=== PATIENT | female | born 1970 | race African-American/Black ===

== ENCOUNTER 2019-07-17 11:00 | Inpatient (IN) | payer BC ==
[2019-07-22 16:00] VITALS: BMI 26.1
[2019-07-23] MEDS ORDERED: LIDOCAINE 1%-EPI 1:100,000 30 ML MDV IJ ONE (07:21)
[2019-07-23] MEDS ORDERED: GENTAMICIN SO4 80 MG/2 ML VIAL ONE (07:21)
[2019-07-23] MEDS ORDERED: VANCOMYCIN 1,000 MG VIAL (RESTRICTED TO ID ONLY) ONE ×2 (07:21→08:36)
[2019-07-23] MEDS ORDERED: THROMBIN (BOVINE) 5,000 UNIT VIAL TP ONE ×2 (07:24→09:32)
[2019-07-23] MEDS ORDERED: MIDAZOLAM HCL 2 MG/2 ML SINGLE DOSE VIAL ONE ×2 (07:26→08:20)
[2019-07-23] MEDS ORDERED: ROCURONIUM BROMIDE 50 MG/5 ML SYRINGE ONE ×2 (07:26→09:07)
[2019-07-23] MEDS ORDERED: SUCCINYLCHOLINE CHLORIDE 200 MG/10 ML SYRINGE ONE (07:26)
[2019-07-23] MEDS ORDERED: PROPOFOL 20 ML ONE (07:26)
[2019-07-23] MEDS ORDERED: fentaNYL CITRATE 250 MCG/5 ML VIAL ONE (07:26)
[2019-07-23] MEDS ORDERED: LIDOCAINE HCL/PF 2% SDV 5ML VIAL ONE (07:28)
[2019-07-23] MEDS ORDERED: ALBUTEROL SO4 8 GM HFA INHALER IH ONE (07:37)
[2019-07-23] MEDS ORDERED: DEXMEDETOMIDINE HCL 200 MCG/2 ML IVPB ONE (07:38)
[2019-07-23] MEDS ORDERED: BUPIVACAINE HCL/PF 0.5% (5 MG/ML) 30 ML VIAL IJ ONE ×3 (07:38→10:35)
--- NOTE | 2019-07-23 08:02 | HP ---
History & Physical Update - History History: No Change - Physical Physical: No Change - Assessment Assessment: No Change - Plan Plan: No Change
[2019-07-23] MEDS ORDERED: MORPHINE 5 MG/10 ML AMP - FOR COMPOUNDING USE ONLY ONE (08:09)
[2019-07-23] MEDS ORDERED: BUPIVACAINE LIPOSOME/PF (EXPAREL) 266 MG/20 ML VIAL ONE (08:13)
[2019-07-23] MEDS ORDERED: VANCOMYCIN 1,000 MG VIAL (RESTRICTED TO ID ONLY) IVPB ONE ×2 (08:30→09:29)
[2019-07-23] MEDS ORDERED: ceFAZolin SODIUM 1 GM VIAL ONE ×2 (08:36→21:28)
[2019-07-23] MEDS ORDERED: ceFAZolin SODIUM 1 GM VIAL IVPB ONE (08:40)
[2019-07-23] MEDS ORDERED: BACITRACIN 50,000 UNITS VIAL NR ONE (09:21)
[2019-07-23] MEDS ORDERED: GENTAMICIN 80MG PREMIX BAG IVPB ONE (09:26)
[2019-07-23] MEDS ORDERED: GELATIN, ABSORBABLE 12-7MM EACH SPONGE TP ONE (09:31)
[2019-07-23] MEDS ORDERED: BUPIVACAINE LIPOSOME/PF (EXPAREL) 266 MG/20 ML VIAL IJ ONE ×2 (10:35)
[2019-07-23] MEDS ORDERED: NEOSTIGMINE METHYLSULFATE 0.5 MG/1 ML - 10 ML MDV ONE (10:47)
[2019-07-23] MEDS ORDERED: GLYCOPYRROLATE 0.2 MG/1 ML VIAL ONE ×2 (10:52→10:54)
--- NOTE | 2019-07-23 11:38 | OP ---
Operative Note - Note: Operative Date: 07/23/19 Pre-Operative Diagnosis: lumbar stenosis, instability and lumbar radiculopathy Operation: revision of lumbar fusion L3-S1 with decompression, replacment of hardware Surgeon: Tin Schmitz Irrigation Pump Installer: Xochitl Licona (Present for 90minutes of case) Anesthesiologist/CLIENT SUPPORT ADMINISTRATOR: Santhosh Daugherty Anesthesia: General Estimated Blood Loss (mls): 30 Drains, Volume Out (mls): 400 (franks) Fluid Volume Replaced (mls): 1,600 Operative Report Dictated: Yes
[2019-07-23] MEDS ORDERED: KETOROLAC TROMETHAMINE 30 MG/1 ML VIAL ONE (11:40)
[2019-07-23] MEDS ORDERED: ACETAMINOPHEN INJECTION 100 ML IVPB ONE (11:40)
[2019-07-23] MEDS ORDERED: ONDANSETRON 4 MG/2 ML VIAL ONE (11:41)
[2019-07-23] MEDS ORDERED: diphenhydrAMINE HCL 25 MG CAPSULE (FP) PO PRN (11:43)
[2019-07-23] MEDS: ONDANSETRON 4 MG/2 ML VIAL IVPUSH PRN ×2 (11:43→20:45)
[2019-07-23] MEDS: KETOROLAC TROMETHAMINE 30 MG/1 ML VIAL IVPUSH ONE (11:45)
[2019-07-23] MEDS ORDERED: HEPARIN NA (PORCINE) 5,000 UNITS/ML 1ML VIAL SQ SCH (11:45)
[2019-07-23] MEDS ORDERED: morphine SULFATE/PF 0.5 MG/ML (2cc Syringe - QUVA) IT ONE (11:46)
[2019-07-23] MEDS ORDERED: ONDANSETRON 4 MG/2 ML VIAL IVPUSH PRN (11:46)
[2019-07-23] MEDS ORDERED: oxyCODONE HCL 5 MG TABLET PO PRN (11:46)
[2019-07-23] MEDS ORDERED: NALOXONE HCL 0.4 MG/ML VIAL IVPUSH PRN (11:46)
[2019-07-23] MEDS ORDERED: ACETAMINOPHEN 325 MG TABLET (FP) PO SCH (12:00)
[2019-07-23] MEDS: ACETAMINOPHEN 1000 MG/100 ML VIAL (NON FORMULARY) IVPB SCH ×2 (12:01→18:32)
[2019-07-23] MEDS: LACTATED RINGERS SOLUTION 1,000 ML/1,000 ML INFUS.BAG IV SCH (12:45)
--- NOTE | 2019-07-23 13:47 | HP ---
CHIEF COMPLAINT:L3-S1 lamintetomy PCP: HISTORY OF PRESENT ILLNESS: Patient is a 49 y/o female with a history of asthma, GERD, fibroids s/p hysterectomy, and low back pain who presents s/p lumbar surgery. Patient has been having back pain since 2008. She did not have any trauma or events at that time that caused the back pain. She had her first surgery in 2098. She tolerated her pain for a long time until she needed surgery for the second and third time in 2019. After her third surgery she was left unable to walk because she wasnt able to walke or have sensation in her left leg. To get around she had to use a walker. She currently denies any complaints. Denies nausea, vomiting, headache, shortness of breath, or chest pain. ER course was notable for: (1) (2) (3) Recent Travel: PAST MEDICAL HISTORY: asthma, GERD, fibroids s/p hysterectomy, and low back pain PAST SURGICAL HISTORY:3x back surgery, hysterectomy Social History: Smoking: never Alcohol: socially Drugs: medical marijuana Allergies latex Allergy (Verified 07/23/19 07:05) "rash from tape" No Known Drug Allergies Allergy (Verified 07/23/19 07:05) HOME MEDICATIONS: Home Medications Medication Instructions Recorded Baclofen 5 mg PO BID 07/22/19 Dexlansoprazole [Dexilant] 60 mg PO DAILY 07/22/19 HYDROmorphone [Dilaudid -] 2 mg PO Q4H PRN 07/22/19 Medical Marijuana Oil PO PRN PRN 07/22/19 Oxycodone HCl/Acetaminophen 1 tab PO BID PRN 07/22/19 [Percocet 5-325 mg Tablet] Salmeterol/Fluticasone [Advair 1 inh PO BID 07/22/19 100Mcg/50Mcg -] REVIEW OF SYSTEMS CONSTITUTIONAL: Absent: fever, chills, diaphoresis, generalized weakness, malaise, loss of appetite, weight change HEENT: Absent: rhinorrhea, nasal congestion, throat pain, throat swelling, difficulty swallowing, mouth swelling, ear pain, eye pain, visual changes CARDIOVASCULAR: Absent: chest pain, syncope, palpitations, irregular heart rate, lightheadedness , peripheral edema RESPIRATORY: Absent: cough, shortness of breath, dyspnea with exertion, orthopnea, wheezing, stridor, hemoptysis GASTROINTESTINAL: Absent: abdominal pain, abdominal distension, nausea, vomiting, diarrhea, constipation, melena, hematochezia GENITOURINARY: Absent: dysuria, frequency, urgency, hesitancy, hematuria, flank pain, genital pain MUSCULOSKELETAL: Absent: myalgia, arthralgia, joint swelling, back pain, neck pain SKIN: Absent: rash, itching, pallor HEMATOLOGIC/IMMUNOLOGIC: Absent: easy bleeding, easy bruising, lymphadenopathy, frequent infections ENDOCRINE: Absent: unexplained weight gain, unexplained weight loss, heat intolerance, cold intolerance NEUROLOGIC: Absent: headache, focal weakness or paresthesias, dizziness, unsteady gait, seizure, mental status changes, bladder or bowel incontinence PSYCHIATRIC: Absent: anxiety, depression, suicidal or homicidal ideation, hallucinations. PHYSICAL EXAMINATION Vital Signs - 24 hr 07/23/19 07/23/19 07/23/19 06:53 06:59 07:00 Temperature 98.2 F 98.2 F Pulse Rate 84 84 Respiratory 20 20 Rate Blood Pressure 109/67 109/67 O2 Sat by Pulse 99 Oximetry (%) 07/23/19 11:22 Temperature 97.6 F Pulse Rate 98 H Respiratory 14 Rate Blood Pressure 122/85 O2 Sat by Pulse 100 Oximetry (%) GENERAL: Awake, alert, and fully oriented, in no acute distress. HEAD: Normal with no signs of trauma. EYES: Pupils equal, round and reactive to light, extraocular movements intact, EARS, NOSE, THROAT: . Moist mucous membranes. LUNGS: Breath sounds equal, clear to auscultation bilaterally. No wheezes, and no crackles. No accessory muscle use. HEART: Regular rate and rhythm, normal S1 and S2 without murmur, rub or gallop. ABDOMEN: Soft, nontender, not distended, normoactive bowel sounds, MUSCULOSKELETAL: dressing over back with drain in place LOWER EXTREMITIES: 2+ pulses, warm,sensation intact, lesser on left lower extremity then right, able to wiggle toes. SKIN: Warm, dry, normal turgor, no rashes or lesions noted, normal capillary refill. Laboratory Results - last 24 hr 07/23/19 07/23/19 06:28 08:53 Blood Type O POSITIVE O POSITIVE Antibody Screen Negative ASSESSMENT/PLAN: Patient is a 49 y/o female with a history of asthma, GERD, fibroids s/p hysterectomy, and low back pain who presents s/p lumbar surgery. #S/P L3-L5 laminectomy, hardware removal and replacement - Surgery with Dr. Schmitz - pain management as per anesthesia - patient on a lot of narcotics as an outpatinet - remove franks tomorrow - continue Lyrica 300 TID - f/u with PT tomorrow , patient to do PT with or without brace - patient to have a brace - drain in place with minimal drainage #Asthma - continue Advair as needed - albuteol as needed #GERD - protonix 40 daily #DVT ppx - heaprin TID FEN - NPO over night Dispo: monitor on 4w, f/u with Dr. Schmitz Visit type - Emergency Visit Emergency Visit: Yes ED Registration Date: 07/23/19 Care time: The patient presented to the Emergency Department on the above date and was hospitalized for further evaluation of their emergent condition. - New Patient This patient is new to me today: Yes Date on this admission: 07/24/19 - Critical Care Critical Care patient: No ATTENDING PHYSICIAN STATEMENT I saw and evaluated the patient. I reviewed the resident's note and discussed the case with the resident. I agree with the resident's findings and plan as documented. SUBJECTIVE: OBJECTIVE: ASSESSMENT AND PLAN:
[2019-07-23] MEDS ORDERED: ALBUTEROL SO4 0.083% IH SOL 2.5 MG/3 ML VIAL.NEB. NEB PRN (14:17)
[2019-07-23] MEDS: DOCUSATE SODIUM 100 MG CAPSULE (FP) PO SCH ×2 (15:08→21:50)
[2019-07-23] MEDS: oxyCODONE HCL 5 MG TABLET PO PRN (15:20)
--- NOTE | 2019-07-23 16:13 | PN ---
Teaching Attending Note Name of Resident: Marlin Baez ATTENDING PHYSICIAN STATEMENT I saw and evaluated the patient. I reviewed the resident's note and discussed the case with the resident. I agree with the resident's findings and plan as documented. SUBJECTIVE: CC: s/p lower back sx . HPI: 49 y/o lady with h/o asthma, GERD, fibroids s/p hysterectomy, and low back pain with previous lower back surgeries who presented for sx. patient had 3 surgeries to the lumbar area so far, with resultant LL ext weakness and numbness to a point she became walker dependent. she came fore revision of the fusion today. now she is awake, has minimal lower back pain, denies any numbness or tingling. has no CP or SOB. she received epidural injection in OR and franks was placed. OBJECTIVE: NAD,awake, alert, oriented x 3. MMM, no LAP in neck, NC on. no facial droop. CV: RRR, no MRG Lungs: CATB Ext : no edema or erythema on upper or lower ext Neuro: EOMI, round equal pupils, no facial droop, nl facial sensation , strength 5/5 in upper extremities proximally and distally. RLE: hip flexion 4/5 limited by pain, knee flexion 4/5 and knee extension 5/5. ankle dorsiflexion and plantar flexion 5/5 . LLE: hip flexion 2/5 limited by pain, knee flexion 4/5 and knee extension 4/5. ankle dorsiflexion and plantar flexion 5/5 . sensation to light touch nl. . ASSESSMENT AND PLAN: 49 y/o lady with h/o asthma, GERD, fibroids s/p hysterectomy, and low back pain with previous lower back surgeries who presented for sx. 1- h/o Spinal stenosis s/p revision of fusion L3-s1. - cont franks, will dc tomorrow - oxy ordered for pain. management per anesthesia for now. - PT in am - TLSO ordered but will not delay PT - monitor neuro exam. will evaluate deficits in am - will order labs tomorrow - tele monitoring for now 2- H/o Asthma, cont inhalers 3- DVT px: heparin dispo : HLOC
[2019-07-23] MEDS ORDERED: DEXTROSE 5%-WATER - 50 ML IVPB ONE (21:28)
[2019-07-23] MEDS: PREGABALIN 100 MG CAPSULE PO SCH (21:49)
[2019-07-23] MEDS: BACLOFEN 10 MG TABLET (FP) PO SCH (21:49)
[2019-07-23] MEDS: HEPARIN NA (PORCINE) 5,000 UNITS/ML 1ML VIAL SQ SCH (21:50)
[2019-07-23] MEDS: CEFAZOLIN 1 GM in DEXTROSE 5%-WATER - 50 ML IVPB SCH (21:50)
[2019-07-23] MEDS: FLUTICASONE/SALMETEROL 100 MCG/50 MCG DISKUS IH SCH (22:00)
[2019-07-24] MEDS: oxyCODONE HCL 5 MG TABLET PO PRN ×3 (00:04→19:54)
[2019-07-24] MEDS: ACETAMINOPHEN 1000 MG/100 ML VIAL (NON FORMULARY) IVPB SCH ×4 (00:18→17:30)
[2019-07-24] MEDS: CEFAZOLIN 1 GM in DEXTROSE 5%-WATER - 50 ML IVPB SCH ×3 (03:06→17:30)
[2019-07-24] MEDS ORDERED: ceFAZolin SODIUM 1 GM VIAL ONE ×3 (03:36→17:25)
[2019-07-24] MEDS ORDERED: DEXTROSE 5%-WATER - 50 ML IVPB ONE ×3 (03:36→17:25)
[2019-07-24] MEDS: HEPARIN NA (PORCINE) 5,000 UNITS/ML 1ML VIAL SQ SCH ×3 (05:13→22:31)
[2019-07-24] MEDS: DOCUSATE SODIUM 100 MG CAPSULE (FP) PO SCH ×3 (05:13→22:32)
[2019-07-24] MEDS: PREGABALIN 100 MG CAPSULE PO SCH ×3 (05:13→22:32)
[2019-07-24] MEDS: ONDANSETRON 4 MG/2 ML VIAL IVPUSH PRN (05:13)
[2019-07-24 08:08] LABS: HEMATOCRIT 28.7 % (32.4-45.2); HEMOGLOBIN 9.8 GM/dL (10.7-15.3); MCH 31.1 pg (25.7-33.7); MCHC 34.1 g/dl (32.0-36.0); MEAN CELL VOLUME 91.3 fl (80-96); MEAN PLT VOLUME 10.6 fl (7.5-11.1); PLATELET COUNT 247 K/MM3 (134-434); RBC 3.15 M/mm3 (3.60-5.2); RDW 14.9 % (11.6-15.6)
[2019-07-24 08:37] LABS: BLOOD UREA NITROGEN 5.9 mg/dL (7-18); CALCIUM 8.4 mg/dL (8.5-10.1); CREATININE 0.7 mg/dL (0.55-1.3); POTASSIUM 3.5 mmol/L (3.5-5.1)
--- NOTE | 2019-07-24 09:03 | PN ---
Progress Note (short form) - Note Progress Note: Surgery POD #1 revision of lumbar fusion L3-S1 with decompression and revision. Patient seen and examined at bedside with no complaints. She states that she still has a "heaviness" in her left leg which she had preoperatively. She has not been out of bed yet, but her franks was just removed and she has been tolerating her diet. Her pain is controlled and she denies any CP, SOB, N/V, fever or chills. Vital Signs Temp 98.3 F 07/24/19 02:00 Pulse 99 H 07/24/19 06:00 Resp 20 07/24/19 06:00 BP 109/58 L 07/24/19 06:00 Pulse Ox 100 07/23/19 21:00 Intake & Output 07/23/19 07/23/19 07/24/19 11:59 23:59 11:59 Intake Total 6189 071 8105 Output Total 620 435 40 Balance 1180 -35 1610 Intake: IV 1800 1250 LACTATED RINGERS SOLUTION 1250 1,000 ml In 1,000 ml @ 125 mls/hr IV ASDIR NEFTALY Rx#:[id number] IVPB 400 Oral 400 Output: Drainage 20 235 40 Right Lower Back 205 40 Urine 400 200 Estimated Blood Loss 200 Other: Voiding Method Indwelling Catheter Bowel Movement No CBC, BMP 07/24/19 07:13 07/24/19 07:13 PE: A&Ox3, NAD Unlabored resp on RA Lumbar spine: Incision c/d/i with surrounding tissue intact with no erythema, edema or evidence of collection or d/c. Drain removed with tip fully intact, ostomy clean and dry with no active d/c. B/L LE compartments soft, supple and non-tender with 5/5 dorsi/plantar flexion and +2 DP pulses Problem List - Problems (1) S/P lumbar fusion Assessment/Plan: POD #1 multilumbar decompression/fusion and revision. Patient doing well. -Regular diet -OOB with TLSO brace as tolerated -DVT prophylaxis -Encourage IS -D/c planning for home later today pending PT eval, TOV and pain control Evaluation and plan discussed with Dr Schmitz Code(s): Z98.1 - ARTHRODESIS STATUS
[2019-07-24] MEDS: FERROUS SO4 325 MG TABLET (FP) PO SCH (10:11)
[2019-07-24] MEDS: oxyCODONE HCL 10 MG SUSTAINED ACTING TABLET PO SCH ×2 (10:11→23:57)
[2019-07-24] MEDS: BACLOFEN 10 MG TABLET (FP) PO SCH ×2 (10:11→22:31)
[2019-07-24] MEDS: PANTOPRAZOLE 40 MG TABLET (FP) PO SCH (10:11)
[2019-07-24] MEDS: FOLIC ACID 1 MG TABLET (FP) PO SCH (10:12)
[2019-07-24] MEDS: FLUTICASONE/SALMETEROL 100 MCG/50 MCG DISKUS IH SCH ×2 (10:13→22:32)
--- NOTE | 2019-07-24 11:04 | PN ---
Progress Note (short form) - Note Progress Note: Anesthesia/pain Pt seen and examined S:Alert and awake residual pain O: Vital Signs Temperature 98.3 F 07/24/19 02:00 Pulse Rate 99 H 07/24/19 06:00 Respiratory Rate 20 07/24/19 06:00 Blood Pressure 109/58 L 07/24/19 06:00 O2 Sat by Pulse Oximetry (%) 100 07/23/19 21:00 CBC, BMP 07/24/19 07:13 07/24/19 07:13 A/P: Current Active Problems S/P lumbar fusion (Acute) s/p L3-S1 lumbar fusion doing well post op Encourage to take po pain meds as needed Continue Current care Dino Tanner M.D.
[2019-07-24] MEDS: LACTATED RINGERS SOLUTION 1,000 ML/1,000 ML INFUS.BAG IV SCH (11:45)
--- NOTE | 2019-07-24 16:25 | SURG ---
Surgery Jet Piercer Operator Note Jet Piercer Operator: Xochitl Licona PA-C Date of Service: 07/24/19 Diagnosis: L34 stenosis and facet arthropathy above L4-5 fusion with persisting compression Procedure: bilateral laminectomies of L34 bilateral laminectomies of L45 bilateral reoperative exposure L5S1 L34 transpedicular approach L45 transpedicular approach fluoroscopy microdissection exploration of spinal fusion interbody CAGE L34 interbody and posterior/lateral arthrodesis L34 posterior/lateral arthrodesis L45 posterior/lateral arthrodesis L5S1 L3-S1 posterior segmental instrumentation(technically challenging) local autograft L3 osteotomy L4 osteotomy L5 osteotomy S1 osteotomy removal posterior segmental instrumenation bilateral soft tissue advancement flaps(50cm) I was present for >50 % of the operation. In at 8: 35 until 9:20 and then again 10:11 to 11:19. For further detail, please refer to operative report. Visit type - Case Type Case Type: Scheduled - Emergency Emergency Visit: No - New patient This patient is new to me today: Yes Date on this admission: 07/24/19
--- NOTE | 2019-07-24 17:39 | PN ---
Physical Exam: SUBJECTIVE: Patient seen and examined OBJECTIVE: Vital Signs Period Temp Pulse Resp BP Sys/Mcnamara Pulse Ox Last 24 Hr 98.3 F-103.1 F 75-99 18-20 97-137/57-75 98-100 GENERAL: The patient is awake, alert, and fully oriented, in no acute distress. HEAD: Normal with no signs of trauma. EYES: PERRL, extraocular movements intact, sclera anicteric, conjunctiva clear. No ptosis. ENT: Ears normal, nares patent, oropharynx clear without exudates, moist mucous membranes. NECK: Trachea midline, full range of motion, supple. LUNGS: Breath sounds equal, clear to auscultation bilaterally, no wheezes, no crackles, no accessory muscle use. HEART: Regular rate and rhythm, S1, S2 without murmur, rub or gallop. ABDOMEN: Soft, nontender, nondistended, normoactive bowel sounds, no guarding, no rebound, no hepatosplenomegaly, no masses. EXTREMITIES: 2+ pulses, warm, well-perfused, no edema. NEUROLOGICAL: Cranial nerves II through XII grossly intact. Normal speech, gait not observed. PSYCH: Normal mood, normal affect. SKIN: Warm, dry, normal turgor, no rashes or lesions noted Laboratory Results - last 24 hr 07/24/19 07/24/19 07:13 07:13 WBC 8.0 RBC 3.15 L Hgb 9.8 L Hct 28.7 L MCV 91.3 MCH 31.1 MCHC 34.1 RDW 14.9 Plt Count 247 MPV 10.6 Sodium 139 Potassium 3.5 Chloride 105 Carbon Dioxide 28 Anion Gap 6 L BUN 5.9 L Creatinine 0.7 Est GFR (CKD-EPI)AfAm 117.09 Est GFR (CKD-EPI)NonAf 101.02 Random Glucose 100 Calcium 8.4 L Active Medications Generic Name Dose Route Start Last Admin Trade Name Freq PRN Reason Stop Dose Admin Acetaminophen 1,000 mg 07/23/19 12:00 07/24/19 17:30 Ofirmev Injection - IVPB 07/24/19 23:59 1,000 mg Q6H NEFTALY Administration Acetaminophen 650 mg 07/24/19 17:26 Tylenol - PO Q6H PRN FEVER Albuterol Sulfate 1 amp 07/23/19 14:17 Ventolin 0.083% Nebulizer Soln - NEB Q4H PRN SHORT OF BREATH/WHEEZING Baclofen 5 mg 07/23/19 22:00 07/24/19 10:11 Lioresal - PO 5 mg BID NEFTALY Administration Diphenhydramine HCl 25 mg 07/23/19 11:46 Benadryl Injection - IVPUSH ONCE PRN FOR ITCHING Diphenhydramine HCl 25 mg 07/23/19 11:43 Benadryl - PO Q6H PRN FOR ITCHING Docusate Sodium 100 mg 07/23/19 14:00 07/24/19 13:38 Colace - PO 100 mg TID NEFTALY Administration Ferrous Sulfate 325 mg 07/24/19 10:00 07/24/19 10:11 Feosol - PO 325 mg DAILY NEFTALY Administration Folic Acid 1 mg 07/24/19 10:00 07/24/19 10:12 Folic Acid - PO 1 mg DAILY NEFTALY Administration Heparin Sodium (Porcine) 5,000 unit 07/23/19 22:00 07/24/19 13:38 Heparin - SQ 5,000 unit Q8H NEFTALY Administration Lactated Ringer's 1,000 ml in 1,000 mls @ 125 mls/hr 07/23/19 11:45 07/24/19 11:45 Lactated Ringers Solution IV 125 mls/hr ASDIR NEFTALY Administration Cefazolin Sodium 1 gm/ 50 mls @ 100 mls/hr 07/23/19 21:30 07/24/19 17:30 Dextrose IVPB 100 mls/hr Q8H-IV NEFTALY Administration Naloxone HCl 0.4 mg 07/23/19 11:46 Narcan - IVPUSH ONCE PRN Sedation Ondansetron HCl 4 mg 07/23/19 11:46 Zofran Injection IVPUSH ONCE PRN NAUSEA Ondansetron HCl 4 mg 07/23/19 11:43 07/24/19 05:13 Zofran Injection IVPUSH 4 mg Q6H PRN Administration NAUSEA Oxycodone HCl 5 mg 07/23/19 11:46 Roxicodone - PO Q3H PRN Mild Pain 1-3 Oxycodone HCl 10 mg 07/23/19 11:46 07/24/19 05:13 Roxicodone - PO 10 mg Q3H PRN Administration Moderate Pain 4-6 Oxycodone HCl 10 mg 07/24/19 11:46 07/24/19 10:11 Oxycontin - PO 10 mg BID NEFTALY Administration Pantoprazole Sodium 40 mg 07/24/19 10:00 07/24/19 10:11 Protonix - PO 40 mg DAILY NEFTALY Administration Pregabalin 300 mg 07/23/19 22:00 07/24/19 12:21 Lyrica - PO 300 mg TID NEFTALY Administration Fluticasone/Salmeterol 1 puff 07/23/19 22:00 07/24/19 10:13 Advair 100mcg/50mcg - IH 1 puff BID NEFTALY Administration ASSESSMENT/PLAN: ATTENDING PHYSICIAN STATEMENT I saw and evaluated the patient. I reviewed the resident's note and discussed the case with the resident. I agree with the resident's findings and plan as documented. SUBJECTIVE: OBJECTIVE: ASSESSMENT AND PLAN:
--- NOTE | 2019-07-24 18:53 | PN ---
Teaching Attending Note Name of Resident: Ish Castillo ATTENDING PHYSICIAN STATEMENT I saw and evaluated the patient. I reviewed the resident's note and discussed the case with the resident. I agree with the resident's findings and plan as documented. SUBJECTIVE: pain in back. had fever this afternoon. OBJECTIVE: NAD,awake CV: RRR, no MRG Lungs: CATB Ext : no edema or erythema on upper or lower ext Neuro of Le: RLE: hip flexion 5/5 , knee flexion 5/5 and knee extension 5/5. ankle dorsiflexion and plantar flexion 5/5 . LLE: hip flexion 3/5 limited by pain, knee flexion 4/5 and knee extension 4/5. ankle dorsiflexion and plantar flexion 5/5 . sensation to light touch decreased on LLE . reflexes nee jerk 1+ on R and 0 on L ASSESSMENT AND PLAN: 49 y/o lady with h/o asthma, GERD, fibroids s/p hysterectomy, and low back pain with previous lower back surgeries who presented for sx. 1- h/o Spinal stenosis s/p revision of fusion L3-s1. - franks dc'd . patient did not void and was straight cathed twice - now has fever, will place a franks, get UA and if Positive U cx. send blood cx - pain management oxycontin and oxycodone 2- normocytic anemia: likely acute blood loss but suspect chronci anemia due to reproted blood loss of 30 cc only. need full w/u as out pt if it does not recover. and maybe heme eval 3- H/o Asthma, cont inhalers 4- DVT px: heparin Dispo : HLOC
[2019-07-24 19:57] LABS: PH,URINE 7.5 (5.0-8.0); URINE APPEARANCE CLEAR; URINE BILIRUBIN NEGATIVE (NEGATIVE); URINE COLOR YELLOW; URINE GLUCOSE (UA) NEGATIVE (NEGATIVE); URINE KETONE NEGATIVE (NEGATIVE); URINE LEUK ESTERASE NEGATIVE (NEGATIVE); URINE NITRITE NEGATIVE (NEGATIVE); URINE PROTEIN NEGATIVE (NEGATIVE); URINE UROBILINOGEN 0.2 mg/dL (0.2-1.0)
[2019-07-24] MEDS ORDERED: KETOROLAC TROMETHAMINE 30 MG/1 ML VIAL IM ONE (20:49)
[2019-07-25 00:48] LABS: BASO % 0.4 % (0-2.0); HEMOGLOBIN 10.3 GM/dL (10.7-15.3); LYMPH % 13.1 % (8-40); MCHC 32.2 g/dl (32.0-36.0); MEAN CELL VOLUME 93.2 fl (80-96); MEAN PLT VOLUME 11.4 fl (7.5-11.1); MONO % 9.3 % (3.8-10.2); NEUT % 77.2 % (42.8-82.8); PLATELET COUNT 245 K/MM3 (134-434); RBC 3.44 M/mm3 (3.60-5.2); RDW 15.2 % (11.6-15.6)
[2019-07-25 01:09] LABS: ALBUMIN 2.8 g/dl (3.4-5.0); BILIRUBIN,DIRECT 0.1 mg/dL (0.0-0.2); BILIRUBIN,TOTAL 0.2 mg/dL (0.2-1); BLOOD UREA NITROGEN 4.4 mg/dL (7-18); CALCIUM 8.2 mg/dL (8.5-10.1); CREATININE 0.9 mg/dL (0.55-1.3); POTASSIUM 3.4 mmol/L (3.5-5.1); TOT PROT 5.9 g/dl (6.4-8.2)
[2019-07-25] MEDS ORDERED: SODIUM PHOSPHATE/NA BIPHOS 133 ML ENEMA PR ONE (01:09)
[2019-07-25] MEDS ORDERED: VANCOMYCIN 1 GM in D5W (PRE-DOCKED) 1,000 MG/250 ML IVPB ONE (01:16)
[2019-07-25] MEDS ORDERED: LACTATED RINGERS SOLUTION 1,000 ML/1,000 ML INFUS.BAG IV SCH ×2 (01:30→10:28)
--- NOTE | 2019-07-25 01:44 | HOSP ---
Physical Examination Vital Signs: Vital Signs Temperature 98.7 F 07/25/19 00:00 Pulse Rate 124 H 07/25/19 00:00 Respiratory Rate 20 07/24/19 17:28 Blood Pressure 106/64 07/24/19 20:00 O2 Sat by Pulse Oximetry (%) 100 07/24/19 21:00 Labs: CBC, BMP 07/25/19 00:00 07/25/19 00:00 Hospitalist Encounter Assessment: 49yo woman s/p spinal stenosis s/p revision of fusion L3-s1 -07/23, POD #3, developed high fever of 103F this evening, tachycardic, +lactic acidosis of 3, new leukocytosis. I believe she is septic at this time, must evaluate for different sources of infection. CXR showed only some possible right lung base atelectasis, blood cultures sent, UA, urine culture sent. MADYSON to inspect surgical site, evaluate for proper wound healing dressing change. ID consult. For now will monitor VS, fever curve closely. Pt c/o lower abdominal pain, chemistry, hepatic panel , liver u/s ordered. Treat with broad spectrum abx at this time- vancomcyin/pip/tazo., IV fluids. Must trend lactate.
[2019-07-25] MEDS ORDERED: DEXTROSE 5%-WATER 100 ML IVPB ONE ×3 (02:09→17:03)
[2019-07-25] MEDS ORDERED: PIPERACILLIN/TAZOBACTAM 4.5 GM VIAL IVPB ONE ×3 (02:09→17:03)
[2019-07-25] MEDS: PIPERACILLIN/TAZOB 4.5 GM 4.5 GM in DEXTROSE 5%-WATER 100 ML IVPB SCH ×3 (02:25→17:23)
[2019-07-25] MEDS: oxyCODONE HCL 5 MG TABLET PO PRN ×2 (06:09→15:29)
[2019-07-25] MEDS: PREGABALIN 100 MG CAPSULE PO SCH ×3 (06:09→22:07)
[2019-07-25] MEDS: DOCUSATE SODIUM 100 MG CAPSULE (FP) PO SCH ×3 (06:10→22:07)
[2019-07-25] MEDS: HEPARIN NA (PORCINE) 5,000 UNITS/ML 1ML VIAL SQ SCH ×3 (06:10→22:15)
[2019-07-25] MEDS: ACETAMINOPHEN 325 MG TABLET (FP) PO PRN ×3 (06:10→22:07)
[2019-07-25 06:50] LABS: BASO % 0.2 % (0-2.0); EOS % 0.1 % (0-4.5); HEMATOCRIT 28.9 % (32.4-45.2); HEMOGLOBIN 9.8 GM/dL (10.7-15.3); LYMPH % 13.2 % (8-40); MCH 30.9 pg (25.7-33.7); MCHC 33.9 g/dl (32.0-36.0); MEAN CELL VOLUME 91.1 fl (80-96); MEAN PLT VOLUME 11.2 fl (7.5-11.1); MONO % 10.5 % (3.8-10.2); PLATELET COUNT 233 K/MM3 (134-434); RBC 3.17 M/mm3 (3.60-5.2); RDW 15.4 % (11.6-15.6); WHITE BLOOD COUNT 15.9 K/mm3 (4.0-10.0)
[2019-07-25 06:59] LABS: ALBUMIN 2.6 g/dl (3.4-5.0); ALK PHOS 78 U/L (45-117); ANION GAP 6 MMOL/L (8-16); BILIRUBIN,TOTAL 0.3 mg/dL (0.2-1); BLOOD UREA NITROGEN 5.2 mg/dL (7-18); CALCIUM 8.4 mg/dL (8.5-10.1); CHLORIDE 103 mmol/L (98-107); CO2 30 mmol/L (21-32); CREATININE 0.7 mg/dL (0.55-1.3); GLUCOSE,RANDOM 104 mg/dL (74-106); LDH 133 U/L (84-246); POTASSIUM 3.3 mmol/L (3.5-5.1); SGOT/AST 28 U/L (15-37); SGPT/ALT 25 U/L (13-61); SODIUM 139 mmol/L (136-145); TOT PROT 5.6 g/dl (6.4-8.2)
[2019-07-25] MEDS ORDERED: POTASSIUM CHLORIDE TABS 20 MEQ TABLET.ER (FP) PO ONE (07:29)
[2019-07-25] MEDS ORDERED: KCL 10 MEQ IVPB 10 MEQ/100 ML INFUS.BAG IVPB SCH (07:30)
[2019-07-25] MEDS: FERROUS SO4 325 MG TABLET (FP) PO SCH (09:10)
[2019-07-25] MEDS: oxyCODONE HCL 10 MG SUSTAINED ACTING TABLET PO SCH ×2 (09:10→22:15)
[2019-07-25] MEDS: BACLOFEN 10 MG TABLET (FP) PO SCH ×2 (09:10→22:09)
[2019-07-25] MEDS: PANTOPRAZOLE 40 MG TABLET (FP) PO SCH (09:10)
[2019-07-25] MEDS: FOLIC ACID 1 MG TABLET (FP) PO SCH (09:11)
[2019-07-25] MEDS: FLUTICASONE/SALMETEROL 100 MCG/50 MCG DISKUS IH SCH ×2 (09:14→22:20)
[2019-07-25] MEDS ORDERED: POLYETHYLENE GLYCOL 3350 119 GM BTL PO ONE (13:31)
[2019-07-25] MEDS ORDERED: POLYETHYLENE GLYCOL 3350 119 GM BTL PO PRN (13:32)
--- NOTE | 2019-07-25 14:24 | PN ---
Physical Exam: SUBJECTIVE: Patient seen and examined. Pt. had fever to 103.1 earlier in the evening. Pt. had fever over night to 101.1 with continued elevated WBC count. Pt. started on Zosyn and given Vancomycin x 1 dose. OBJECTIVE: Vital Signs Period Temp Pulse Resp BP Sys/Mcnamara Pulse Ox Last 24 Hr 98.7 F-103.1 F 89-128 18-20 106-137/60-72 100 GENERAL: The patient is awake, alert, and fully oriented, in no acute distress. HEAD: Normal with no signs of trauma. EYES: PERRL, extraocular movements intact, sclera anicteric, conjunctiva clear. No ptosis. ENT: Ears normal, nares patent, oropharynx clear without exudates, moist mucous membranes. NECK: Trachea midline, full range of motion, supple. LUNGS: Breath sounds equal, clear to auscultation bilaterally, no wheezes, no crackles, no accessory muscle use. HEART: Regular rate and rhythm, S1, S2 without murmur, rub or gallop. ABDOMEN: Soft, nontender, nondistended, normoactive bowel sounds, no guarding, no rebound, no hepatosplenomegaly, no masses. EXTREMITIES: 2+ dorsal pedal pulses, warm, no clf tenderness, well-perfused, no edema. B/l UE: 5/5 strength through out. Proximal LLE: 3/5, Distal LLE 4/5 strength throughout, RLE: 5/5 muscle strength throughout NEUROLOGICAL: Cranial nerves II through XII grossly intact. Normal speech, gait not observed. LLE: numbness- unchanged since prior to procedure PSYCH: Normal mood, normal affect. SKIN: Warm, dry, normal turgor, back skin wounds non-purulent, non-erythematous Laboratory Results - last 24 hr 07/24/19 07/25/19 07/25/19 19:00 00:00 00:00 WBC 17.0 H RBC 3.44 L Hgb 10.3 L Hct 32.0 L MCV 93.2 MCH 30.0 MCHC 32.2 RDW 15.2 Plt Count 245 MPV 11.4 H Absolute Neuts (auto) 13.1 H Neutrophils % 77.2 Lymphocytes % 13.1 Monocytes % 9.3 Eosinophils % 0.0 Basophils % 0.4 Nucleated RBC % 0 Sodium 139 Potassium 3.4 L Chloride 104 Carbon Dioxide 26 Anion Gap 9 BUN 4.4 L Creatinine 0.9 Est GFR (CKD-EPI)AfAm 86.41 Est GFR (CKD-EPI)NonAf 74.55 Random Glucose 165 H Lactic Acid Calcium 8.2 L Total Bilirubin 0.2 Direct Bilirubin 0.1 AST 31 ALT 27 Alkaline Phosphatase 78 LD Total Troponin I Total Protein 5.9 L Albumin 2.8 L Urine Color Yellow Urine Appearance Clear Urine pH 7.5 Ur Specific Delmar 1.007 L Urine Protein Negative Urine Glucose (UA) Negative Urine Ketones Negative Urine Blood Negative Urine Nitrite Negative Urine Bilirubin Negative Urine Urobilinogen 0.2 Ur Leukocyte Esterase Negative 07/25/19 07/25/19 07/25/19 00:00 05:52 05:52 WBC 15.9 H RBC 3.17 L Hgb 9.8 L Hct 28.9 L MCV 91.1 MCH 30.9 MCHC 33.9 RDW 15.4 Plt Count 233 MPV 11.2 H Absolute Neuts (auto) 12.1 H Neutrophils % 76.0 Lymphocytes % 13.2 Monocytes % 10.5 H Eosinophils % 0.1 D Basophils % 0.2 Nucleated RBC % 0 Sodium 139 Potassium 3.3 L Chloride 103 Carbon Dioxide 30 Anion Gap 6 L BUN 5.2 L Creatinine 0.7 Est GFR (CKD-EPI)AfAm 117.09 Est GFR (CKD-EPI)NonAf 101.02 Random Glucose 104 Lactic Acid 3.0 H* Calcium 8.4 L Total Bilirubin 0.3 Direct Bilirubin AST 28 ALT 25 Alkaline Phosphatase 78 LD Total 133 Troponin I < 0.02 Total Protein 5.6 L Albumin 2.6 L Urine Color Urine Appearance Urine pH Ur Specific Delmar Urine Protein Urine Glucose (UA) Urine Ketones Urine Blood Urine Nitrite Urine Bilirubin Urine Urobilinogen Ur Leukocyte Esterase 07/25/19 05:52 WBC RBC Hgb Hct MCV MCH MCHC RDW Plt Count MPV Absolute Neuts (auto) Neutrophils % Lymphocytes % Monocytes % Eosinophils % Basophils % Nucleated RBC % Sodium Potassium Chloride Carbon Dioxide Anion Gap BUN Creatinine Est GFR (CKD-EPI)AfAm Est GFR (CKD-EPI)NonAf Random Glucose Lactic Acid 1.1 Calcium Total Bilirubin Direct Bilirubin AST ALT Alkaline Phosphatase LD Total Troponin I Total Protein Albumin Urine Color Urine Appearance Urine pH Ur Specific Delmar Urine Protein Urine Glucose (UA) Urine Ketones Urine Blood Urine Nitrite Urine Bilirubin Urine Urobilinogen Ur Leukocyte Esterase Active Medications Current Medications Acetaminophen (Tylenol -) 650 mg PO Q6H PRN PRN Reason: FEVER Last Admin: 07/25/19 06:10 Dose: 650 mg Albuterol Sulfate (Ventolin 0.083% Nebulizer Soln -) 1 amp NEB Q4H PRN PRN Reason: SHORT OF BREATH/WHEEZING Baclofen (Lioresal -) 5 mg PO BID [facility] Last Admin: 07/25/19 09:10 Dose: 5 mg Diphenhydramine HCl (Benadryl Injection -) 25 mg IVPUSH ONCE PRN PRN Reason: FOR ITCHING Diphenhydramine HCl (Benadryl -) 25 mg PO Q6H PRN PRN Reason: FOR ITCHING Docusate Sodium (Colace -) 100 mg PO TID [facility] Last Admin: 07/25/19 06:10 Dose: 100 mg Docusate Sodium (Colace -) 100 mg PO BID [facility] Folic Acid (Folic Acid -) 1 mg PO DAILY [facility] Last Admin: 07/25/19 09:11 Dose: 1 mg Heparin Sodium (Porcine) (Heparin -) 5,000 unit SQ Q8H [facility] Last Admin: 07/25/19 06:10 Dose: 5,000 unit Piperacillin Sod/Tazobactam (Sod 4.5 gm/ Dextrose) 100 mls @ 200 mls/hr IVPB Q8H-IV NEFTALY; Protocol Lactated Ringer's (Lactated Ringers Solution) 1,000 ml in 1,000 mls @ 42 mls/ hr IV ASDIR [facility] Naloxone HCl (Narcan -) 0.4 mg IVPUSH ONCE PRN PRN Reason: Sedation Ondansetron HCl (Zofran Injection) 4 mg IVPUSH ONCE PRN PRN Reason: NAUSEA Ondansetron HCl (Zofran Injection) 4 mg IVPUSH Q6H PRN PRN Reason: NAUSEA Last Admin: 07/24/19 05:13 Dose: 4 mg Oxycodone HCl (Roxicodone -) 5 mg PO Q3H PRN PRN Reason: Mild Pain 1-3 Oxycodone HCl (Roxicodone -) 10 mg PO Q3H PRN PRN Reason: Moderate Pain 4-6 Last Admin: 07/25/19 06:09 Dose: 10 mg Oxycodone HCl (Oxycontin -) 10 mg PO BID [facility] Last Admin: 07/25/19 09:10 Dose: 10 mg Pantoprazole Sodium (Protonix -) 40 mg PO DAILY [facility] Last Admin: 07/25/19 09:10 Dose: 40 mg Polyethylene Glycol (Miralax (For Daily Use) -) 17 gm PO DAILY PRN PRN Reason: CONSTIPATION Pregabalin (Lyrica -) 300 mg PO TID [facility] Last Admin: 07/25/19 06:09 Dose: 300 mg Fluticasone/Salmeterol (Advair 100mcg/50mcg -) 1 puff IH BID [facility] Last Admin: 07/25/19 09:14 Dose: 1 puff ASSESSMENT/PLAN: Patient is a 49 y/o female with a history of asthma, GERD, fibroids s/p hysterectomy, and low back pain who presents s/p lumbar surgery. #S/P L3-L5 laminectomy, hardware removal and replacement -POD #2 -Surgery with Dr. Schmitz -pain management as per anesthesia -patient on a lot of narcotics as an outpatinet -remove franks tomorrow -continue Lyrica 300 TID -f/u with PT tomorrow, patient to do PT with or without brace--> walked 75 ft. today. Pt. states she will have outpatient PT -patient to have a brace -drain in place with minimal drainage #Urinary Retention -s/p straight-cath--> now with Franks -f/u Abdominal US, if negative will do CT Scan -likely from residual anaesthesia #Fever -Fever to 101.1 overnight -UA Negative -CXR Negative -LA: 3.1 -->1.1 -started Zosyn, given Vanco x 1 -f/u BCx. #Asthma -continue Advair as needed -albuterol as needed #GERD -protonix 40 daily #DVT ppx -heparin TID #FEN -LR @ 42 -monitor electrolytes as needed -Regular diet Dispo: monitor on 4w, f/u with Dr. Schmitz ATTENDING PHYSICIAN STATEMENT I saw and evaluated the patient. I reviewed the resident's note and discussed the case with the resident. I agree with the resident's findings and plan as documented. SUBJECTIVE: OBJECTIVE: ASSESSMENT AND PLAN:
[2019-07-25] MEDS ORDERED: VANCOMYCIN 1,000 MG in DEXTROSE 5%-WATER - 250 ML IVPB SCH (15:15)
--- NOTE | 2019-07-25 15:29 | PN ---
Progress Note (short form) - Note Progress Note: ID consult dictated postop fever s/p revision of prior lumbar surgery and replacement of hardware 07/23 now with fevers and rigors she had urinary retention yesterday requiring several straight caths and then franks placement still with abdominal discomfort fever to 103 now with chills ?abdominal, ?urinary (although UA is negative) going for sonogram would get ct scan abd/pelvis if sonogram is unrevealing cultures pending vancomycin and zosyn for now d/w hospitalist Problem List - Problems (1) Postoperative fever Code(s): R50.82 - POSTPROCEDURAL FEVER (2) S/P lumbar fusion Code(s): Z98.1 - ARTHRODESIS STATUS
[2019-07-25] MEDS: VANCOMYCIN 1 GRAM (PRE-DOCKED) 1,000 MG/250 ML BAG IVPB SCH (15:36)
--- NOTE | 2019-07-25 15:49 | PN ---
Teaching Attending Note Name of Resident: Ish Castillo ATTENDING PHYSICIAN STATEMENT I saw and evaluated the patient. I reviewed the resident's note and discussed the case with the resident. I agree with the resident's findings and plan as documented. SUBJECTIVE Fever and chills. Lower abdominal discomfort. cough with yellow sputum, since yesterday. No SOB. OBJECTIVE: NAD, awake. CV: RRR, no MRG Lungs: CATB Abd: soft, TTP in suprapubic area, with no rebound or rigidity Ext: no edema or erythema on upper or lower ext Neuro of LE: RLE: hip flexion 5/5 , knee flexion 5/5 and knee extension 5/5. ankle dorsiflexion and plantar flexion 5/5 . LLE: hip flexion 4/5 , knee flexion 4/5 and knee extension 5/5. ankle dorsiflexion and plantar flexion 5/5 . Sensation to light touch decreased on LLE . Reflexes knee jerk 1+ on L and 2+ on R ASSESSMENT AND PLAN: 49 y/o lady with h/o asthma, GERD, fibroids s/p hysterectomy, and low back pain with previous lower back surgeries who presented for sx. 1- Sepsis: source is still unknown. ? concern for bacteremia. Had straight cath twice yesterday--.? UTI due to trauma. has cough and spuutm production but Cxray with no infiltrate Dr. Self evaluated the wound that does not seem to be infected. - US pending - follow Blood cx - cont vanco and zosyn - possible CT of Abd /pelvis 2- h/o Spinal stenosis s/p revision of fusion L3-s1. - pain management oxycontin and oxycodone - PT eval 3- Normocytic anemia: need full w/u as out pt if it does not recover. and maybe heme eval 4- H/o Asthma, cont inhalers 5- DVT px: heparin Dispo: HLOC. ASSESSMENT AND PLAN:
--- NOTE | 2019-07-25 17:26 | CONS ---
DATE OF CONSULTATION: 07/25/2019 This is a 49-year-old woman who has a past medical history of asthma and GERD. She has a history of back surgery in the past, most recently in April. Her first surgery was in 2008, and this April she underwent surgery for her back in [place], and she had surgery on April 21. After the surgery she had severe pain and she could not walk. She was hospitalized at [facility] in [place] and had a second back surgery there on May 01. She was ultimately discharged home on May 11. She reports during that admission she never had any fevers or infectious complications. She has continued to have back pain, and she sought an opinion from the neurosurgeon, who admitted her on the , and she underwent revision of lumbar fusion L3-S1 with decompression and replacement of hardware. I am asked to see her because of postop fever. Yesterday evening she had a fever of 103.1 with chills. She is completely awake and alert and a very good historian. She reports that she prior to the back surgery she had been feeling fine. She has no fevers or chills, no cough, no diarrhea, or dysuria. She attributes her symptoms to difficulty with her urination. She says postoperatively her Quintero catheter was removed. She was not able to void. She had 2 separate straight catheterizations and ultimately required replacement of the catheter last night. She reports abdominal discomfort after all this happened. She has not had a bowel movement, but she is passing gas. She has had no nausea or vomiting. She is eating, and she has been up with physical therapy. The surgeon came by this afternoon and looked at the wound and did not find any signs of infection. She had a chest x-ray done as well that was clear. She was given overnight piperacillin/tazobactam as her labs overnight showed a white count of 17,000 and a lactic acid of 3. PAST MEDICAL HISTORY: Notable for GERD and asthma. PAST SURGICAL HISTORY: Notable for a fibroid. She is status post hysterectomy. She has had back surgery 3 times prior to this one. MEDICATIONS: Her medications at home include baclofen, Dexilant, Dilaudid, Percocet, Symbicort. She also takes oxycodone with Tylenol and Lyrica. SOCIAL HISTORY: She does not have any children. 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 She denies any cigarette or substance use. She does use medical marijuana. ALLERGIES: She is allergic to LATEX. REVIEW OF SYSTEMS: Currently her only complaint is reported as some lower abdominal discomfort. The Quintero is in place with clear urine. PHYSICAL EXAMINATION: General: She is a very pleasant woman in no acute distress. Vital Signs: Temperature is 100.4, pulse of 83, blood pressure 109/71, respiratory rate of 20. HEENT: She is normocephalic. Eyes are anicteric. She has no conjunctival hemorrhages. She has no thrush. Neck: Her neck is supple. Lungs: Clear to auscultation. Heart: Regular rate and rhythm. Abdomen: Soft. She has some diffuse abdominal discomfort. No rebound or guarding, but on palpation she has bilateral lower and some left upper quadrant discomfort. She has bowel sounds. Genitourinary: She has a Quintero draining clear urine. Extremities: Without edema. Back: She has a dressing on her back that was inspected by the neurosurgeon today. LABORATORY: Labs are notable for a white count of 15.9, hemoglobin 9.8. Platelets are 233. Her BUN and creatinine are 5 and 0.7. LFTs are normal. Lactic acid was 3, and on repeat this morning was 1.1. Urinalysis is unremarkable. She had a Quintero reinserted last night. SUMMARY: This is a 49-year-old woman with postop fever of unclear etiology. She was well prior to the surgery. She attributes the symptoms to her urinary retention. Sources would be abdominal or urinary, although the UA is negative. She has had multiple instrumentations. She is going for sonogram. Would get CAT of the abdomen and pelvis if sonogram is unrevealing. Cultures are pending. Would continue vancomycin and Zosyn for now. The case was discussed at length with the hospitalist. She is status post lumbar fusion postop day No. 2. NARAYAN CHENG M.D. [id number]
--- NOTE | 2019-07-25 20:16 | EKG ---
Test Reason : Blood Pressure : / mmHG Vent. Rate : 129 BPM Atrial Rate : 129 BPM P-R Int : 154 ms QRS Dur : 070 ms QT Int : 288 ms P-R-T Axes : 047 056 008 degrees QTc Int : 421 ms SINUS TACHYCARDIA OTHERWISE NORMAL ECG NO PREVIOUS ECGS AVAILABLE Confirmed by MD ROXY, ROBBI ([id number]) on 07/25/2019 8:16:15 PM Referred By: Tin Schmitz Confirmed By:ROBBI RAMSEY MD
[2019-07-25] MEDS ORDERED: DOCUSATE SODIUM 100 MG CAPSULE (FP) PO SCH (22:00)
[2019-07-26] MEDS ORDERED: SODIUM CHLORIDE 500 ML IV STA (00:41)
[2019-07-26] MEDS: oxyCODONE HCL 5 MG TABLET PO PRN ×4 (01:00→20:19)
[2019-07-26] MEDS ORDERED: PIPERACILLIN/TAZOBACTAM 4.5 GM VIAL IVPB ONE ×3 (01:14→16:52)
[2019-07-26] MEDS ORDERED: DEXTROSE 5%-WATER 100 ML IVPB ONE ×3 (01:14→16:52)
[2019-07-26] MEDS: PIPERACILLIN/TAZOB 4.5 GM 4.5 GM in DEXTROSE 5%-WATER 100 ML IVPB SCH ×3 (01:38→17:11)
[2019-07-26] MEDS: VANCOMYCIN 1 GRAM (PRE-DOCKED) 1,000 MG/250 ML BAG IVPB SCH (02:21)
[2019-07-26] MEDS: PREGABALIN 100 MG CAPSULE PO SCH ×3 (05:54→22:10)
[2019-07-26] MEDS: HEPARIN NA (PORCINE) 5,000 UNITS/ML 1ML VIAL SQ SCH ×3 (05:55→22:12)
[2019-07-26] MEDS: DOCUSATE SODIUM 100 MG CAPSULE (FP) PO SCH ×3 (05:55→22:11)
[2019-07-26 08:15] LABS: BASO % 0.3 % (0-2.0); BLOOD UREA NITROGEN 5.2 mg/dL (7-18); CALCIUM 8.3 mg/dL (8.5-10.1); CREATININE 0.7 mg/dL (0.55-1.3); EOS % 0.5 % (0-4.5); HEMATOCRIT 27.4 % (32.4-45.2); HEMOGLOBIN 9.1 GM/dL (10.7-15.3); LYMPH % 13.3 % (8-40); MAGNESIUM 1.8 mg/dL (1.8-2.4); MCH 30.7 pg (25.7-33.7); MCHC 33.3 g/dl (32.0-36.0); MEAN CELL VOLUME 92.4 fl (80-96); MEAN PLT VOLUME 10.7 fl (7.5-11.1); MONO % 11.8 % (3.8-10.2); NEUT % 74.1 % (42.8-82.8); PHOSPHOROUS 2.7 mg/dL (2.5-4.9); PLATELET COUNT 225 K/MM3 (134-434); RBC 2.96 M/mm3 (3.60-5.2); RDW 15.3 % (11.6-15.6); WHITE BLOOD COUNT 12.9 K/mm3 (4.0-10.0)
[2019-07-26] MEDS: PANTOPRAZOLE 40 MG TABLET (FP) PO SCH (10:02)
[2019-07-26] MEDS: BACLOFEN 10 MG TABLET (FP) PO SCH ×2 (10:03→22:11)
[2019-07-26] MEDS: FOLIC ACID 1 MG TABLET (FP) PO SCH (10:03)
[2019-07-26] MEDS: oxyCODONE HCL 10 MG SUSTAINED ACTING TABLET PO SCH ×3 (10:03→22:08)
[2019-07-26] MEDS: FLUTICASONE/SALMETEROL 100 MCG/50 MCG DISKUS IH SCH ×2 (10:06→22:11)
[2019-07-26] MEDS ORDERED: LACTATED RINGERS SOLUTION 1,000 ML/1,000 ML INFUS.BAG IV SCH (10:50)
--- NOTE | 2019-07-26 10:58 | PN ---
Progress Note (short form) - Note Progress Note: Subjective: Fevers last night. no MCCULLOUGH. still has Abd pain. has a MCCULLOUGH but no neck rigidity. has pain in R sided neck. no SOB , no cough or sputum production today. has prem pain mail with moving . No diarrhea, had flatus Objective: Vital Signs: Last Vital Signs Temp Pulse Resp BP Pulse Ox 99.9 F H 138 H 20 108/68 100 07/26/19 09:28 07/26/19 09:28 07/26/19 09:28 07/26/19 09:28 07/25/19 21:00 Laboratory Results - last 24 hr 07/26/19 07/26/19 07/26/19 07:27 07:27 08:49 WBC 12.9 H RBC 2.96 L Hgb 9.1 L Hct 27.4 L MCV 92.4 MCH 30.7 MCHC 33.3 RDW 15.3 Plt Count 225 MPV 10.7 Absolute Neuts (auto) 9.6 H Neutrophils % 74.1 Lymphocytes % 13.3 Monocytes % 11.8 H Eosinophils % 0.5 D Basophils % 0.3 Nucleated RBC % 0 Sodium 141 Potassium 4.0 Chloride 106 Carbon Dioxide 28 Anion Gap 7 L BUN 5.2 L Creatinine 0.7 Est GFR (CKD-EPI)AfAm 117.09 Est GFR (CKD-EPI)NonAf 101.02 Random Glucose 104 Lactic Acid 2.5 H* Calcium 8.3 L Phosphorus 2.7 Magnesium 1.8 NAD, awake. CV: RRR, no MRG Lungs: CATB Abd: soft, TTP especially in suprapubic area but also tender in all quadrants. has rebound tenderness in lower quadrants. Ext: no edema or erythema on upper or lower ext Neuro of LE: RLE: hip flexion could not be assessed due to pain , knee flexion 5/5 and knee extension 5/5. ankle dorsiflexion and plantar flexion 5/5 . LLE: hip flexion could not be assessed due to pain, knee flexion 4/5 and knee extension 5/5. ankle dorsiflexion and plantar flexion 5/5 . Sensation to light touch decreased on LLE . Reflexes knee jerk 1+ on L and 2+ on R Skin: L flank with erythema and increased warmth. Area was marked. R flank with erythema but patient was lying on it . lumbar surgical wound with no erythema, surrounding skin slightly hyperpigmented. signs of reaction to old tape around current dressing ASSESSMENT AND PLAN: 49 y/o lady with h/o asthma, GERD, fibroids s/p hysterectomy, and low back pain with previous lower back surgeries who presented for sx. 1- Sepsis: source is still unknown. On exam today L flank skin is erythematous, No discharge form wound. Abdomen is cube machine tender and this is concerning. On my review of the Ct scan , bladder wall is thickened. L flank fat stranding. I don't see free air or collection. will wait for final report. lactic is up again today. - will wait for CT read. trying to reach radiologist - cont Abx. - Increase IVF - follow lactic acid. - avoid lying on back and L flank. d/w Dr. Self. - Us unremarkable - low threshold to transfer to ICU if BP dopps further , OK for tele now. - per dr. Self, she had a L flank access for her sx on 04/21, so maybe the flank Ct changes are due to that 2- h/o Spinal stenosis s/p revision of fusion L3-s1. - pain management oxycontin and oxycodone - PT eval 3- Normocytic anemia: need full w/u as out pt if it does not recover. and maybe heme eval 4- H/o Asthma, cont inhalers 5- DVT px: heparin Dispo: HLOC. Visit type - Emergency Visit Emergency Visit: Yes ED Registration Date: 07/23/19 Care time: The patient presented to the Emergency Department on the above date and was hospitalized for further evaluation of their emergent condition. - New Patient This patient is new to me today: No - Critical Care Critical Care patient: No
[2019-07-26] MEDS: ACETAMINOPHEN 325 MG TABLET (FP) PO PRN (12:18)
--- NOTE | 2019-07-26 15:08 | PN ---
Progress Note (short form) - Note Progress Note: oob in chair continues with suprapubic discomfort alert eating well Vital Signs Period Temp Pulse Resp BP Sys/Mcnamara Pulse Ox Last 24 Hr 99.6 F-101.9 F 130-144 20-20 83-111/49-77 100 cor-rrr llungs clear abd soft, +suprapubic discomfort to palpation incision - no erythema or drainage ext no edema CBC, BMP 07/26/19 07:27 07/26/19 07:27 Microbiology 07/24/19 19:00 Urine - Urine Quintero Urine Culture - Final NO GROWTH OBTAINED 07/24/19 19:30 Blood - Peripheral Venous Blood Culture - Preliminary NO GROWTH OBTAINED AFTER 24 HOURS, INCUBATION TO CONTINUE FOR 4 DAYS. 07/24/19 19:05 Blood - Peripheral Venous Blood Culture - Preliminary NO GROWTH OBTAINED AFTER 24 HOURS, INCUBATION TO CONTINUE FOR [address] scan findings noted a/p postop fever s/p revision of prior lumbar surgery and replacement of hardware 07/23 continued fevers cultures negative awaiting neurosurgery evaluation of ct findings and patient d/w hospitalist who was in contact with the neurosurgeon who is coming in to see the patient check vancomycin level continue vanco/zosyn esr/crp Problem List - Problems (1) Postoperative fever Code(s): R50.82 - POSTPROCEDURAL FEVER (2) S/P lumbar fusion Code(s): Z98.1 - ARTHRODESIS STATUS
[2019-07-26] MEDS ORDERED: PT OWN MED DRAWER 7, Y5N ONE (17:56)
[2019-07-26] MEDS: VANCOMYCIN 1,250 MG in DEXTROSE 5%-WATER - 250 ML IVPB SCH (18:07)
--- NOTE | 2019-07-26 21:38 | PN ---
Progress Note (short form) - Note Progress Note: Patient underwent uneventful revision Lumbar decompression and fusion on July. Postoperative CT demonstrates satisfactory decompression and hardware placement. Patient with almost immediate improvement in lower extremity strength and sensation with reduction in radicular pain. Procedure performed under general anesthesia with Spinal Duramorph and local infiltration of Exparel/Marcaine per protocol. Estimated blood loss was 200cc and surgical time was approximately 2 hours. Patient was able to ambulate the morning following surgery and ARIELLE output was low. ARIELLE drain removed and patient was considering discharge, however, she had difficulty voiding due to residual effects from the Duramorph. On the morning of Saturday, July 25, 2019, patient had a fever and high bladder volume on ultrasound. Urine cultures sent and franks catheter was replaced. Fever came down with time and Tylenol. WBC was 8 on July 24 and then elevated to 17.9 on July 25. This decreased to 15.9 and then 12.9 over the next day. Patient had several episodes of fever and blood cultures were sent. CXR was unremarkable for pneumonia and patient was encouraged to use incentive spirometer. Blood and Urine cultures are negative to date. Patient with episode of hypotension and tachycardia which responded to IV bolus. Infectious Diseases consultation was obtained from Dr. Thomason and is greatly appreciated. CT Abdomen unremarkable for clear intra-abdominal pathology. Dorsal fat with suggestion of streaking but no clear collection. Skin over Left flank developed erythema and tenderness extending from Lateral Transpsoas Approach incision (April 21). The region of skin between the two paramedian incisions (May 01) is at risk due to poor blood supply. Inspection of wound on July 26 shows increased tenderness and fullness between the paramedian incisions. Given the lack of a clear alternate source for the fevers and the potential for sepsis, I discussed the risks,benefits and alternatives to wound exploration with the patient in great detail. I explained the potential role of debridement and irrigation with antibiotics as well as culture of any collection. The patient verbalizes an understanding and asks that I make preparations to do so. Patient had just eaten and I discussed proceeding first thing in the morning to reduce the risk of aspiration. All questions were answered. Informed consent was obtained.
[2019-07-27] MEDS ORDERED: PIPERACILLIN/TAZOBACTAM 4.5 GM VIAL IVPB ONE ×3 (01:09→17:05)
[2019-07-27] MEDS ORDERED: DEXTROSE 5%-WATER 100 ML IVPB ONE ×2 (01:09→17:05)
[2019-07-27] MEDS: PIPERACILLIN/TAZOB 4.5 GM 4.5 GM in DEXTROSE 5%-WATER 100 ML IVPB SCH ×3 (01:14→17:19)
[2019-07-27] MEDS: oxyCODONE HCL 5 MG TABLET PO PRN ×3 (03:41→20:32)
[2019-07-27] MEDS ORDERED: PT OWN MED DRAWER 7, Y5N ONE ×2 (04:56→18:47)
[2019-07-27] MEDS: VANCOMYCIN 1,250 MG in DEXTROSE 5%-WATER - 250 ML IVPB SCH ×2 (04:57→19:41)
[2019-07-27 06:52] LABS: BASO % 0.4 % (0-2.0); EOS % 1.6 % (0-4.5); HEMATOCRIT 24.5 % (32.4-45.2); HEMOGLOBIN 8.5 GM/dL (10.7-15.3); MCH 31.8 pg (25.7-33.7); MCHC 34.7 g/dl (32.0-36.0); MEAN CELL VOLUME 91.5 fl (80-96); MONO % 11.4 % (3.8-10.2); NEUT % 64.6 % (42.8-82.8); PLATELET COUNT 267 K/MM3 (134-434); RBC 2.68 M/mm3 (3.60-5.2); RDW 15.3 % (11.6-15.6); WHITE BLOOD COUNT 9.5 K/mm3 (4.0-10.0)
[2019-07-27] MEDS ORDERED: GENTAMICIN SO4 80 MG/2 ML VIAL ONE (07:19)
[2019-07-27] MEDS ORDERED: VANCOMYCIN 1,000 MG VIAL (RESTRICTED TO ID ONLY) ONE ×2 (07:20→08:56)
[2019-07-27] MEDS ORDERED: BACITRACIN 15 GM TUBE TOPICAL OINTMENT ONE ×2 (07:20→08:34)
[2019-07-27] MEDS ORDERED: LIDOCAINE 1%-EPI 1:100,000 30 ML MDV IJ ONE (07:20)
[2019-07-27 07:26] LABS: BLOOD UREA NITROGEN 5.7 mg/dL (7-18); CALCIUM 8.4 mg/dL (8.5-10.1); CREATININE 0.6 mg/dL (0.55-1.3); PHOSPHOROUS 3.3 mg/dL (2.5-4.9); POTASSIUM 3.7 mmol/L (3.5-5.1)
[2019-07-27] MEDS ORDERED: THROMBIN (BOVINE) 5,000 UNIT VIAL TP ONE (07:33)
[2019-07-27] MEDS ORDERED: fentaNYL CITRATE 250 MCG/5 ML VIAL ONE (08:06)
[2019-07-27] MEDS ORDERED: PROPOFOL 20 ML ONE (08:06)
[2019-07-27] MEDS ORDERED: MIDAZOLAM HCL 2 MG/2 ML SINGLE DOSE VIAL ONE ×2 (08:07)
[2019-07-27] MEDS ORDERED: SUCCINYLCHOLINE CHLORIDE 200 MG/10 ML SYRINGE ONE (08:07)
[2019-07-27] MEDS ORDERED: BACITRACIN 50,000 UNITS VIAL TP ONE ×2 (08:30)
--- NOTE | 2019-07-27 08:35 | PN ---
Teaching Attending Note Name of Resident: Marlin Baez ATTENDING PHYSICIAN STATEMENT I saw and evaluated the patient. I reviewed the resident's note and discussed the case with the resident. I agree with the resident's findings and plan as documented. SUBJECTIVE: Has pain in Lower back. L leg feels stronger today. fever last night at 9 pm. No diarrhea. abd pain in lower abdomen is better today. No SOB or cough OBJECTIVE: NAD. CV: RRR, no MRG Lungs: CATB Abd: soft, TTP in suprapubic area, no rebound tenderness today. soft abdomen Ext: no edema or erythema on upper or lower ext. Neuro of LE: RLE: hip flexion 5/5 , knee flexion 5/5 and knee extension 5/5. ankle dorsiflexion and plantar flexion 5/5 . LLE: hip flexion 4/5, knee flexion 4/5 and knee extension 5/5. ankle dorsiflexion and plantar flexion 5/5 . Sensation to light touch decreased on LLE . Skin: L flank with decreased erythema and warmth. lumbar surgical wound with no erythema, surrounding skin slightly hyperpigmented. tenderness lateral to the lower part of wound on L side ASSESSMENT AND PLAN: 49 y/o lady with h/o asthma, GERD, fibroids s/p hysterectomy, and low back pain with previous lower back surgeries who presented for sx. 1- Sepsis: r/o wound infection. Fever curve improved, leukcoytosis improved, lactic normalized, and skin erythema on L flank improved. - Case was d/w Dr. Self this am. Exploration of the wound with possible I&D this am. will d/w findings after sx - cont increased dose of vanco , and zosyn - repeat Vanco trough tomorrow am before dose - cont IVF - follow CBC - Will start IV pain meds in addition to po after sx - incentive spirometer - follow surgical cx 2- h/o Spinal stenosis s/p revision of fusion L3-s1. - as above 3- Urinary retention: cont franks for now 4- Normocytic anemia: w/u as out pt 5- H/o Asthma, cont inhalers 6- DVT px: hold heparin now, resume after sx Dispo: HLOC.
[2019-07-27] MEDS ORDERED: PIPERACILLIN/TAZOB 4.5 GM 4.5 GM in DEXTROSE 5%-WATER 100 ML IVPB ONE (08:45)
[2019-07-27] MEDS ORDERED: BACITRACIN 15 GM TUBE TOPICAL OINTMENT TP ONE ×2 (08:45→10:45)
[2019-07-27] MEDS ORDERED: DEXAMETHASONE SOD PHOSPHATE 4 MG/1 ML VIAL ONE (08:58)
[2019-07-27] MEDS ORDERED: GENTAMICIN SO4 80 MG/2 ML VIAL IVPB ONE (09:36)
[2019-07-27] MEDS ORDERED: VANCOMYCIN 1,000 MG VIAL (RESTRICTED TO ID ONLY) IVPB ONE ×2 (09:37)
[2019-07-27] MEDS ORDERED: HYDROGEN PEROXIDE 473 ML PO ONE (09:49)
[2019-07-27] MEDS ORDERED: ACETAMINOPHEN 1000 MG/100 ML VIAL (NON FORMULARY) IVPB ONE ×2 (10:09→10:35)
[2019-07-27] MEDS ORDERED: ONDANSETRON 4 MG/2 ML VIAL IVPUSH PRN (10:09)
[2019-07-27] MEDS ORDERED: ACETAMINOPHEN INJECTION 100 ML IVPB ONE (10:11)
--- NOTE | 2019-07-27 10:11 | OP ---
Operative Note - Note: Operative Date: 07/27/19 Pre-Operative Diagnosis: Infected wound site s/p lumbar fusion Operation: Washout infected wound s/p Lumbar fusion Post-Operative Diagnosis: Same as Pre-op Surgeon: Tin Schmitz Pantry Chef: Herminio Way Anesthesiologist/PARTS INTERPRETER: Niall Rojas Anesthesia: General Estimated Blood Loss (mls): 25 Operative Report Dictated: Yes
--- NOTE | 2019-07-27 10:19 | SURG ---
Surgery Supervisor Shipping Note Supervisor Shipping: Herminio Way PA-C Date of Service: 07/27/19 Diagnosis: Infected wound site s/p lumbar fusion Procedure: Washout infected wound s/p Lumbar fusion I was present for the entirety of the operative procedure. For further detail, please refer to operative report. Visit type - Case Type Case Type: Scheduled - Emergency Emergency Visit: No - New patient This patient is new to me today: No - Critical Care Critical Care patient: No
[2019-07-27] MEDS ORDERED: LACTATED RINGERS SOLUTION 1,000 ML/1,000 ML INFUS.BAG IV SCH (10:45)
[2019-07-27] MEDS ORDERED: POLYETHYLENE GLYCOL 3350 119 GM BTL PO PRN (10:45)
[2019-07-27] MEDS ORDERED: diphenhydrAMINE HCL 25 MG CAPSULE (FP) PO PRN (10:45)
[2019-07-27] MEDS ORDERED: ALBUTEROL SO4 0.083% IH SOL 2.5 MG/3 ML VIAL.NEB. NEB PRN (10:45)
[2019-07-27] MEDS ORDERED: HYDROmorphone HCl 2 MG/ML VIAL ONE (11:05)
[2019-07-27] MEDS ORDERED: HYDROmorphone HCL CARPU-JECT 2 MG/1 ML DISP.SYRIN IVPUSH ONE ×2 (11:10→11:25)
[2019-07-27] MEDS: ACETAMINOPHEN 1000 MG/100 ML VIAL (NON FORMULARY) IVPB SCH (12:17)
[2019-07-27] MEDS: PREGABALIN 100 MG CAPSULE PO SCH ×4 (12:18→21:20)
[2019-07-27] MEDS: VANCOMYCIN 1 GRAM (PRE-DOCKED) 1,000 MG/250 ML BAG IVPB SCH (12:19)
[2019-07-27] MEDS: DOCUSATE SODIUM 100 MG CAPSULE (FP) PO SCH ×3 (12:20→21:20)
[2019-07-27] MEDS: HEPARIN NA (PORCINE) 5,000 UNITS/ML 1ML VIAL SQ SCH ×3 (12:20→21:47)
[2019-07-27] MEDS: oxyCODONE HCL 10 MG SUSTAINED ACTING TABLET PO SCH ×2 (12:20→21:22)
[2019-07-27] MEDS: FLUTICASONE/SALMETEROL 100 MCG/50 MCG DISKUS IH SCH ×2 (12:21→21:36)
[2019-07-27] MEDS: BACLOFEN 10 MG TABLET (FP) PO SCH ×2 (12:21→21:20)
[2019-07-27] MEDS: FOLIC ACID 1 MG TABLET (FP) PO SCH (12:21)
[2019-07-27] MEDS: PANTOPRAZOLE 40 MG TABLET (FP) PO SCH (12:21)
[2019-07-27] MEDS: KETOROLAC TROMETHAMINE 30 MG/1 ML VIAL IVPUSH ONE (12:23)
[2019-07-27] MEDS: CEFAZOLIN 1 GM/D5W 1 GM/50 ML BAG IVPB SCH (12:23)
[2019-07-27] MEDS: ACETAMINOPHEN 325 MG TABLET (FP) PO PRN ×2 (14:28→19:45)
--- NOTE | 2019-07-27 14:57 | PN ---
Physical Exam: SUBJECTIVE: Patient seen and examined 49 y/o F w/ PMH of Asthma, GERD, fibroids, hysterectomy, lower back pain w/ 2 prior surgeries to the back, presents s/p L3-L5 laminectomy with hardware removal and replacement, was found to have sepsis. Pt reports left flank and lower back pain. Pt's left flank wound appears improved. Abdominal pain has improved. Left leg weakness has improved. Had mild fever of 100.4 last night which has resolved. Pt was seen by neurosurgery yesterday and taken into surgery today in the am for wound exploration. Wound was washed out and gram stain was negative. Denies chills, n/v, diarrhea, sob, chest pain. OBJECTIVE: Vital Signs Period Temp Pulse Resp BP Sys/Mcnamara Pulse Ox Last 24 Hr 98.0 F-100.4 F 111-130 16-20 97-117/50-80 96-100 GENERAL: The patient is awake, alert, and fully oriented, NAD LUNGS: Breath sounds equal, clear to auscultation bilaterally, no wheezes, no crackles, no accessory muscle use. HEART: Regular rate and rhythm, S1, S2 without murmur, rub or gallop. ABDOMEN: Soft, Tender to palpation in suprapubic region. Nondistended, normoactive bowel sounds, no guarding, no rebound Back: Post op- dressing present. EXTREMITIES: 2+ pulses, warm, well-perfused, no edema. NEUROLOGICAL: UE Strength and Sensation intact 5/5, LE strength and sensation intact 5/5 . CN 1-12 intact Laboratory Results - last 24 hr CBC,CMP WBC 9.5 K/mm3 (4.0-10.0) 07/27/19 06:10 RBC 2.68 M/mm3 (3.60-5.2) L 07/27/19 06:10 Hgb 8.5 GM/dL (10.7-15.3) L 07/27/19 06:10 Hct 24.5 % (32.4-45.2) L 07/27/19 06:10 MCV 91.5 fl (80-96) 07/27/19 06:10 MCH 31.8 pg (25.7-33.7) 07/27/19 06:10 MCHC 34.7 g/dl (32.0-36.0) 07/27/19 06:10 RDW 15.3 % (11.6-15.6) 07/27/19 06:10 Plt Count 267 K/MM3 (134-434) 07/27/19 06:10 MPV 10.0 fl (7.5-11.1) 07/27/19 06:10 Absolute Neuts (auto) 6.2 K/mm3 (1.5-8.0) 07/27/19 06:10 Neutrophils % 64.6 % (42.8-82.8) 07/27/19 06:10 Lymphocytes % 22.0 % (8-40) D 07/27/19 06:10 Monocytes % 11.4 % (3.8-10.2) H 07/27/19 06:10 Eosinophils % 1.6 % (0-4.5) D 07/27/19 06:10 Basophils % 0.4 % (0-2.0) 07/27/19 06:10 Nucleated RBC % 0 % (0-0) 07/27/19 06:10 ESR 102 mm/hr (0-30) H 07/27/19 06:10 Sodium 139 mmol/L (136-145) 07/27/19 06:10 Potassium 3.7 mmol/L (3.5-5.1) 07/27/19 06:10 Chloride 104 mmol/L (98-107) 07/27/19 06:10 Carbon Dioxide 27 mmol/L (21-32) 07/27/19 06:10 Anion Gap 7 MMOL/L (8-16) L 07/27/19 06:10 BUN 5.7 mg/dL (7-18) L 07/27/19 06:10 Creatinine 0.6 mg/dL (0.55-1.3) 07/27/19 06:10 Est GFR (CKD-EPI)AfAm 123.18 07/27/19 06:10 Est GFR (CKD-EPI)NonAf 106.28 07/27/19 06:10 Random Glucose 104 mg/dL (74-106) 07/27/19 06:10 Lactic Acid 1.3 mmol/L (0.4-2.0) 07/27/19 06:10 Calcium 8.4 mg/dL (8.5-10.1) L 07/27/19 06:10 Phosphorus 3.3 mg/dL (2.5-4.9) 07/27/19 06:10 Magnesium 1.8 mg/dL (1.8-2.4) 07/26/19 07:27 Total Bilirubin 0.3 mg/dL (0.2-1) 07/25/19 05:52 Direct Bilirubin 0.1 mg/dL (0.0-0.2) 07/25/19 00:00 AST 28 U/L (15-37) 07/25/19 05:52 ALT 25 U/L (13-61) 07/25/19 05:52 Alkaline Phosphatase 78 U/L (45-117) 07/25/19 05:52 LD Total 133 U/L (84-246) 07/25/19 05:52 Troponin I < 0.02 ng/ml (0.00-0.05) 07/25/19 05:52 C-Reactive Protein 27.3 MG/DL (0.00-0.3) H 07/27/19 06:10 Total Protein 5.6 g/dl (6.4-8.2) L 07/25/19 05:52 Albumin 2.6 g/dl (3.4-5.0) L 07/25/19 05:52 Active Medications Generic Name Dose Route Start Last Admin Trade Name Salvatoreq PRN Reason Stop Dose Admin Acetaminophen 650 mg 07/27/19 10:45 07/27/19 14:28 Tylenol - PO 650 mg Q6H PRN Administration FEVER Albuterol Sulfate 1 amp 07/27/19 10:45 07/27/19 12:44 Ventolin 0.083% Nebulizer Soln - NEB 1 amp Q4H PRN Administration SHORT OF BREATH/WHEEZING Baclofen 5 mg 07/27/19 22:00 Lioresal - PO BID NEFTALY Diphenhydramine HCl 25 mg 07/27/19 10:45 Benadryl - PO Q6H PRN FOR ITCHING Docusate Sodium 100 mg 07/27/19 14:00 07/27/19 14:26 Colace - PO 100 mg TID NEFTALY Administration Folic Acid 1 mg 07/28/19 10:00 Folic Acid - PO DAILY NEFTALY Heparin Sodium (Porcine) 5,000 unit 07/27/19 14:00 07/27/19 14:17 Heparin - SQ Not Given Q8H NEFTALY Lactated Ringer's 1,000 ml in 1,000 mls @ 100 mls/hr 07/27/19 10:45 07/27/19 12:39 Lactated Ringers Solution IV 100 mls/hr ASDIR NEFTALY Administration Piperacillin Sod/Tazobactam 100 mls @ 200 mls/hr 07/27/19 18:00 Sod 4.5 gm/ Dextrose IVPB Q8H-IV NEFTALY Protocol Vancomycin HCl 1,250 mg/ 250 mls @ 166.667 mls/hr 07/27/19 16:15 Dextrose IVPB Q12H NEFTALY Protocol Oxycodone HCl 10 mg 07/27/19 10:45 07/27/19 12:39 Roxicodone - PO 10 mg Q3H PRN Administration Moderate Pain 4-6 Oxycodone HCl 10 mg 07/27/19 22:00 Oxycontin - PO BID NEFTALY Pantoprazole Sodium 40 mg 07/28/19 10:00 Protonix - PO DAILY NEFTALY Polyethylene Glycol 17 gm 07/27/19 10:45 Miralax (For Daily Use) - PO DAILY PRN CONSTIPATION Pregabalin 300 mg 07/27/19 14:00 07/27/19 14:25 Lyrica - PO 300 mg TID NEFTALY Administration Fluticasone/Salmeterol 1 puff 07/27/19 22:00 Advair 100mcg/50mcg - IH BID [facility] ASSESSMENT/PLAN: 49 y/o F w/ PMH of lower back pain w/ 2 prior surgeries to the back, presents s/ p L3-L5 laminectomy with hardware removal and replacement, was found to have sepsis 2/2 to wound infxn #Sepsis 2/[address] abd shows abnormal changes in soft tissue, post op lumbar spine changes Lactic acid normalized Continue Abx- vanco, zosyn Avoid lying on back or left flank as per neurosurgery r/p Vanc trough in the am BCx pending Pt evaluated post op- c/o of back pain but otherwise no symptoms Surgical site dressed well and no signs of bleeding, drainage or erythema #Back pain 2/2 to spinal stenosis Pain management w/ oxycontin and oxycodone Consulted PT #Urinary Retention likely 2/2 to post op Quintero placed Will consider removing in the am #Normocytic anemia monitor h/h will consider heme consult if h/h worsens #Asthma Cont inhaler #DVT ppx Heparin sq #FEN LR Regular diet Dispo: continue abx, f/u w/ PT, pain management , monitor H/H Visit type - Emergency Visit Emergency Visit: Yes ED Registration Date: 07/23/19 Care time: The patient presented to the Emergency Department on the above date and was hospitalized for further evaluation of their emergent condition. - New Patient This patient is new to me today: Yes Date on this admission: 07/31/19 - Critical Care Critical Care patient: No - Discharge Referral Referred to [facility] Med P.C.: No ATTENDING PHYSICIAN STATEMENT I saw and evaluated the patient. I reviewed the resident's note and discussed the case with the resident. I agree with the resident's findings and plan as documented. SUBJECTIVE: OBJECTIVE: ASSESSMENT AND PLAN:
--- NOTE | 2019-07-27 16:22 | PN ---
Progress Note (short form) - Note Progress Note: seen postop in her room s/p operative washout of the wound no eleazar purulence noted Vital Signs Period Temp Pulse Resp BP Sys/Mcnamara Pulse Ox Last 24 Hr 98.0 F-100.4 F 111-130 16-20 97-117/50-80 96-100 cor-rrr lungs clear abd soft,nt +franks no erythema of the flanks dressing with drain not examined (postop) CBC, BMP 07/27/19 06:10 07/27/19 06:10 Microbiology 07/27/19 08:55 Body Fluid - Other Gram Stain - Final 07/27/19 08:55 Back Gram Stain - Final 07/27/19 08:58 Wound Gram Stain - Final 07/24/19 19:30 Blood - Peripheral Venous Blood Culture - Preliminary NO GROWTH OBTAINED AFTER 48 HOURS, INCUBATION TO CONTINUE FOR 3 DAYS. 07/24/19 19:05 Blood - Peripheral Venous Blood Culture - Preliminary NO GROWTH OBTAINED AFTER 48 HOURS, INCUBATION TO CONTINUE FOR 3 DAYS. 07/24/19 19:00 Urine - Urine Franks Urine Culture - Final NO GROWTH OBTAINED Laboratory Tests 07/27/19 07/27/19 06:10 06:10 ESR 102 H C-Reactive Protein 27.3 H a/p postop fever-s/p operative washout today 07/27 inflammatory markers noted gram stain with PMNS s/p revision of prior lumbar surgery and replacement of hardware 07/23 continue vancomycin and zosyn vanco trough before 4th dose d/w hospitalist d/w surgeon d/w family and patient Problem List - Problems (1) Postoperative fever Code(s): R50.82 - POSTPROCEDURAL FEVER (2) S/P lumbar fusion Code(s): Z98.1 - ARTHRODESIS STATUS
[2019-07-28] MEDS ORDERED: PIPERACILLIN/TAZOBACTAM 4.5 GM VIAL IVPB ONE ×3 (01:09→17:04)
[2019-07-28] MEDS ORDERED: DEXTROSE 5%-WATER 100 ML IVPB ONE ×3 (01:09→17:04)
[2019-07-28] MEDS: PIPERACILLIN/TAZOB 4.5 GM 4.5 GM in DEXTROSE 5%-WATER 100 ML IVPB SCH ×3 (01:45→17:14)
[2019-07-28] MEDS ORDERED: PT OWN MED DRAWER 7, Y5N ONE ×2 (02:15→17:36)
[2019-07-28] MEDS: VANCOMYCIN 1,250 MG in DEXTROSE 5%-WATER - 250 ML IVPB SCH ×2 (04:36→17:45)
[2019-07-28] MEDS: oxyCODONE HCL 5 MG TABLET PO PRN ×3 (04:54→16:22)
[2019-07-28] MEDS: HEPARIN NA (PORCINE) 5,000 UNITS/ML 1ML VIAL SQ SCH ×3 (05:20→21:01)
[2019-07-28] MEDS: DOCUSATE SODIUM 100 MG CAPSULE (FP) PO SCH ×3 (05:20→21:01)
[2019-07-28] MEDS: PREGABALIN 100 MG CAPSULE PO SCH ×3 (05:20→21:03)
[2019-07-28 09:02] LABS: BASO % 0.4 % (0-2.0); EOS % 0.5 % (0-4.5); HEMATOCRIT 27.9 % (32.4-45.2); HEMOGLOBIN 9.1 GM/dL (10.7-15.3); LYMPH % 19.8 % (8-40); MCH 30.2 pg (25.7-33.7); MCHC 32.8 g/dl (32.0-36.0); MEAN CELL VOLUME 92.2 fl (80-96); MEAN PLT VOLUME 10.3 fl (7.5-11.1); MONO % 9.1 % (3.8-10.2); NEUT % 70.2 % (42.8-82.8); PLATELET COUNT 355 K/MM3 (134-434); RBC 3.03 M/mm3 (3.60-5.2); RDW 15.5 % (11.6-15.6)
--- NOTE | 2019-07-28 09:21 | PN ---
Progress Note (short form) - Note Progress Note: Surgery POD #5 revision of lumbar fusion L3-S1 with decompression and revision, now POD #1 exploration of wound with wash out. Patient seen and examined at bedside with no complaints. She states her pain is controlled. She has been tolerating her diet and OOB with assist and walker. She denies any CP, SOB, N/V, fever or chills. Vital Signs Temp 98.1 F 10 08:39 Pulse 118 H 07/28/19 08:39 Resp 20 07/28/19 08:39 BP 112/65 07/28/19 08:39 Pulse Ox 97 07/27/19 21:00 Intake & Output 07/27/19 07/27/19 07/28/19 11:59 23:59 11:59 Intake Total 2800 350 850 Output Total 1365 1750 1530 Balance 1435 -1400 -680 Intake: IV 2200 300 500 LACTATED RINGERS SOLUTION 1200 1,000 ml In 1,000 ml @ 100 mls/hr IV ASDIR NEFTALY Rx#:[id number] LACTATED RINGERS SOLUTION 300 500 1,000 ml In 1,000 ml @ 100 mls/hr IV ASDIR NEFTALY Rx#:[id number] IVPB 350 50 350 Oral 250 Output: Drainage 60 50 30 Right Lower Back 50 30 Urine 1300 1700 1500 Franks 1700 1500 Estimated Blood Loss 5 Other: Voiding Method Indwelling Catheter Indwelling Catheter Bowel Movement No Yes No # Bowel Movements 1 Weight Measurement Method Standing Scale CBC, BMP 07/28/19 08:35 PE: A&Ox3, NAD Unlabored resp on RA Lumbar spine: dressing c/d/i with surrounding tissue intact with no erythema, edema or evidence of collection or d/c. Drain secure at right lumbar paravetebral area with SS d/c B/L LE compartments soft, supple and non-tender with 5/5 dorsi/plantar flexion and +2 DP pulses Problem List - Problems (1) S/P lumbar fusion Assessment/Plan: POD #5 multilumbar decompression/fusion and revision, POD#1 wound exploration and wash out, Patient doing well. -Regular diet -d/c franks -OOB with TLSO brace as tolerated -DVT prophylaxis -Encourage IS -ID recs appreciated Evaluation and plan discussed with Dr Schmitz Code(s): Z98.1 - ARTHRODESIS STATUS
[2019-07-28 09:42] LABS: ALBUMIN 2.5 g/dl (3.4-5.0); BILIRUBIN,TOTAL 0.3 mg/dL (0.2-1); BLOOD UREA NITROGEN 4.9 mg/dL (7-18); CALCIUM 8.9 mg/dL (8.5-10.1); CREATININE 0.6 mg/dL (0.55-1.3); POTASSIUM 3.8 mmol/L (3.5-5.1); TOT PROT 6.2 g/dl (6.4-8.2)
[2019-07-28] MEDS: FLUTICASONE/SALMETEROL 100 MCG/50 MCG DISKUS IH SCH ×2 (09:44→21:12)
[2019-07-28] MEDS: BACLOFEN 10 MG TABLET (FP) PO SCH ×2 (09:44→21:03)
[2019-07-28] MEDS: oxyCODONE HCL 10 MG SUSTAINED ACTING TABLET PO SCH ×2 (09:45→21:02)
[2019-07-28] MEDS: FOLIC ACID 1 MG TABLET (FP) PO SCH (09:46)
[2019-07-28] MEDS: PANTOPRAZOLE 40 MG TABLET (FP) PO SCH (09:46)
[2019-07-28] MEDS ORDERED: BENZOCAINE/MENTH/CETYLPYRD CL 1 EACH LOZENGE MM PRN (12:00)
--- NOTE | 2019-07-28 14:53 | PN ---
Progress Note (short form) - Note Progress Note: no fevers, feels improved seen postop in her room s/p operative washout of the wound Vital Signs Period Temp Pulse Resp BP Sys/Mcnamara Pulse Ox Last 24 Hr 98.1 F-98.4 F 116-124 18-20 112-127/60-68 97 cor-rrr lungs clear abd soft,nt ext no edema still with drain CBC, BMP 07/28/19 08:35 07/28/19 08:35 Laboratory Tests 07/27/19 07/27/19 06:10 06:10 ESR 102 H C-Reactive Protein 27.3 H Microbiology 07/27/19 08:55 Back Gram Stain - Final 07/27/19 08:55 Back Wound Culture - Preliminary NO GROWTH OBTAINED AFTER 24 HOURS INCUBATION, REINCUBATED. 07/27/19 08:55 Body Fluid - Other Gram Stain - Final 07/27/19 08:55 Body Fluid - Other Body Fluid Culture - Preliminary NO AEROBIC GROWTH, 24 HRS 07/24/19 19:05 Blood - Peripheral Venous Blood Culture - Preliminary NO GROWTH OBTAINED AFTER 72 HOURS, INCUBATION TO CONTINUE FOR 2 DAYS. 07/24/19 19:30 Blood - Peripheral Venous Blood Culture - Preliminary NO GROWTH OBTAINED AFTER 72 HOURS, INCUBATION TO CONTINUE FOR 2 DAYS. 07/27/19 08:58 Wound Gram Stain - Final 07/24/19 19:00 Urine - Urine Quintero Urine Culture - Final NO GROWTH OBTAINED a/p postop fever-s/p operative washout 07/27- inflammatory markers noted gram stain with PMNS, cultures pending vancomycin trough today s/p revision of prior lumbar surgery and replacement of hardware 07/23 continue vancomycin and zosyn vanco trough before 4th dose d/w patient and family at bedside Problem List - Problems (1) Postoperative fever Code(s): R50.82 - POSTPROCEDURAL FEVER (2) S/P lumbar fusion Code(s): Z98.1 - ARTHRODESIS STATUS
--- NOTE | 2019-07-28 17:11 | PN ---
Teaching Attending Note Name of Resident: Marlin Baez ATTENDING PHYSICIAN STATEMENT I saw and evaluated the patient. I reviewed the resident's note and discussed the case with the resident. I agree with the resident's findings and plan as documented. SUBJECTIVE: No fever or chills . no MCCULLOUGH . back pain is tolerated . OBJECTIVE: NAD. CV: RRR, no MRG Lungs: CATB Abd: soft, TTP in suprapubic area, no rebound tenderness today. soft abdomen Ext: no edema or erythema on upper or lower ext. Neuro of LE: RLE: hip flexion 5/5 , knee flexion 5/5 and knee extension 5/5. ankle dorsiflexion and plantar flexion 5/5 . LLE: hip flexion 4/5, knee flexion 5/5 and knee extension 5/5. ankle dorsiflexion and plantar flexion 5/5 . Sensation to light touch decreased on LLE . lumbar surgical wound with a surgical dressing and a ARIELLE drain with sanguinous fluid ASSESSMENT AND PLAN: 49 y/o lady with h/o asthma, GERD, fibroids s/p hysterectomy, and low back pain with previous lower back surgeries who presented for sx. 1- Sepsis: Due to surgical wound infection .Improved . s/p I&D of wound - cont vanco and zosyn. - trough at 4:30 this afternoon , results are pending . - cont IVF - cont increased dose of vanco , and zosyn - repeat Vanco trough tomorrow am before dose - cont IVF for 12 more hours then stop - follow CBC - cont po pain meds - incentive spirometer - follow surgical cx 2- h/o Spinal stenosis s/p revision of fusion L3-s1 on 07/23, then I&D of wound on 07/27. -pain meds . - franks out today 3- Urinary retention: voiding trial today 4- Normocytic anemia: w/u as out pt 5- H/o Asthma, cont inhalers 6- DVT px: heparin sq Dispo: HLOC. ASSESSMENT AND PLAN:
[2019-07-28] MEDS: ACETAMINOPHEN 325 MG TABLET (FP) PO PRN (17:29)
--- NOTE | 2019-07-28 17:31 | PATH ---
Surgical Pathology Report Patient Name: FIDEL CALVIN Med. Rec. #: [id number] /Age/Gender: 1970 (Age: 49) / F Account: [id number] Location: [facility] MED/SURG Taken: 07/27/2019 Received: 07/27/2019 Reported: 07/28/2019 Physicians: Tin Self M.D. Specimen(s) Received DEBRIDEMENT TISSUE Clinical History Lumbar stenosis and instability, infection at operation site Final Diagnosis LUMBAR WOUND EDGE, EXCISION; PORTION OF SKIN AND SUBCUTANEOUS TISSUE SHOWING CHRONIC INFLAMMATION IN THE EPIDERMIS AND DERMIS, ACUTE AND CHRONIC INFLAMMATION AND FOCAL FAT NECROSIS IN THE SUBCUTANEOUS ADIPOSE TISSUE. Electronically Signed Morgan Murray M.D. Gross Description Received in formalin labeled "lumbar wound edge," is a 2.9 x 0.3 cm dee, elliptical, unoriented portion of skin excised to a depth of 1.3 cm. Tube Dispatcher sections are submitted in one cassette. /07/27/2019 saudi07/27/2019
--- NOTE | 2019-07-28 17:56 | PN ---
Physical Exam: SUBJECTIVE: Patient seen and examined 49 y/o F w/ PMH of Asthma, GERD, fibroids, hysterectomy, lower back pain w/ 2 prior surgeries to the back, presents s/p L3-L5 laminectomy with hardware removal and replacement, was found to have sepsis. Pt reports left flank and lower back pain. Pt's left flank wound appears improved. Abdominal pain has improved but is still persistent. Left leg weakness and numbness is still present. Denies chills, n/v, diarrhea, sob, chest pain. OBJECTIVE: Vital Signs Period Temp Pulse Resp BP Sys/Mcnamara Pulse Ox Last 24 Hr 98.1 F-98.9 F 86-124 18-20 112-127/60-72 97 GENERAL: The patient is awake, alert, and fully oriented, in no acute distress. EYES: PERRL, extraocular movements intact, ENT: oropharynx clear without exudates, moist mucous membranes. NECK: supple, No LAD, No carotid bruit LUNGS: Breath sounds equal, clear to auscultation bilaterally, no wheezes, no crackles, HEART: Regular rate and rhythm, S1, S2 without murmur, rub or gallop. ABDOMEN: Tender to deep palpation in lower abdomen. Soft, nondistended, normoactive bowel sounds, no guarding, no rebound, EXTREMITIES: 2+ pulses, NEUROLOGICAL: Cranial nerves II through XII grossly intact. Strength 4/5 on right LE, 3/5 on left LE, sensation intact UE and LE b/l, Hip flexion intact b/ l LE, reflexes hyperactive on the right knee, left knee reflex intact SKIN: Warm, dry, normal turgor, Laboratory Results - last 24 hr 07/27/19 07/28/19 07/28/19 15:40 08:35 08:35 WBC 12.0 H RBC 3.03 L Hgb 9.1 L Hct 27.9 L MCV 92.2 MCH 30.2 MCHC 32.8 RDW 15.5 Plt Count 355 D MPV 10.3 Absolute Neuts (auto) 8.4 H Neutrophils % 70.2 Lymphocytes % 19.8 Monocytes % 9.1 Eosinophils % 0.5 Basophils % 0.4 Nucleated RBC % 0 Sodium 140 Potassium 3.8 Chloride 106 Carbon Dioxide 27 Anion Gap 7 L BUN 4.9 L Creatinine 0.6 Est GFR (CKD-EPI)AfAm 123.18 Est GFR (CKD-EPI)NonAf 106.28 Random Glucose 83 Calcium 8.9 Total Bilirubin 0.3 AST 21 ALT 39 Alkaline Phosphatase 113 Total Protein 6.2 L Albumin 2.5 L Vancomycin Pre-Dose 8.4 L Active Medications Generic Name Dose Route Start Last Admin Trade Name Freq PRN Reason Stop Dose Admin Acetaminophen 650 mg 07/27/19 10:45 07/28/19 17:29 Tylenol - PO 650 mg Q6H PRN Administration FEVER Albuterol Sulfate 1 amp 07/27/19 10:45 07/27/19 12:44 Ventolin 0.083% Nebulizer Soln - NEB 1 amp Q4H PRN Administration SHORT OF BREATH/WHEEZING Baclofen 5 mg 07/27/19 22:00 07/28/19 09:44 Lioresal - PO 5 mg BID NEFTALY Administration Benzocaine/Menthol 1 each 07/28/19 12:00 07/28/19 12:54 Cepacol Lozenge - MM 1 each PRN PRN Administration SORE THROAT Diphenhydramine HCl 25 mg 07/27/19 10:45 Benadryl - PO Q6H PRN FOR ITCHING Docusate Sodium 100 mg 07/27/19 14:00 07/28/19 14:02 Colace - PO 100 mg TID NEFTALY Administration Folic Acid 1 mg 07/28/19 10:00 07/28/19 09:46 Folic Acid - PO 1 mg DAILY NEFTALY Administration Heparin Sodium (Porcine) 5,000 unit 07/27/19 14:00 07/28/19 14:02 Heparin - SQ 5,000 unit Q8H NEFTALY Administration Piperacillin Sod/Tazobactam 100 mls @ 200 mls/hr 07/27/19 18:00 07/28/19 17: 14 Sod 4.5 gm/ Dextrose IVPB 200 mls/hr Q8H-IV NEFTALY Administration Protocol Vancomycin HCl 1,250 mg/ 250 mls @ 166.667 mls/hr 07/27/19 16:15 07/28/19 17: 45 Dextrose IVPB 166.667 mls/hr Q12H NEFTALY Administration Protocol Oxycodone HCl 10 mg 07/27/19 10:45 07/28/19 16:22 Roxicodone - PO 10 mg Q3H PRN Administration Moderate Pain 4-6 Oxycodone HCl 10 mg 07/27/19 22:00 07/28/19 09:45 Oxycontin - PO 10 mg BID NEFTALY Administration Pantoprazole Sodium 40 mg 07/28/19 10:00 07/28/19 09:46 Protonix - PO 40 mg DAILY NEFTALY Administration Polyethylene Glycol 17 gm 07/27/19 10:45 Miralax (For Daily Use) - PO DAILY PRN CONSTIPATION Pregabalin 300 mg 07/27/19 14:00 07/28/19 14:02 Lyrica - PO 300 mg TID NEFTALY Administration Fluticasone/Salmeterol 1 puff 07/27/19 22:00 07/28/19 09:44 Advair 100mcg/50mcg - IH 1 puff BID NEFTALY Administration ASSESSMENT/PLAN: 49 y/o F w/ PMH of lower back pain w/ 2 prior surgeries to the back, presents s/ p L3-L5 laminectomy with hardware removal and replacement, was found to have sepsis 2/2 to wound infxn #Sepsis 2/2 to wound infxn Continue Abx- vanco, zosyn Avoid lying on back or left flank as per neurosurgery r/p Vanc trough 4 30 pm today - f/u results BCx pending Pt evaluated post op- c/o of back pain but otherwise no symptoms Surgical site dressed well and no signs of bleeding, drainage or erythema #Back pain 2/2 to spinal stenosis Pain management w/ oxycontin and oxycodone Consulted PT #Urinary Retention likely 2/2 to post op Quintero placed Will consider removing in the am #Normocytic anemia monitor h/h #Asthma Cont inhaler #DVT ppx Heparin sq #FEN Regular diet Dispo: continue abx, pain management , monitor H/H Visit type - Emergency Visit Emergency Visit: Yes ED Registration Date: 07/23/19 Care time: The patient presented to the Emergency Department on the above date and was hospitalized for further evaluation of their emergent condition. - New Patient This patient is new to me today: Yes Date on this admission: 07/28/19 - Critical Care Critical Care patient: No - Discharge Referral Referred to [facility] Med P.C.: No ATTENDING PHYSICIAN STATEMENT I saw and evaluated the patient. I reviewed the resident's note and discussed the case with the resident. I agree with the resident's findings and plan as documented. SUBJECTIVE: OBJECTIVE: ASSESSMENT AND PLAN:
[2019-07-29] MEDS ORDERED: DEXTROSE 5%-WATER 100 ML IVPB ONE ×2 (01:53→09:44)
[2019-07-29] MEDS ORDERED: PIPERACILLIN/TAZOBACTAM 4.5 GM VIAL IVPB ONE ×2 (01:53→09:44)
[2019-07-29] MEDS: PIPERACILLIN/TAZOB 4.5 GM 4.5 GM in DEXTROSE 5%-WATER 100 ML IVPB SCH ×2 (02:02→09:51)
[2019-07-29] MEDS: oxyCODONE HCL 5 MG TABLET PO PRN ×4 (02:17→19:44)
[2019-07-29] MEDS: VANCOMYCIN 1,250 MG in DEXTROSE 5%-WATER - 250 ML IVPB SCH ×2 (04:30→16:13)
[2019-07-29] MEDS ORDERED: PT OWN MED DRAWER 7, Y5N ONE ×4 (04:43→21:31)
[2019-07-29] MEDS: DOCUSATE SODIUM 100 MG CAPSULE (FP) PO SCH ×3 (05:50→21:49)
[2019-07-29] MEDS: PREGABALIN 100 MG CAPSULE PO SCH ×3 (05:50→21:47)
[2019-07-29] MEDS: HEPARIN NA (PORCINE) 5,000 UNITS/ML 1ML VIAL SQ SCH ×3 (05:53→21:49)
[2019-07-29 07:45] LABS: BASO % 1.2 % (0-2.0); EOS % 1.8 % (0-4.5); HEMATOCRIT 24.9 % (32.4-45.2); HEMOGLOBIN 8.4 GM/dL (10.7-15.3); LYMPH % 45.4 % (8-40); MCH 30.9 pg (25.7-33.7); MCHC 33.8 g/dl (32.0-36.0); MEAN CELL VOLUME 91.4 fl (80-96); MEAN PLT VOLUME 9.3 fl (7.5-11.1); MONO % 11.5 % (3.8-10.2); NEUT % 40.1 % (42.8-82.8); PLATELET COUNT 403 K/MM3 (134-434); RBC 2.73 M/mm3 (3.60-5.2); RDW 15.4 % (11.6-15.6)
[2019-07-29 08:12] LABS: ALBUMIN 2.4 g/dl (3.4-5.0); BILIRUBIN,TOTAL 0.3 mg/dL (0.2-1); BLOOD UREA NITROGEN 6.9 mg/dL (7-18); CALCIUM 8.9 mg/dL (8.5-10.1); CREATININE 0.7 mg/dL (0.55-1.3); TOT PROT 5.9 g/dl (6.4-8.2)
--- NOTE | 2019-07-29 08:27 | PN ---
Progress Note (short form) - Note Progress Note: Surgery POD #6 revision of lumbar fusion L3-S1 with decompression and revision, now POD #2 exploration of wound with wash out. Patient seen and examined at bedside with no complaints. Quintero removed yesterday and she is voiding with minimal residual on post void bladder scan. She states her pain is controlled. She has been tolerating her diet and OOB with assist and walker. She denies any CP, SOB, N/V, fever or chills. Vital Signs Temp 98.5 F 07/29/19 06:00 Pulse 104 H 07/29/19 06:00 Resp 20 07/29/19 06:00 BP 127/77 07/29/19 06:00 Pulse Ox 97 07/27/19 21:00 Intake & Output 07/28/19 07/28/19 07/29/19 11:59 23:59 11:59 Intake Total 885 401 1890 Output Total 1530 690 Balance -680 -390 1350 Intake: IV 500 1000 LACTATED RINGERS SOLUTION 500 1,000 ml In 1,000 ml @ 100 mls/hr IV ASDIR NEFTALY Rx#:[id number] SL 1000 IVPB 350 100 350 Oral 200 Output: Drainage 30 90 Right Lower Back 30 90 Urine 1500 600 Quintero 1500 Void 600 Other: Voiding Method Indwelling Catheter Toilet # Unmeasured Voids Void 1 2 Bowel Movement No No Weight Measurement Method Standing Scale CBC, BMP 07/29/19 06:50 PE: A&Ox3, NAD Unlabored resp on RA Lumbar spine: incision c/d/i with surrounding tissue intact with no erythema, edema or evidence of collection or d/c. Drain secure at right lumbar paravetebral area with SS d/c B/L LE compartments soft, supple and non-tender with 5/5 dorsi/plantar flexion and +2 DP pulses Problem List - Problems (1) S/P lumbar fusion Assessment/Plan: POD #6 multilumbar decompression/fusion and revision, POD#2 wound exploration and wash out, Patient doing well. Patient will need mcc antibiotics. Working with ID to put together outpatient antibiotics management and possible PICC line with ID. -Regular diet -post void bladder scan this morning -OOB with TLSO brace as tolerated -DVT prophylaxis -Encourage IS -ID recs appreciated Evaluation and plan discussed with Dr Schmitz Code(s): Z98.1 - ARTHRODESIS STATUS
[2019-07-29] MEDS: BACLOFEN 10 MG TABLET (FP) PO SCH ×2 (09:49→21:50)
[2019-07-29] MEDS: PANTOPRAZOLE 40 MG TABLET (FP) PO SCH (09:50)
[2019-07-29] MEDS: FOLIC ACID 1 MG TABLET (FP) PO SCH (09:50)
[2019-07-29] MEDS: oxyCODONE HCL 10 MG SUSTAINED ACTING TABLET PO SCH ×2 (09:51→21:48)
[2019-07-29] MEDS: FLUTICASONE/SALMETEROL 100 MCG/50 MCG DISKUS IH SCH ×2 (09:53→21:49)
--- NOTE | 2019-07-29 16:03 | PN ---
Progress Note (short form) - Note Progress Note: no fevers, feels improved franks out she is able to void Vital Signs Period Temp Pulse Resp BP Sys/Mcnamara Pulse Ox Last 24 Hr 97.8 F-99.0 F 104-116 20-20 97-127/59-79 cor-rrr llungs clear abd soft,nt ext-no edema dressing intact +naresh drainage CBC, BMP 07/29/19 06:50 07/29/19 06:50 Laboratory Tests 07/27/19 07/27/19 07/28/19 06:10 06:10 15:45 ESR 102 H C-Reactive Protein 27.3 H Vancomycin Pre-Dose 13.9 L 07/29/19 06:50 ESR C-Reactive Protein 12.2 H Vancomycin Pre-Dose Microbiology 07/27/19 08:55 Body Fluid - Other Gram Stain - Final 07/27/19 08:55 Body Fluid - Other Body Fluid Culture - Preliminary NO AEROBIC GROWTH, 24 HRS 07/27/19 08:55 Body Fluid - Other Anaerobic Culture - Preliminary No growth. 07/27/19 08:55 Back Gram Stain - Final 07/27/19 08:55 Back Wound Culture - Preliminary No growth. 07/24/19 19:05 Blood - Peripheral Venous Blood Culture - Preliminary NO GROWTH OBTAINED AFTER 96 HOURS, INCUBATION TO CONTINUE FOR 1 DAYS. 07/24/19 19:30 Blood - Peripheral Venous Blood Culture - Preliminary NO GROWTH OBTAINED AFTER 96 HOURS, INCUBATION TO CONTINUE FOR 1 DAYS. 07/27/19 08:58 Wound Gram Stain - Final 07/24/19 19:00 Urine - Urine Franks Urine Culture - Final NO GROWTH OBTAINED a/p postop fever-s/p operative washout 07/27- inflammatory markers noted gram stain with PMNS, cultures negative to date plan at this time is for 6 weeks vanco/cefepime (empiric-given fever, elevated inflammatory markers, +PMNs on gram stain) d/w patient d/w surgery d/w automatic data processing planner s/p revision of prior lumbar surgery and replacement of hardware 07/23 Problem List - Problems (1) Postoperative fever Code(s): R50.82 - POSTPROCEDURAL FEVER (2) S/P lumbar fusion Code(s): Z98.1 - ARTHRODESIS STATUS
--- NOTE | 2019-07-29 16:55 | PN ---
Physical Exam: SUBJECTIVE: Patient seen and examined 49 y/o F w/ PMH of Asthma, GERD, fibroids, hysterectomy, lower back pain w/ 2 prior surgeries to the back, presents s/p L3-L5 laminectomy with hardware removal and replacement, was found to have sepsis. As per pt, left flank and lower back pain have improved significantly. Pt feels much better. Pt is able to void and move bowels. No over night events. Afebrile and asymptomatic. Abdominal pain has improved significantly but is still persistent. Left leg weakness and numbness is still present but is chronic. Denies chills, n/v, diarrhea, sob, chest pain, headaches, tingling, melena. OBJECTIVE: Vital Signs Period Temp Pulse Resp BP Sys/Mcnamara Pulse Ox Last 24 Hr 97.8 F-99.0 F 104-116 20-20 97-127/59-79 GENERAL: The patient is awake, alert, and fully oriented, in no acute distress. EYES: PERRL, extraocular movements intact, ENT: oropharynx clear without exudates, moist mucous membranes. NECK: supple, No LAD, No carotid bruit LUNGS: Breath sounds equal, clear to auscultation bilaterally, no wheezes, no crackles, HEART: Regular rate and rhythm, S1, S2 without murmur, rub or gallop. ABDOMEN: Tender to deep palpation in lower abdomen. Soft, nondistended, normoactive bowel sounds, no guarding, no rebound, EXTREMITIES: 2+ pulses, NEUROLOGICAL: Cranial nerves II through XII grossly intact. Strength 4/5 on right LE, 3/5 on left LE, sensation intact UE and LE b/l, Hip flexion intact b/ l LE, reflexes hyperactive on the right knee, left knee reflex intact SKIN: Warm, dry, Laboratory Results - last 24 hr 07/28/19 07/29/19 07/29/19 15:45 06:50 06:50 WBC 7.0 RBC 2.73 L Hgb 8.4 L Hct 24.9 L MCV 91.4 MCH 30.9 MCHC 33.8 RDW 15.4 Plt Count 403 MPV 9.3 Absolute Neuts (auto) 2.8 Neutrophils % 40.1 L D Lymphocytes % 45.4 H D Monocytes % 11.5 H Eosinophils % 1.8 D Basophils % 1.2 Nucleated RBC % 0 Sodium 142 Potassium 4.0 Chloride 105 Carbon Dioxide 29 Anion Gap 8 BUN 6.9 L Creatinine 0.7 Est GFR (CKD-EPI)AfAm 117.09 Est GFR (CKD-EPI)NonAf 101.02 Random Glucose 86 Calcium 8.9 Total Bilirubin 0.3 AST 20 ALT 34 Alkaline Phosphatase 112 C-Reactive Protein 12.2 H Total Protein 5.9 L Albumin 2.4 L Vancomycin Pre-Dose 13.9 L Active Medications Current Medications Acetaminophen (Tylenol -) 650 mg PO Q6H PRN PRN Reason: FEVER Last Admin: 07/28/19 17:29 Dose: 650 mg Albuterol Sulfate (Ventolin 0.083% Nebulizer Soln -) 1 amp NEB Q4H PRN PRN Reason: SHORT OF BREATH/WHEEZING Last Admin: 07/27/19 12:44 Dose: 1 amp Baclofen (Lioresal -) 5 mg PO BID NEFTALY Last Admin: 07/29/19 21:50 Dose: 5 mg Benzocaine/Menthol (Cepacol Lozenge -) 1 each MM PRN PRN PRN Reason: SORE THROAT Last Admin: 07/28/19 12:54 Dose: 1 each Diphenhydramine HCl (Benadryl -) 25 mg PO Q6H PRN PRN Reason: FOR ITCHING Docusate Sodium (Colace -) 100 mg PO TID [facility] Last Admin: 07/29/19 21:49 Dose: 100 mg Folic Acid (Folic Acid -) 1 mg PO DAILY [facility] Last Admin: 07/29/19 09:50 Dose: 1 mg Heparin Sodium (Porcine) (Heparin -) 5,000 unit SQ Q8H NEFTALY Last Admin: 07/29/19 21:49 Dose: 5,000 unit Vancomycin HCl 1,250 mg/ (Dextrose) 250 mls @ 166.667 mls/hr IVPB Q12H NEFTALY; Protocol Last Admin: 07/30/19 03:27 Dose: 166.667 mls/hr Cefepime HCl 2 gm/ Dextrose 100 mls @ 200 mls/hr IVPB BID NEFTALY; Protocol Last Admin: 07/29/19 21:49 Dose: 200 mls/hr Oxycodone HCl (Roxicodone -) 10 mg PO Q3H PRN PRN Reason: Moderate Pain 4-6 Last Admin: 07/30/19 03:27 Dose: 10 mg Oxycodone HCl (Oxycontin -) 10 mg PO BID [facility] Last Admin: 07/29/19 21:48 Dose: 10 mg Pantoprazole Sodium (Protonix -) 40 mg PO DAILY [facility] Last Admin: 07/29/19 09:50 Dose: 40 mg Polyethylene Glycol (Miralax (For Daily Use) -) 17 gm PO DAILY PRN PRN Reason: CONSTIPATION Pregabalin (Lyrica -) 300 mg PO TID [facility] Last Admin: 07/29/19 21:47 Dose: 300 mg Fluticasone/Salmeterol (Advair 100mcg/50mcg -) 1 puff IH BID [facility] Last Admin: 07/29/19 21:49 Dose: 1 puff ASSESSMENT/PLAN: POD #6 multilumbar decompression/fusion and revision, POD#2 wound exploration and wash out 49 y/o F w/ PMH of lower back pain w/ 2 prior surgeries to the back, presents s/ p L3-L5 laminectomy with hardware removal and replacement, was found to have sepsis 2/2 to wound infxn #Sepsis 2/2 to wound infxn Continue Abx- vanco D6, zosyn D5 Avoid lying on back or left flank as per neurosurgery r/p Vanc trough in 3 days BCx - no growth, gram stain with PMNS, cultures negative to date Surgical site dressed well and no signs of bleeding, drainage or erythema Consider PICC line for tomorrow As per surgery- Patient will need chcf antibiotics. Working with ID to put together outpatient antibiotics management Post void bladder scan done this morning Plan as per ID at this time is for 6 weeks vanco/cefepime (empiric-given fever, elevated inflammatory markers, +PMNs on gram stain) #Back pain 2/2 to spinal stenosis Pain management w/ oxycontin and oxycodone PT walked pt #Urinary Retention likely 2/2 to post op Quintero placed Will consider removing in the am #Normocytic anemia monitor h/h #Asthma Cont inhaler #DVT ppx Heparin sq #FEN Regular diet Dispo: continue abx, pain management, monitor H/H, picc line possibly tomorrow Visit type - Emergency Visit Emergency Visit: Yes ED Registration Date: 07/23/19 Care time: The patient presented to the Emergency Department on the above date and was hospitalized for further evaluation of their emergent condition. - New Patient This patient is new to me today: Yes Date on this admission: 07/31/19 - Critical Care Critical Care patient: No - Discharge Referral Referred to [facility] Yes ATTENDING PHYSICIAN STATEMENT I saw and evaluated the patient. I reviewed the resident's note and discussed the case with the resident. I agree with the resident's findings and plan as documented. SUBJECTIVE: OBJECTIVE: ASSESSMENT AND PLAN:
--- NOTE | 2019-07-29 19:43 | PN ---
Teaching Attending Note Name of Resident: Juwan Butts ATTENDING PHYSICIAN STATEMENT I saw and evaluated the patient. I reviewed the resident's note and discussed the case with the resident. I agree with the resident's findings and plan as documented. SUBJECTIVE: Patient is feeling better with no acute distress. s/p back sx OBJECTIVE: Vital Signs Temperature 97.8 F 07/29/19 15:00 Pulse Rate 110 H 07/29/19 15:00 Respiratory Rate 20 07/29/19 15:00 Blood Pressure 102/68 07/29/19 15:00 O2 Sat by Pulse Oximetry (%) 97 07/27/19 21:00 GENERAL: The patient is awake, alert, and fully oriented, in no acute distress. HEAD: Normal with no signs of trauma. EYES: PERRL, extraocular movements intact, sclera anicteric, conjunctiva clear. ENT: Ears normal, oropharynx clear without exudates, moist mucous membranes. NECK: Trachea midline, full range of motion, supple. LUNGS: Breath sounds equal, clear to auscultation bilaterally, no wheezes, no crackles, no accessory muscle use. HEART: Regular rate and rhythm, S1, S2 without murmur, rub or gallop. ABDOMEN: Soft, nontender, nondistended, normoactive bowel sounds, no guarding, no rebound, no hepatosplenomegaly, no masses. EXTREMITIES: 2+ pulses, warm, well-perfused, no edema. NEUROLOGICAL: Cranial nerves II through XII grossly intact. Normal speech, gait not observed. PSYCH: Normal mood, normal affect. SKIN: Warm, dry, normal turgor, no rashes or lesions noted CBCD WBC 7.0 K/mm3 (4.0-10.0) 07/29/19 06:50 RBC 2.73 M/mm3 (3.60-5.2) L 07/29/19 06:50 Hgb 8.4 GM/dL (10.7-15.3) L 07/29/19 06:50 Hct 24.9 % (32.4-45.2) L 07/29/19 06:50 MCV 91.4 fl (80-96) 07/29/19 06:50 MCHC 33.8 g/dl (32.0-36.0) 07/29/19 06:50 RDW 15.4 % (11.6-15.6) 07/29/19 06:50 Plt Count 403 K/MM3 (134-434) 07/29/19 06:50 MPV 9.3 fl (7.5-11.1) 07/29/19 06:50 CMP Sodium 142 mmol/L (136-145) 07/29/19 06:50 Potassium 4.0 mmol/L (3.5-5.1) 07/29/19 06:50 Chloride 105 mmol/L (98-107) 07/29/19 06:50 Carbon Dioxide 29 mmol/L (21-32) 07/29/19 06:50 Anion Gap 8 MMOL/L (8-16) 07/29/19 06:50 BUN 6.9 mg/dL (7-18) L 07/29/19 06:50 Creatinine 0.7 mg/dL (0.55-1.3) 07/29/19 06:50 Random Glucose 86 mg/dL (74-106) 07/29/19 06:50 Calcium 8.9 mg/dL (8.5-10.1) 07/29/19 06:50 Total Bilirubin 0.3 mg/dL (0.2-1) 07/29/19 06:50 AST 20 U/L (15-37) 07/29/19 06:50 ALT 34 U/L (13-61) 07/29/19 06:50 Alkaline Phosphatase 112 U/L (45-117) 07/29/19 06:50 Total Protein 5.9 g/dl (6.4-8.2) L 07/29/19 06:50 Albumin 2.4 g/dl (3.4-5.0) L 07/29/19 06:50 CARDIAC ENZYMES Troponin I < 0.02 ng/ml (0.00-0.05) 07/25/19 05:52 Current Medications Generic Name Dose Route Start Last Admin Trade Name Freq PRN Reason Stop Dose Admin Acetaminophen 650 mg 07/27/19 10:45 07/28/19 17:29 Tylenol - PO 650 mg Q6H PRN Administration FEVER Albuterol Sulfate 1 amp 07/27/19 10:45 07/27/19 12:44 Ventolin 0.083% Nebulizer Soln - NEB 1 amp Q4H PRN Administration SHORT OF BREATH/WHEEZING Baclofen 5 mg 07/27/19 22:00 07/29/19 09:49 Lioresal - PO 5 mg BID NEFTALY Administration Benzocaine/Menthol 1 each 07/28/19 12:00 07/28/19 12:54 Cepacol Lozenge - MM 1 each PRN PRN Administration SORE THROAT Diphenhydramine HCl 25 mg 07/27/19 10:45 Benadryl - PO Q6H PRN FOR ITCHING Docusate Sodium 100 mg 07/27/19 14:00 07/29/19 15:01 Colace - PO 100 mg TID NEFTALY Administration Folic Acid 1 mg 07/28/19 10:00 07/29/19 09:50 Folic Acid - PO 1 mg DAILY NEFTALY Administration Heparin Sodium (Porcine) 5,000 unit 07/27/19 14:00 07/29/19 15:01 Heparin - SQ 5,000 unit Q8H NEFTALY Administration Vancomycin HCl 1,250 mg/ 250 mls @ 166.667 mls/hr 07/27/19 16:15 07/29/19 16: 13 Dextrose IVPB 166.667 mls/hr Q12H NEFTALY Administration Protocol Cefepime HCl 2 gm/ Dextrose 100 mls @ 200 mls/hr 07/29/19 22:00 IVPB BID NEFTALY Protocol Oxycodone HCl 10 mg 07/27/19 10:45 07/29/19 12:54 Roxicodone - PO 10 mg Q3H PRN Administration Moderate Pain 4-6 Oxycodone HCl 10 mg 07/27/19 22:00 07/29/19 09:51 Oxycontin - PO 10 mg BID NEFTALY Administration Pantoprazole Sodium 40 mg 07/28/19 10:00 07/29/19 09:50 Protonix - PO 40 mg DAILY NEFTALY Administration Polyethylene Glycol 17 gm 07/27/19 10:45 Miralax (For Daily Use) - PO DAILY PRN CONSTIPATION Pregabalin 300 mg 07/27/19 14:00 07/29/19 15:00 Lyrica - PO 300 mg TID NEFTALY Administration Fluticasone/Salmeterol 1 puff 07/27/19 22:00 07/29/19 09:53 Advair 100mcg/50mcg - IH 1 puff BID NEFTALY Administration Home Medications Medication Instructions Recorded Baclofen 5 mg PO BID 07/22/19 Dexlansoprazole [Dexilant -] 60 mg PO DAILY 07/22/19 HYDROmorphone [Dilaudid -] 2 mg PO Q4H PRN 07/22/19 Medical Marijuana Oil PO PRN PRN 07/22/19 Fluticasone/Salmeterol [Advair 1 each IH PRN PRN 07/23/19 250-50 Diskus] Oxycodone HCl/Acetaminophen 1 - 2 tab PO Q6H PRN #20 tab MDD 8 07/24/19 [Percocet 5-325 mg Tablet] Microbiology 07/27/19 08:55 Body Fluid - Other Gram Stain - Final 07/27/19 08:55 Body Fluid - Other Body Fluid Culture - Preliminary NO AEROBIC GROWTH, 24 HRS 07/27/19 08:55 Body Fluid - Other Anaerobic Culture - Preliminary No growth. 07/27/19 08:55 Back Gram Stain - Final 07/27/19 08:55 Back Wound Culture - Preliminary No growth. 07/24/19 19:05 Blood - Peripheral Venous Blood Culture - Preliminary NO GROWTH OBTAINED AFTER 96 HOURS, INCUBATION TO CONTINUE FOR 1 DAYS. 07/24/19 19:30 Blood - Peripheral Venous Blood Culture - Preliminary NO GROWTH OBTAINED AFTER 96 HOURS, INCUBATION TO CONTINUE FOR 1 DAYS. 07/27/19 08:58 Wound Gram Stain - Final 07/24/19 19:00 Urine - Urine Franks Urine Culture - Final NO GROWTH OBTAINED ASSESSMENT AND PLAN: 49 y/o lady with h/o asthma, GERD, fibroids s/p hysterectomy, and low back pain with previous lower back surgeries who presented for sx. # POD #1 s/p I&D of wound 07/27.due to having Sepsis: Due to surgical wound infection .Improved . on IV vanco and zosyn. # h/o Spinal stenosis s/p revision of fusion L3-s1 on 07/23, pain meds. dc franks # Urinary retention: voiding now s/p franks # Normocytic anemia: w/u as out pt # H/o Asthma, cont inhalers DVT px: heparin sq
[2019-07-29] MEDS: CEFEPIME 2 GM in DEXTROSE 5%-WATER 100 ML IVPB SCH (21:49)
[2019-07-30] MEDS: VANCOMYCIN 1,250 MG in DEXTROSE 5%-WATER - 250 ML IVPB SCH (03:27)
[2019-07-30] MEDS: oxyCODONE HCL 5 MG TABLET PO PRN (03:27)
[2019-07-30] MEDS: HEPARIN NA (PORCINE) 5,000 UNITS/ML 1ML VIAL SQ SCH (06:11)
[2019-07-30] MEDS: PREGABALIN 100 MG CAPSULE PO SCH ×2 (06:11→15:08)
[2019-07-30] MEDS: DOCUSATE SODIUM 100 MG CAPSULE (FP) PO SCH ×2 (06:11→14:38)
[2019-07-30 07:32] LABS: BASO % 0.7 % (0-2.0); EOS % 2.3 % (0-4.5); HEMATOCRIT 24.9 % (32.4-45.2); HEMOGLOBIN 8.3 GM/dL (10.7-15.3); LYMPH % 32.7 % (8-40); MCH 29.9 pg (25.7-33.7); MCHC 33.3 g/dl (32.0-36.0); MEAN PLT VOLUME 8.7 fl (7.5-11.1); MONO % 14.1 % (3.8-10.2); NEUT % 50.2 % (42.8-82.8); PLATELET COUNT 432 K/MM3 (134-434); RBC 2.77 M/mm3 (3.60-5.2); RDW 15.1 % (11.6-15.6); WHITE BLOOD COUNT 7.1 K/mm3 (4.0-10.0)
[2019-07-30 08:19] LABS: ALBUMIN 2.3 g/dl (3.4-5.0); BILIRUBIN,TOTAL 0.2 mg/dL (0.2-1); BLOOD UREA NITROGEN 5.6 mg/dL (7-18); CREATININE 0.7 mg/dL (0.55-1.3); POTASSIUM 3.8 mmol/L (3.5-5.1); TOT PROT 5.5 g/dl (6.4-8.2)
[2019-07-30] MEDS ORDERED: PT OWN MED DRAWER 7, Y5N ONE (10:10)
--- NOTE | 2019-07-30 10:10 | PN ---
Progress Note (short form) - Note Progress Note: Surgery POD #7 revision of lumbar fusion L3-S1 with decompression and revision, now POD #3 exploration of wound with wash out. Patient seen and examined at bedside with no complaints. She states her pain is controlled. She has been tolerating her diet and OOB with assist and walker. She denies any CP, SOB, N/V, fever or chills. Vital Signs Temp 98.2 F 07/30/19 06:00 Pulse 99 H 07/30/19 06:00 Resp 20 07/30/19 06:00 BP 111/75 07/30/19 06:00 Pulse Ox 97 07/29/19 21:00 Intake & Output 07/29/19 07/29/19 07/30/19 11:59 23:59 11:59 Intake Total 1350 500 300 Output Total 70 Balance 1350 430 300 Intake: IV 1000 SL 1000 IVPB 350 300 300 Oral 200 Output: Drainage 70 Right Lower Back 70 Other: Voiding Method Toilet Toilet # Unmeasured Voids Void 2 3 Bowel Movement Yes # Bowel Movements 2 CBC, BMP 07/30/19 07:05 07/30/19 07:05 PE: A&Ox3, NAD Unlabored resp on RA Lumbar spine: incision c/d/i with surrounding tissue intact with no erythema, edema or evidence of collection or d/c. Drain secure at right lumbar paravetebral area with serosanguinous drainage, Drain removed. B/L LE compartments soft, supple and non-tender with 5/5 dorsi/plantar flexion Problem List - Problems (1) S/P lumbar fusion Assessment/Plan: Plan -pt is cleared for discharge from Neurosurgery standpoint -pt will have PICC line and terminal computer operator abx as per ID -pt should follow up with Dr. Schmitz, in the office as outpatient Pt seen and examined with Dr. Schmitz, who agrees with plan Code(s): Z98.1 - ARTHRODESIS STATUS
[2019-07-30] MEDS: oxyCODONE HCL 10 MG SUSTAINED ACTING TABLET PO SCH (10:30)
[2019-07-30] MEDS: FOLIC ACID 1 MG TABLET (FP) PO SCH (10:31)
[2019-07-30] MEDS: CEFEPIME 2 GM in DEXTROSE 5%-WATER 100 ML IVPB SCH (10:31)
[2019-07-30] MEDS: PANTOPRAZOLE 40 MG TABLET (FP) PO SCH (10:31)
[2019-07-30] MEDS: FLUTICASONE/SALMETEROL 100 MCG/50 MCG DISKUS IH SCH (10:33)
[2019-07-30] MEDS: BACLOFEN 10 MG TABLET (FP) PO SCH (10:40)
--- NOTE | 2019-07-30 11:42 | PN ---
Teaching Attending Note Name of Resident: Juwan Butts ATTENDING PHYSICIAN STATEMENT I saw and evaluated the patient. I reviewed the resident's note and discussed the case with the resident. I agree with the resident's findings and plan as documented. SUBJECTIVE: Patient is feeling well , wants to go home. wearing the the back brace. OBJECTIVE: Vital Signs Temperature 98.2 F 07/30/19 06:00 Pulse Rate 99 H 07/30/19 06:00 Respiratory Rate 20 07/30/19 06:00 Blood Pressure 111/75 07/30/19 06:00 O2 Sat by Pulse Oximetry (%) 97 07/29/19 21:00 GENERAL: The patient is awake, alert, and fully oriented, in no acute distress. HEAD: Normal with no signs of trauma. EYES: PERRL, extraocular movements intact, sclera anicteric, conjunctiva clear. ENT: Ears normal, oropharynx clear without exudates, moist mucous membranes. NECK: Trachea midline, full range of motion, supple. LUNGS: Breath sounds equal, clear to auscultation bilaterally, no wheezes, no crackles, no accessory muscle use. HEART: Regular rate and rhythm, S1, S2 without murmur, rub or gallop. ABDOMEN: Soft, nontender, nondistended, normoactive bowel sounds, no guarding, no rebound, no hepatosplenomegaly, no masses. EXTREMITIES: 2+ pulses, warm, well-perfused, no edema. NEUROLOGICAL: Cranial nerves II through XII grossly intact. Normal speech, gait is stable, wearing the brace. PSYCH: Normal mood, normal affect. SKIN: Warm, dry, normal turgor, no rashes or lesions noted CBCD WBC 7.1 K/mm3 (4.0-10.0) 07/30/19 07:05 RBC 2.77 M/mm3 (3.60-5.2) L 07/30/19 07:05 Hgb 8.3 GM/dL (10.7-15.3) L 07/30/19 07:05 Hct 24.9 % (32.4-45.2) L 07/30/19 07:05 MCV 90.0 fl (80-96) 07/30/19 07:05 MCHC 33.3 g/dl (32.0-36.0) 07/30/19 07:05 RDW 15.1 % (11.6-15.6) 07/30/19 07:05 Plt Count 432 K/MM3 (134-434) 07/30/19 07:05 MPV 8.7 fl (7.5-11.1) 07/30/19 07:05 CMP Sodium 143 mmol/L (136-145) 07/30/19 07:05 Potassium 3.8 mmol/L (3.5-5.1) 07/30/19 07:05 Chloride 108 mmol/L (98-107) H 07/30/19 07:05 Carbon Dioxide 26 mmol/L (21-32) 07/30/19 07:05 Anion Gap 8 MMOL/L (8-16) 07/30/19 07:05 BUN 5.6 mg/dL (7-18) L 07/30/19 07:05 Creatinine 0.7 mg/dL (0.55-1.3) 07/30/19 07:05 Random Glucose 91 mg/dL (74-106) 07/30/19 07:05 Calcium 9.0 mg/dL (8.5-10.1) 07/30/19 07:05 Total Bilirubin 0.2 mg/dL (0.2-1) 07/30/19 07:05 AST 17 U/L (15-37) 07/30/19 07:05 ALT 32 U/L (13-61) 07/30/19 07:05 Alkaline Phosphatase 105 U/L (45-117) 07/30/19 07:05 Total Protein 5.5 g/dl (6.4-8.2) L 07/30/19 07:05 Albumin 2.3 g/dl (3.4-5.0) L 07/30/19 07:05 CARDIAC ENZYMES Creatine Kinase 27 U/L (26-192) 07/30/19 07:05 Troponin I < 0.02 ng/ml (0.00-0.05) 07/25/19 05:52 Home Medications Medication Instructions Recorded Baclofen 5 mg PO BID 07/22/19 Dexlansoprazole [Dexilant -] 60 mg PO DAILY 07/22/19 HYDROmorphone [Dilaudid -] 2 mg PO Q4H PRN 07/22/19 Medical Marijuana Oil PO PRN PRN 07/22/19 Fluticasone/Salmeterol [Advair 1 each IH PRN PRN 07/23/19 250-50 Diskus] Oxycodone HCl/Acetaminophen 1 - 2 tab PO Q6H PRN #20 tab MDD 8 07/24/19 [Percocet 5-325 mg Tablet] Current Medications Generic Name Dose Route Start Last Admin Trade Name Freq PRN Reason Stop Dose Admin Acetaminophen 650 mg 07/27/19 10:45 07/28/19 17:29 Tylenol - PO 650 mg Q6H PRN Administration FEVER Albuterol Sulfate 1 amp 07/27/19 10:45 07/27/19 12:44 Ventolin 0.083% Nebulizer Soln - NEB 1 amp Q4H PRN Administration SHORT OF BREATH/WHEEZING Baclofen 5 mg 07/27/19 22:00 07/30/19 10:40 Lioresal - PO 5 mg BID NEFTALY Administration Benzocaine/Menthol 1 each 07/28/19 12:00 07/28/19 12:54 Cepacol Lozenge - MM 1 each PRN PRN Administration SORE THROAT Diphenhydramine HCl 25 mg 07/27/19 10:45 Benadryl - PO Q6H PRN FOR ITCHING Docusate Sodium 100 mg 07/27/19 14:00 07/30/19 06:11 Colace - PO 100 mg TID NEFTALY Administration Folic Acid 1 mg 07/28/19 10:00 07/30/19 10:31 Folic Acid - PO 1 mg DAILY NEFTALY Administration Heparin Sodium (Porcine) 5,000 unit 07/27/19 14:00 07/30/19 06:11 Heparin - SQ 5,000 unit Q8H NEFTALY Administration Vancomycin HCl 1,250 mg/ 250 mls @ 166.667 mls/hr 07/27/19 16:15 07/30/19 03: 27 Dextrose IVPB 166.667 mls/hr Q12H NEFTALY Administration Protocol Cefepime HCl 2 gm/ Dextrose 100 mls @ 200 mls/hr 07/29/19 22:00 07/30/19 10: 31 IVPB 200 mls/hr BID NEFTALY Administration Protocol Oxycodone HCl 10 mg 07/27/19 22:00 07/30/19 10:30 Oxycontin - PO 10 mg BID NEFTALY Administration Pantoprazole Sodium 40 mg 07/28/19 10:00 07/30/19 10:31 Protonix - PO 40 mg DAILY NEFTALY Administration Polyethylene Glycol 17 gm 07/27/19 10:45 Miralax (For Daily Use) - PO DAILY PRN CONSTIPATION Pregabalin 300 mg 07/27/19 14:00 07/30/19 06:11 Lyrica - PO 300 mg TID NEFTALY Administration Fluticasone/Salmeterol 1 puff 07/27/19 22:00 07/30/19 10:33 Advair 100mcg/50mcg - IH 1 puff BID NEFTALY Administration Microbiology 07/24/19 19:30 Blood - Peripheral Venous Blood Culture - Final NO GROWTH AFTER 5 DAYS INCUBATION 07/24/19 19:05 Blood - Peripheral Venous Blood Culture - Final NO GROWTH AFTER 5 DAYS INCUBATION 07/27/19 08:55 Body Fluid - Other Gram Stain - Final 07/27/19 08:55 Body Fluid - Other Body Fluid Culture - Preliminary NO AEROBIC GROWTH, 24 HRS 07/27/19 08:55 Body Fluid - Other Anaerobic Culture - Preliminary No growth. 07/27/19 08:55 Back Gram Stain - Final 07/27/19 08:55 Back Wound Culture - Preliminary No growth. 07/27/19 08:58 Wound Gram Stain - Final 07/24/19 19:00 Urine - Urine Franks Urine Culture - Final NO GROWTH OBTAINED ASSESSMENT AND PLAN: 49 y/o lady with h/o asthma, GERD, fibroids s/p hysterectomy, and low back pain with previous lower back surgeries who presented for sx. # POD #2 s/p I&D of wound 07/27, due to having Sepsis: Due to surgical wound infection .Improved .s/p IV vanco and zosyn. being discharged on Daptomycin # h/o Spinal stenosis s/p revision of fusion L3-s1 on 07/23, pain meds. dc franks # Urinary retention: voiding now s/p franks # Normocytic anemia: w/u as out pt # H/o Asthma, cont inhalers DVT px: heparin sq Patient is being discharged on Daptomycin and cefepime with a picc line for total of 6 weeks as per recommendations of .
[2019-07-30] MEDS ORDERED: DAPTOMYCIN 450 MG in SODIUM CHLORIDE 50 ML IVPB ONE (15:30)
[2019-07-30 15:54] VITALS: BP 110/74; PULSE 102; TEMP 98.5
--- NOTE | 2019-07-30 16:47 | DS ---
"Physical Exam: SUBJECTIVE: Patient seen and examined and states that she has improved significantly. Patient has no c/o or issues. Patient is asymptomatic, afebrile and stable. OBJECTIVE: Vital Signs Period Temp Pulse Resp BP Sys/Mcnamara Pulse Ox Last 24 Hr 98 F-99 F 99-107 20-20 110-127/55-79 97-97 PHYSICAL EXAM GENERAL: The patient is awake, alert, and fully oriented, in no acute distress. EYES: PERRL, extraocular movements intact, NECK: Supple. No carotid bruit, No LAD LUNGS: Breath sounds equal, clear to auscultation bilaterally, no wheezes, no crackles, HEART: Regular rate and rhythm, S1, S2 without murmur, rub or gallop. ABDOMEN: Mild abdominal tenderness on the lower abdominal region. Soft, nondistended, normoactive bowel sounds, no guarding, no rebound, EXTREMITIES: 2+ pulses NEUROLOGICAL: Cranial nerves II through XII grossly intact. Strength 5/5 UE and lower right extremity. Strength 3/5 left LE. Sensation intact b/l UE and LE SKIN: Warm, dry, normal turgor, LABS Laboratory Results - last 24 hr 07/30/19 07/30/19 07/30/19 07:05 07:05 07:05 WBC 7.1 RBC 2.77 L Hgb 8.3 L Hct 24.9 L MCV 90.0 MCH 29.9 MCHC 33.3 RDW 15.1 Plt Count 432 MPV 8.7 Absolute Neuts (auto) 3.5 Neutrophils % 50.2 D Lymphocytes % 32.7 D Monocytes % 14.1 H Eosinophils % 2.3 Basophils % 0.7 Nucleated RBC % 0 ESR 114 H Sodium 143 Potassium 3.8 Chloride 108 H Carbon Dioxide 26 Anion Gap 8 BUN 5.6 L Creatinine 0.7 Est GFR (CKD-EPI)AfAm 117.09 Est GFR (CKD-EPI)NonAf 101.02 Random Glucose 91 Calcium 9.0 Total Bilirubin 0.2 AST 17 ALT 32 Alkaline Phosphatase 105 Creatine Kinase 27 C-Reactive Protein 7.5 H Total Protein 5.5 L Albumin 2.3 L HOSPITAL COURSE: Date of Admission:07/23/19 49 y/o F w/ PMH of lower back pain w/ 2 prior surgeries to the back, presents s/ p L3-L5 laminectomy with hardware removal and replacement, was found to have sepsis 2/2 to wound infxn. After surgery patient spiked a fever, leukocytosis and elevated lactic acid was noted, therefore treatment for sepsis was started. Patient was started on Antibiotics- vanc and zosyn and symptoms resolved. Patient was taken back into surgery by neurosurgery for a washout of the wound due to suspicion that the surgical wound was the source of infection as per CT A /P. Further tests were done including lab work, blood work, wound culture, blood culture. CXR and Ultrasound was negative. Patient still c/o of back pain that was managed with pain meds. Patient also had weakness in her left leg, which is a chronic condition from her previous surgeries. Overall, patient's symptoms have resolved. PICC line was placed and patient was sent home on Abx. CXR- no acute changes CT a/p: abnormal changes in lower lumbar spine could be suggestive of the source of infection. Date of Discharge: 07/30/19 Minutes to complete discharge: 35 Discharge Summary Problems reviewed: Yes Reason For Visit: LUMBAR STENOSIS & INSTABILITY Current Active Problems Postoperative fever (Acute) S/P lumbar fusion (Acute) Condition: Good - Instructions Diet, Activity, Other Instructions: You were in the hospital for an L3-L5 laminectomy with hardware removal and replacement. The surgery was uncomplicated and you recovered well. You were able to tolerate a regular diet and walk with PT after surgery. Please follow Dr. Schmitz's instructions below. We are giving you a bake brace to wear, please wear it whenever you get out of bed. You can remove the brace to sleep and shower. Please continue to take your home medications as prescribed. Any pain prescription medication ordered should be taken as prescribed for moderate to severe pain. If you have additional pain you may take Tylenol or acetaminophen. Please AVOID any ibuprofen (Motrin, Advil, Aleve, Toradol, etc) for 3 months. Please follow up with the following doctors within 1 week of discharge from the hospital: - Dr. Schmitz, the surgeon who did your surgery - Dr. Nelson, a primary care physician. You did not have a primary care doctor on file so we are referring you to our primary care clinic at [address] [place] [address] ([phone]). If you have your own PCP you may follow up with them instead. If you have increased weakness, numbness, difficulty walking please return to the emergency department immediately. WEEKLY LABS: CBC, CMP, MAg,PHOS Post Operative Instructions Physical Activity Resume your normal everyday activity as tolerated. No heavy lifting or exercise until seen by your surgeon. You may walk unlimited amounts and climb stairs. You may resume driving the car when you feel safe and comfortable behind the wheel and you are no longer wearing your brace. Do not operate a vehicle while taking narcotic medication. Brace If you had back surgery, wear TLSO Brace whenever out of bed. May remove to sleep and shower. If you had neck surgery, wear surgical collar 23 hr/day. Remove to shower only. Wound Care Keep your incision clean, dry and covered at all times. Apply an occlusive dressing (Saran wrap or Tegaderm) when showering to avoid getting your incision wet. Do not submerge incision or apply ointments or creams. Diet There are no dietary restrictions. Eat healthy, high-fiber foods. Drink 6-8 glasses of liquid each day. This will assist in keeping your bowels regular. Pain Management You may take Tylenol or acetaminophen. Any pain prescription medication ordered should be taken as prescribed for moderate to severe pain. Avoid any ibuprofen (Motrin, Advil, Aleve, Toradol, etc) for 3 months unless otherwise discussed with your surgeon. Call Dr Self for any of the following: Severe pain not relieved by medication Fever of 101 or higher Excessive bleeding or drainage on dressing Inability to urinate Any chest pain or shortness of breath, seek Emergency Care. Call the office to confirm a post-operative appointment for 2-3 weeks post-op Tin Schmitz MD [facility] [address] [place] [address]. [place] [address] This report was requested by: Xochitl Licona | Reference #: [id number] Others' Prescriptions Patient Name: Mare Hamm Date: 1970 Address: [facility] EVIE CAMPBELL [address] [place] [address] Sex: Female Rx Written Rx Dispensed Drug Quantity Days Supply Prescriber Name 07/08/2019 07/08/2019 diazepam 10 mg tablet 1 1 Tin Schmitz F Patient Name: Mare Hamm Date: 1970 Address: [address] [place] [address] Sex: Female Rx Written Rx Dispensed Drug Quantity Days Supply Prescriber Name 06/25/2019 07/06/2019 hydromorphone 2 mg tablet 120 20 Marti Bateman MD 06/29/2019 07/01/2019 oxycontin er 20 mg tablet 14 7 Marti Bateman MD Referrals: Tonny Nelson MD [Staff Physician] - 1 Week Tin Schmitz MD, ROSEANN [Staff Physician] - 1 Week Alla Thomason MD [Staff Physician] - 1 Week Disposition: HOME - Home Medications Comprehensive Discharge Medication List: Ambulatory Orders Baclofen 5 mg PO BID 07/22/19 Dexlansoprazole [Dexilant -] 60 mg PO DAILY 07/22/19 HYDROmorphone [Dilaudid -] 2 mg PO Q4H PRN 07/22/19 Fluticasone/Salmeterol [Advair 250-50 Diskus] 1 each IH PRN PRN 07/23/19 Oxycodone HCl/Acetaminophen [Percocet 5-325 mg Tablet] 1 - 2 tab PO Q6H PRN #20 tab MDD 8 07/24/19 Albuterol 0.083% Nebulizer Sakina [Ventolin 0.083% Nebulizer Soln -] 1 amp NEB Q4H PRN amp 07/30/19 Cefepime [Maxipime (Restricted To Id) -] 2 gm IVPB BID #70 vial 07/30/19 Daptomycin [Cubicin (Restricted To Id) -] 450 mg IV DAILY #35 vial 07/30/19 Polyethylene Glycol 3350 [Miralax 119 gm Btl -] 17 gm PO DAILY PRN bottle 07/30 This patient is new to me today: Yes Date on this admission: 07/31/19 Emergency Visit: Yes ED Registration Date: 07/23/19 Care time: The patient presented to the Emergency Department on the above date and was hospitalized for further evaluation of their emergent condition. Critical Care patient: No - Discharge Referral Referred to [facility] Med [facility] No ATTENDING PHYSICIAN STATEMENT I saw and evaluated the patient. I reviewed the resident's note and discussed the case with the resident. I agree with the resident's findings and plan as documented. SUBJECTIVE: OBJECTIVE: ASSESSMENT AND PLAN:"
== END 2019-07-30 17:01 | disposition home or self-care (01) | DRG 453 ==
LOC: JSAMEDAYSX 07-23 06:09 → J4W 07-23 13:32 → J8W 07-27 11:52
PROVIDERS: ADMIT Internal Medicine; ATTEND Internal Medicine
PROC: 0SG10J1 Fusion of 2 or more Lumbar Vertebral Joints with Synthetic Substitute, Posterior Approach, Posterior Column, Open Approach (ICD-10-PCS; 2019-07-23)
PROC: 0SG30AJ Fusion of Lumbosacral Joint with Interbody Fusion Device, Posterior Approach, Anterior Column, Open Approach (ICD-10-PCS; 2019-07-23)
PROC: 0JX70ZB Transfer Back Subcutaneous Tissue and Fascia with Skin and Subcutaneous Tissue, Open Approach (ICD-10-PCS; 2019-07-23)
PROC: 0SG1071 Fusion of 2 or more Lumbar Vertebral Joints with Autologous Tissue Substitute, Posterior Approach, Posterior Column, Open Approach (ICD-10-PCS; 2019-07-23)
PROC: 0SG3071 Fusion of Lumbosacral Joint with Autologous Tissue Substitute, Posterior Approach, Posterior Column, Open Approach (ICD-10-PCS; 2019-07-23)
PROC: 0SP00JZ Removal of Synthetic Substitute from Lumbar Vertebral Joint, Open Approach (ICD-10-PCS; 2019-07-23)
PROC: B01BZZZ Fluoroscopy of Spinal Cord (ICD-10-PCS; 2019-07-23)
PROC: 0QB00ZZ Excision of Lumbar Vertebra, Open Approach (ICD-10-PCS; principal; 2019-07-23 08:00)
PROC: 3E10X8Z Irrigation of Skin and Mucous Membranes using Irrigating Substance (ICD-10-PCS; 2019-07-27)
PROC: 02HV33Z Insertion of Infusion Device into Superior Vena Cava, Percutaneous Approach (ICD-10-PCS; 2019-07-30)
PROC: B518ZZA Fluoroscopy of Superior Vena Cava, Guidance (ICD-10-PCS; 2019-07-30)
DX: M48.061 Spinal stenosis, lumbar region without neurogenic claudication (principal); A41.9 Sepsis, unspecified organism; T81.49XA Infection following a procedure, other surgical site, initial encounter; E87.2 Acidosis; D72.829 Elevated white blood cell count, unspecified; R33.9 Retention of urine, unspecified; D64.9 Anemia, unspecified; J45.909 Unspecified asthma, uncomplicated; K21.9 Gastro-esophageal reflux disease without esophagitis; Y83.9 Surgical procedure, unspecified as the cause of abnormal reaction of the patient, or of later complication, without mention of misadventure at the time of the procedure; M53.2X6 Spinal instabilities, lumbar region
CPT/HCPCS: 36415; 36569; 71045-TC-FY; 72131-TC; 74177-TC; 76000-TC-FY; 76705-TC; 77001-TC-FY; 80048; 80053; 80076; 81003; 82550; 83605; 83615; 83735; 84100; 84484; 85025; 85027; 85651; 86140; 86850; 86900; 86901; 87040; 87070; 87075; 87086; 87205; 88304-TC; 93005; 93010; 93970-TC; 94640; 94760; 97116-GP; 97162-GP; C1751; G0480; J0131; J0475; J0878; J1644

== ENCOUNTER 2019-08-04 17:02 | Inpatient (IN) | payer BC ==
--- NOTE | 2019-08-04 17:24 | PDOC ---
Rapid Medical Evaluation Chief Complaint: Pain Time Seen by Provider: 08/04/19 17:12 Medical Evaluation: Allergies Allergy/AdvReac Type Severity Reaction Status Date / Time latex Allergy "rash from Verified 08/04/19 17:15 tape" No Known Drug Allergies Allergy Verified 08/04/19 17:15 Vital Signs Temp Pulse Resp BP Pulse Ox 98.7 F 107 H 18 117/74 100 08/04/19 17:11 08/04/19 17:11 08/04/19 17:11 08/04/19 17:11 08/04/19 17:11 08/04/19 17:20 I have performed a brief in-person evaluation of this patient. The patient presents with a chief complaint of:abd pain w/ diarrhea, nausea and malaise. Pt s/p lumbar fusion 07/23/[address] Rojas, C/B post op wound infection, currently has PICC in place receiving daptomycin and cefepime at home. Sent in by PMD to r/o cdif. Also reports worsening of her post op back pain. Pertinent physical exam findings:sophia uncomfortable and slightly pale, tachy to 107 I have ordered the following:labs The patient will proceed to the ED for further evaluation. Discharge Disposition - Diagnosis Diarrhea Qualifiers: Diarrhea type: unspecified type Qualified Code(s): R19.7 - Diarrhea, unspecified - Discharge Dispostion Last Admission D/C Date: 07/30/19 - Referrals - Patient Instructions - Post Discharge Activity
[2019-08-04 17:34] LABS: BASO % 1.2 % (0-2.0); EOS % 0.5 % (0-4.5); HEMATOCRIT 28.8 % (32.4-45.2); HEMOGLOBIN 9.5 GM/dL (10.7-15.3); LYMPH % 21.8 % (8-40); MCH 30.3 pg (25.7-33.7); MCHC 32.9 g/dl (32.0-36.0); MONO % 11.9 % (3.8-10.2); NEUT % 64.6 % (42.8-82.8); PLATELET COUNT 437 K/MM3 (134-434); RBC 3.13 M/mm3 (3.60-5.2); RDW 15.7 % (11.6-15.6); WHITE BLOOD COUNT 7.9 K/mm3 (4.0-10.0)
--- NOTE | 2019-08-04 17:52 | PDOC ---
Documentation entered by Naomy Buenrostro SCRIBE, acting as scribe for Kelle Butts MD. Kelle Butts MD: This documentation has been prepared by the Porter sandoval Adrianna, SCRIBE, under my direction and personally reviewed by me in its entirety. I confirm that the documentation accurately reflects all work, treatment, procedures, and medical decision making performed by me. Attending Attestation - Resident Resident Name: KoryButch - ED Attending Attestation I have performed the following: I have examined & evaluated the patient, The case was reviewed & discussed with the resident, I agree w/resident's findings & plan, Exceptions are as noted - HPI HPI: 08/05/19 01:12 49 yo female p/w back pain after spinal surgery on Jul 23 - Physicial Exam PE: 08/04/19 21:50 alert and conversant 49 yo female wth c/o pain at her surgical pain head ncat neck supple lungs cta b/l cvs [id number] abd no rebound Skin surgical site has no purulence,no erythema,no drainage neuro axox3 08/04/19 23:48 - Medical Decision Making 08/04/19 18:08 49-year-old woman who had a L3-L4 laminectomy with hardware removal and replacement on July 23 presents because of nausea and some loose stools. She has a PICC line and is receiving daptomycin And Maxipime 08/04/19 18:10 UA negative, cbc and chemistries are essentially normal 08/04/19 23:43 pt has persistent pain and will be admitted for pain control 08/04/19 23:47 Heart Score/ECG Review - ECG Intrepretation Comment:: Normal sinus rhythm with sinus arrhythmia Vent rate 75bpm, MA interval 140ms, QRS duration 72ms, QT/QTc 390/435ms, P-R-T axes 27 46 14
[2019-08-04 18:00] LABS: ALBUMIN 3.1 g/dl (3.4-5.0); BILIRUBIN,TOTAL 0.1 mg/dL (0.2-1); BLOOD UREA NITROGEN 5.4 mg/dL (7-18); CALCIUM 9.4 mg/dL (8.5-10.1); CREATININE 0.6 mg/dL (0.55-1.3); POTASSIUM 3.6 mmol/L (3.5-5.1); TOT PROT 7.1 g/dl (6.4-8.2)
[2019-08-04] MEDS ORDERED: ACETAMINOPHEN 1000 MG/100 ML VIAL (NON FORMULARY) IVPB ONE (18:00)
[2019-08-04] MEDS ORDERED: SODIUM CHLORIDE 1,000 ML IV STA (18:01)
[2019-08-04] MEDS ORDERED: ACETAMINOPHEN INJECTION 100 ML IVPB ONE (18:14)
--- NOTE | 2019-08-04 18:47 | PDOC ---
History of Present Illness - General Chief Complaint: Pain Stated Complaint: SENT BY PCP/PAIN Time Seen by Provider: 08/04/19 17:12 History Source: Patient Exam Limitations: No Limitations - History of Present Illness Initial Comments: 08/04/19 23:10 49 yo F with a hx of chronic back pain with previous L3-L5 laminectomy that was surgically revised with replacement of hardware [address] Schmitz presents to the emergency department with acute on chronic back pain with radiation to the left anterior thigh and leg. She currently has a right PICC line with daptomycin and cefepime. Per the patient, she states it occurred while at rest. She last took dilaudid 2 mg PO at 12 pm without abatement of the pain. Denies the following: fevers, chills, SOB, chest pain, nausea, vomiting, dysuria, hematuria, urinary incontinence, michael-anal anesthesia, bowel incontinence, and ataxia. The patient denies headache. She states she takes oxycodone, percocet, dilaudid, and baclofen for pain management. She is followed by Dr. Schmitz. In addition, she complains of lower abdominal pain that is bilateral that is acute on chronic. Allergies: NKDA Past History - Past Medical History Allergies/Adverse Reactions: Allergies Allergy/AdvReac Type Severity Reaction Status Date / Time latex Allergy "rash from Verified 08/04/19 17:15 tape" No Known Drug Allergies Allergy Verified 08/04/19 17:15 Home Medications: Ambulatory Orders Baclofen 5 mg PO BID 07/22/19 Dexlansoprazole [Dexilant -] 60 mg PO DAILY 07/22/19 HYDROmorphone [Dilaudid -] 2 mg PO Q4H PRN 07/22/19 Fluticasone/Salmeterol [Advair 250-50 Diskus] 1 each IH PRN PRN 07/23/19 Oxycodone HCl/Acetaminophen [Percocet 5-325 mg Tablet] 1 - 2 tab PO Q6H PRN #20 tab MDD 8 07/24/19 Albuterol 0.083% Nebulizer Sakina [Ventolin 0.083% Nebulizer Soln -] 1 amp NEB Q4H PRN amp 07/30/19 Cefepime [Maxipime (Restricted To Id) -] 2 gm IVPB BID #70 vial 07/30/19 Daptomycin [Cubicin (Restricted To Id) -] 450 mg IV DAILY #35 vial 07/30/19 Polyethylene Glycol 3350 [Miralax 119 gm Btl -] 17 gm PO DAILY PRN bottle 07/30 Asthma: Yes COPD: No GI Disorders: Yes (reflux) - Psycho Social/Smoking Cessation Hx Smoking History: Never smoked Have you smoked in the past 12 months: No Hx Alcohol Use: Yes (soccially) Drug/Substance Use Hx: Yes Substance Use Type: Marijuana Hx Substance Use Treatment: Yes ([facility]) Review of Systems - Review of Systems Able to Perform ROS?: Yes Is the patient limited Turkish proficient: No Constitutional: No: Chills, Diaphoresis, Fever, Weakness HEENTM: No: Eye Pain, Ear Pain, Nose Pain, Throat Pain, Mouth Pain Respiratory: No: Cough, Shortness of Breath, Hemoptysis Cardiac (ROS): No: Chest Pain, Lightheadedness, Palpitations, Syncope ABD/GI: Yes: Diarrhea, Abdominal cramping. No: Constipated, Nausea, Rectal Bleeding, Vomiting, Tarry Stools Musculoskeletal: Yes: Back Pain. No: Joint Pain, Neck Pain Integumentary: No: Bruising, Erythema, Rash Neurological: No: Headache, Numbness, Tingling, Tremors Endocrine: No: Unexplained Weight Gain Hematologic/Lymphatic: No: Anemia *Physical Exam - Vital Signs Last Vital Signs Temp Pulse Resp BP Pulse Ox 98.7 F 107 H 18 117/74 100 08/04/19 17:11 08/04/19 17:11 08/04/19 17:11 08/04/19 17:11 08/04/19 17:11 - Physical Exam General Appearance: Yes: Nourished, Appropriately Dressed. No: Apparent Distress, Intoxicated HEENT: positive: EOMI, NATALIIA, Normal Voice, Symmetrical, Pharynx Normal, Hearing Grossly Normal. negative: Pale Conjunctivae, Scleral Icterus (R), Scleral Icterus (L), Muffled/Hoarse voice, Pharyngeal Erythema, Tonsillar Exudate, Tonsillar Erythema, Nasal Congestion, Rhinorrhea, Sinus Tenderness, Excessive drooling Neck: positive: Trachea midline, Supple. negative: Tender, Lymphadenopathy (R) , Lymphadenopathy (L), Tender lateral, Tender midline Respiratory/Chest: positive: Lungs Clear, Normal Breath Sounds. negative: Chest Tender, Respiratory Distress, Accessory Muscle Use, Crackles, Rales, Rhonchi, Stridor, Wheezing Cardiovascular: positive: Regular Rhythm, Regular Rate, S1, S2. negative: Edema , Systolic Murmur Gastrointestinal/Abdominal: positive: Normal Bowel Sounds, Tender (LLQ, midline lower abdominal, and RLQ tenderness to palpation. ), Flat, Soft Lymphatic: negative: Adenopathy Musculoskeletal: positive: Normal Inspection, Other (surgical site present on L3 -L5 region without erythema without purulent discharge. No fluctuance noted. ). negative: CVA Tenderness Extremity: positive: Normal Capillary Refill, Normal Inspection, Normal Range of Motion, Other (decreased sensation on the left L1-L5 LE. 5/5 strength bilaterally in the LE. ). negative: Tender Integumentary: positive: Normal Color, Dry, Warm Neurologic: positive: marketing automation specialist II-XII NML intact, Fully Oriented, Alert, Normal Mood/ Affect, Motor Strength 02/08 ED Treatment Course - LABORATORY CBC & Chemistry Diagram: 08/04/19 17:25 08/04/19 17:25 - ADDITIONAL ORDERS Additional order review: Laboratory Results 08/04/19 08/04/19 17:25 17:25 Sodium 140 Potassium 3.6 Chloride 106 Carbon Dioxide 27 Anion Gap 7 L BUN 5.4 L Creatinine 0.6 Est GFR (CKD-EPI)AfAm 123.18 Est GFR (CKD-EPI)NonAf 106.28 Random Glucose 94 Calcium 9.4 Total Bilirubin 0.1 L AST 13 L ALT 25 Alkaline Phosphatase 101 Total Protein 7.1 Albumin 3.1 L Serum , Qual Negative 08/04/19 17:25 RBC 3.13 L MCV 92.0 MCHC 32.9 RDW 15.7 H MPV 8.0 Neutrophils % 64.6 D Lymphocytes % 21.8 D Monocytes % 11.9 H Eosinophils % 0.5 Basophils % 1.2 - Medications Given in the ED: ED Medications Discontinued Medications Generic Name Dose Route Start Last Admin Trade Name Freq PRN Reason Stop Dose Admin Acetaminophen 1,000 mg 08/04/19 18:00 08/04/19 18:22 Ofirmev Injection - IVPB 08/04/19 18:01 1,000 mg ONCE ONE Administration Medical Decision Making - Medical Decision Making 08/04/19 23:13 49 yo F with a hx of chronic back pain with previous L3-L5 laminectomy that was surgically revised with replacement of hardware [address] Schmitz presents to the emergency department with acute on chronic back pain with radiation to the left anterior thigh and leg. Initial vitals: Initial Vital Signs Temp Pulse Resp BP Pulse Ox 98.7 F 107 H 18 117/74 100 08/04/19 17:11 08/04/19 17:11 08/04/19 17:11 08/04/19 17:11 08/04/19 17:11 Work up: management of acute pain. Unlikely to be cauda equina given lack of red flag signs such as motor weakness, urinary incontinence, and michael-anal anesthesia. Likely she is having acute pain on chronic. Will treat her symptomatically. Will obtain labs. I spoke to Dr. Reeves who states that its unlikely that she will need another CT as she is likely having post operative pain. Patient was given 1 gram of tylenol. at the time of administration, her pain was 8/10. At the time of dilaudid 2 mg IV administration, she states her pain was still at 8/10 The patient was reassessed and she continued to have 8/10 pain. She complained of lower abdominal pain that has been persistence since initial assessment. A CT abdomen and pelvis will be ordered to elucidate pathologies. Unlikely to be infectious given that she is on cefepime and daptomycin through her pICC line. Patient signed out to night team. Patient likely will be admitted for intractable pain. 08/04/19 23:18 08/04/19 23:20 Discharge - Discharge Information Problems reviewed: Yes Clinical Impression/Diagnosis: Abdominal pain, Back pain Diarrhea Qualifiers: Diarrhea type: unspecified type Qualified Code(s): R19.7 - Diarrhea, unspecified - Follow up/Referral Referrals: Aleksandra Delaney MD [Primary Care Provider] - - Patient Discharge Instructions - Post Discharge Activity
[2019-08-04] MEDS ORDERED: HYDROmorphone HCL CARPU-JECT 2 MG/1 ML DISP.SYRIN IVPUSH ONE (19:19)
[2019-08-04] MEDS ORDERED: HYDROmorphone HCl 2 MG/ML VIAL ONE (19:35)
[2019-08-04 20:07] LABS: PH,URINE 6.5 (5.0-8.0); URINE APPEARANCE CLEAR; URINE BILIRUBIN NEGATIVE (NEGATIVE); URINE COLOR YELLOW; URINE GLUCOSE (UA) NEGATIVE (NEGATIVE); URINE KETONE TRACE (NEGATIVE); URINE LEUK ESTERASE NEGATIVE (NEGATIVE); URINE NITRITE NEGATIVE (NEGATIVE); URINE PROTEIN NEGATIVE (NEGATIVE); URINE UROBILINOGEN 0.2 mg/dL (0.2-1.0)
--- NOTE | 2019-08-04 23:03 | PDOC ---
*Physical Exam - Vital Signs Last Vital Signs Temp Pulse Resp BP Pulse Ox 98.7 F 107 H 18 117/74 100 08/04/19 17:11 08/04/19 17:11 08/04/19 17:11 08/04/19 17:11 08/04/19 17:11 - Physical Exam Comments: 08/04/19 23:08 GENERAL: Awake, alert, and fully oriented, in no acute distress HEAD: No signs of trauma, normocephalic, atraumatic EYES: PERRLA, EOMI, sclera anicteric, conjunctiva clear ENT: Auricles normal inspection, hearing grossly normal, nares patent, oropharynx clear without exudates. Moist mucosa NECK: Normal ROM, supple, no lymphadenopathy, JVD, or masses LUNGS: No distress, speaks full sentences, clear to auscultation bilaterally HEART: Regular rate and rhythm, normal S1 and S2, no murmurs, rubs or gallops, peripheral pulses normal and equal bilaterally. ABDOMEN: Soft, nontender, normoactive bowel sounds. No guarding, no rebound. No masses EXTREMITIES : Normal inspection, Normal range of motion, no edema. No clubbing or cyanosis NEUROLOGICAL: Cranial nerves II through XII grossly intact. Normal speech, no focal sensorimotor deficits BACK; + Healed 4-5 cm Lumbar incision scar, with absent fluctaucne. C/D/I. + L3- L5 ttp. Neg step-off or bony deformity. SKIN: Warm, Dry, normal turgor, no rashes or lesions noted ED Treatment Course - LABORATORY CBC & Chemistry Diagram: 08/04/19 17:25 08/04/19 17:25 - ADDITIONAL ORDERS Additional order review: Laboratory Results 08/04/19 08/04/19 08/04/19 19:35 17:25 17:25 Sodium 140 Potassium 3.6 Chloride 106 Carbon Dioxide 27 Anion Gap 7 L BUN 5.4 L Creatinine 0.6 Est GFR (CKD-EPI)AfAm 123.18 Est GFR (CKD-EPI)NonAf 106.28 Random Glucose 94 Calcium 9.4 Total Bilirubin 0.1 L AST 13 L ALT 25 Alkaline Phosphatase 101 Total Protein 7.1 Albumin 3.1 L Serum , Qual Negative Urine Color Yellow Urine Appearance Clear Urine pH 6.5 Ur Specific Percival 1.007 L Urine Protein Negative Urine Glucose (UA) Negative Urine Ketones Trace H Urine Blood Negative Urine Nitrite Negative Urine Bilirubin Negative Urine Urobilinogen 0.2 Ur Leukocyte Esterase Negative 08/04/19 17:25 RBC 3.13 L MCV 92.0 MCHC 32.9 RDW 15.7 H MPV 8.0 Neutrophils % 64.6 D Lymphocytes % 21.8 D Monocytes % 11.9 H Eosinophils % 0.5 Basophils % 1.2 - Medications Given in the ED: ED Medications Discontinued Medications Generic Name Dose Route Start Last Admin Trade Name Annetta PRN Reason Stop Dose Admin Acetaminophen 1,000 mg 08/04/19 18:00 08/04/19 18:22 Ofirmev Injection - IVPB 08/04/19 18:01 1,000 mg ONCE ONE Administration Hydromorphone HCl 1 mg 08/04/19 19:19 08/04/19 19:47 Dilaudid Injection - IVPUSH 08/04/19 19:20 1 mg ONCE ONE Administration Sodium Chloride 1,000 mls @ 1,000 mls/hr 08/04/19 18:01 08/04/19 18:23 Normal Saline - IV 08/04/19 19:00 1,000 mls/hr ASDIR STA Administration Medical Decision Making - Medical Decision Making 08/04/19 23:01 49 yo F with h/o L3-L5 laminectomy (07/23/19), who p/w lower back pain, nausea without vomiting, and diarrhea. Vitals wnl, AF. A&Ox3. Pt, endorsed by Dr. Horn. Patient with recent L3-L5 Laminectomy with hardware removal and replacement, complicated with infection requiring surgical washout 07/23-. Physical exam notable for pain over lumbar incision site, and lower abdominal ttp. absent evidence surgical site infection. Denies new sensory changes, weakness, perianal or saddle parasthesia. Patient neurologically intact. Patient unable to ambulate assisted. Ed Course: CTAP: No acute change CBC,CMP: Unremarkable 08/05/19 00:55 Pt. admitted for inability to walk, and intractable pain Discharge - Discharge Information Problems reviewed: Yes Clinical Impression/Diagnosis: Unable to ambulate, Intractable low back pain, Abdominal pain, Back pain - Admission Yes - Follow up/Referral Referrals: Aleksandra Delaney MD [Primary Care Provider] - - Patient Discharge Instructions - Post Discharge Activity
[2019-08-04] MEDS ORDERED: DAPTOMYCIN 450 MG in SODIUM CHLORIDE 50 ML IVPB ONE (23:25)
[2019-08-04] MEDS ORDERED: CEFEPIME HCL/D5W 2 GM/50 ML BAG IVPB ONE (23:25)
[2019-08-04] MEDS ORDERED: CEFEPIME 2 GM in DEXTROSE 5%-WATER 100 ML IVPB ONE (23:45)
--- NOTE | 2019-08-05 00:10 | PN ---
Teaching Attending Note Name of Resident: Lore Singh ATTENDING PHYSICIAN STATEMENT I saw and evaluated the patient. I reviewed the resident's note and discussed the case with the resident. I agree with the resident's findings and plan as documented. SUBJECTIVE: Patient is a 49 year old woman with a PMH of Chronic back pain with previous L3- L5 laminectomy that was surgically revised with replacement of hardware [address] Schmitz - presents to the ER with acute on chronic back pain with radiation to the left anterior thigh and leg. She currently has a right PICC line for Daptomycin and Cefepime. Per the patient, pain started while at rest. She last took dilaudid 2 mg PO at 12 pm without relief of the pain. Denies fevers, chills, SOB, chest pain, nausea, headache, vomiting, dysuria, hematuria , urinary incontinence, michael-anal anesthesia, bowel incontinence, or ataxia. Has been on Miralax and had 3 loose BMs today with lower abdominal discomfort. She takes oxycodone, percocet, dilaudid, and baclofen for pain management. She is followed by Dr. Schmitz. In addition, she complains of lower abdominal pain that is bilateral and is acute on chronic. Has FH of DM. OBJECTIVE: Alert Vital Signs Period Temp Pulse Resp BP Sys/Mcnamara Pulse Ox Last 24 Hr 98.7 F 107 18 117/74 100 HEENT: No Jaundice, eye redness or discharge, PERRLA, EOMI. Normocephalic, atraumatic. External ears are normal and hearing is grossly intact. No nasal discharge. Neck: Supple, nontender. No palpable adenopathy or thyromegaly. No JVD Chest: Good effort. Clear to auscultation and percussion. Heart: Regular. No S3, rub or murmur Abdomen: Not distended, soft, nontender and no HSM. No rebound or guarding. Normal bowel sounds. Ext: Peripheral pulses intact. No leg edema. Tenderness around surgical wound, mild swelling but no erythema or drainage. Skin: Warm and dry. No petechiae, rash or ecchymosis. Neuro: Alert. Oriented x3. CN 2-12 grossly intact. Numbness in LLE; DTR are symmetric. Gait cannot be tested for safety reasons. Psych: Appropriate mood and affect. Good insight. Home Medications Medication Instructions Recorded Baclofen 5 mg PO BID 07/22/19 Dexlansoprazole [Dexilant -] 60 mg PO DAILY 07/22/19 HYDROmorphone [Dilaudid -] 2 mg PO Q4H PRN 07/22/19 Fluticasone/Salmeterol [Advair 1 each IH PRN PRN 07/23/19 250-50 Diskus] Oxycodone HCl/Acetaminophen 1 - 2 tab PO Q6H PRN #20 tab MDD 8 07/24/19 [Percocet 5-325 mg Tablet] Albuterol 0.083% Nebulizer Sakina 1 amp NEB Q4H PRN amp 07/30/19 [Ventolin 0.083% Nebulizer Soln -] Cefepime [Maxipime (Restricted To 2 gm IVPB BID #70 vial 07/30/19 Id) -] Daptomycin [Cubicin (Restricted 450 mg IV DAILY #35 vial 07/30/19 To Id) -] Polyethylene Glycol 3350 [Miralax 17 gm PO DAILY PRN bottle 07/30/19 119 gm Btl -] Abnormal Lab Results 08/04/19 08/04/19 08/04/19 17:25 17:25 19:35 RBC 3.13 L Hgb 9.5 L Hct 28.8 L D RDW 15.7 H Plt Count 437 H Monocytes % 11.9 H Anion Gap 7 L BUN 5.4 L Total Bilirubin 0.1 L AST 13 L Albumin 3.1 L Ur Specific [place] 1.007 L Urine Ketones Trace H ASSESSMENT AND PLAN: 1. Intractable back pain post surgery - ER staff consulted her neurosurgeon who recommended continued pain control. If pain persists, will consider ?bone scan to rule out diskitis or vertebral osteomyelitis - or MRI if the hardware in her back is compatible?. CT abdomen/pelvis with IV contrast showed inguinal lympadenopathy, left renal cyst and fluid in the cul-de-sac. No significant flud collection or new air collection noted around surgical site. Will continue current control regime, consult ID, Pain management and PT. Hold miralax, send stool for C.diff, leukocytes, ova and parasites. Consult GI if diarrhea persists. EKG shows NSR with no ischemic changes. Will continue comprehensive care for all of patients comorbid conditions. 2. Hypoalbuminemia - Possibly due to combined effects of malnutrition and inflammation associated with comorbid chronic conditions. Will ensure adequate dietary protein intake and also consult petroleum production engineer. 3. Anemia - Likely multifactorial. Will do basic anemia work up including serial stool guaiacs, reticulocyte count and iron studies. 4. DVT prophylaxis - Lovenox 40 mg SQ q 24 hours. 5. Advance directives - Full code
[2019-08-05] MEDS ORDERED: METOCLOPRAMIDE HCL INJECTION 10 MG/2 ML VIAL IVPUSH ONE (00:19)
[2019-08-05] MEDS ORDERED: METOCLOPRAMIDE HCL INJECTION 10 MG/2 ML VIAL ONE (00:21)
[2019-08-05] MEDS ORDERED: ALBUTEROL SO4 0.083% IH SOL 2.5 MG/3 ML VIAL.NEB. NEB PRN ×2 (03:46→08:38)
[2019-08-05] MEDS: SODIUM CHLORIDE 1,000 ML IV SCH ×2 (04:55→19:57)
--- NOTE | 2019-08-05 07:03 | HP ---
CHIEF COMPLAINT: persistent back pain PCP: Dr Delaney HISTORY OF PRESENT ILLNESS: 49 y/o F with PMH of asthma and chronic back pain s/p L3-L5 laminectomy with revision [address] Schmitz also s/p surgical washout on for infectious concerns presented to ED because acute on chronic back pain with radiation to the left anterior thigh&leg and diarrhea. The pain is dull and radiating to ankle and constant in nature. Associated with stiffness and numbness though pt admits that numbness was one of her symptoms prior to surgery.pain meds decreases the pain and laying on the left side aggravates it. Rates the pain 8/10 in severity. Pt endorses nausea only with food and denies any vomiting. She denies any acute worsening of left leg weakness/numbness, bladder/bowel incontinence, fevers, chills, SOB, chest pain, nausea, headache, vomiting, dysuria, hematuria,michael-anal anesthesia,or ataxia.She last took dilaudid 2 mg PO at 12 pm without relief of the pain.She takes oxycodone, percocet, dilaudid, and baclofen for pain management. Concurrently, Pt developed 3 loose BMs today with lower abdominal discomfort. Has been on Miralax and she is currently receiving Daptomycin and Cefepime through a right PICC line for the post surgical wound infection. ER course was notable for: (1)CBC and CMP , UA negative. cdiff sent (2) neurosurg Dr Schmitz consulted and states that its unlikely that she will need another CT as she is likely having post operative pain (3) CT abdomen/pelvis with IV contrast showed inguinal lympadenopathy, left renal cyst and fluid in the cul-de-sac. No significant flud collection or new air collection noted around surgical site Recent Travel: none PAST MEDICAL HISTORY: as above PAST SURGICAL HISTORY: as above plus myomectomies and partial hysterectomy 2/2 endometriosis Social History: Smoking:denies Alcohol: social drinker Drugs: denies Allergies latex Allergy (Verified 08/04/19 17:15) "rash from tape" No Known Drug Allergies Allergy (Verified 08/04/19 17:15) HOME MEDICATIONS: Home Medications Medication Instructions Recorded Baclofen 5 mg PO BID 07/22/19 Dexlansoprazole [Dexilant -] 60 mg PO DAILY 07/22/19 HYDROmorphone [Dilaudid -] 2 mg PO Q4H PRN 07/22/19 Fluticasone/Salmeterol [Advair 1 each IH PRN PRN 07/23/19 250-50 Diskus] Oxycodone HCl/Acetaminophen 1 - 2 tab PO Q6H PRN #20 tab MDD 8 07/24/19 [Percocet 5-325 mg Tablet] Albuterol 0.083% Nebulizer Sakina 1 amp NEB Q4H PRN amp 07/30/19 [Ventolin 0.083% Nebulizer Soln -] Cefepime [Maxipime (Restricted To 2 gm IVPB BID #70 vial 07/30/19 Id) -] Daptomycin [Cubicin (Restricted 450 mg IV DAILY #35 vial 07/30/19 To Id) -] Polyethylene Glycol 3350 [Miralax 17 gm PO DAILY PRN bottle 07/30/19 119 gm Btl -] REVIEW OF SYSTEMS CONSTITUTIONAL: generalized weakness,loss of appetite Absent: fever, chills, diaphoresis, malaise, weight change HEENT: Absent: rhinorrhea, nasal congestion, throat pain, throat swelling, difficulty swallowing, mouth swelling, ear pain, eye pain, visual changes CARDIOVASCULAR: Absent: chest pain, syncope, palpitations, irregular heart rate, lightheadedness , peripheral edema RESPIRATORY: Absent: cough, shortness of breath, dyspnea with exertion, orthopnea, wheezing, stridor, hemoptysis GASTROINTESTINAL:abdominal pain, nausea,diarrhea Absent: abdominal distension, vomiting, constipation, melena, hematochezia GENITOURINARY: vaginal itchiness Absent: dysuria, frequency, urgency, hesitancy, hematuria, flank pain, genital pain MUSCULOSKELETAL: back pain Absent: myalgia, arthralgia, joint swelling , neck pain SKIN: Absent: rash, itching, pallor HEMATOLOGIC/IMMUNOLOGIC: Absent: easy bleeding, easy bruising, lymphadenopathy, frequent infections ENDOCRINE: Absent: unexplained weight gain, unexplained weight loss, heat intolerance, cold intolerance NEUROLOGIC: headache, focal weakness or paresthesias Absent:dizziness, unsteady gait, seizure, mental status changes, bladder or bowel incontinence PSYCHIATRIC: Absent: anxiety, depression, suicidal or homicidal ideation, hallucinations. PHYSICAL EXAMINATION Vital Signs - 24 hr 08/04/19 08/05/19 08/05/19 17:11 01:41 02:27 Temperature 98.7 F 99 F Pulse Rate 107 H 104 H Pulse Rate [ 95 H Left] Respiratory 18 18 18 Rate Blood Pressure 117/74 102/58 L Blood Pressure 123/83 [Left Arm] O2 Sat by Pulse 100 100 Oximetry (%) 08/05/19 08/05/19 04:25 06:02 Temperature 98.6 F Pulse Rate 101 H Pulse Rate [ Left] Respiratory 18 20 Rate Blood Pressure 136/86 Blood Pressure [Left Arm] O2 Sat by Pulse 100 Oximetry (%) GENERAL: Awake, alert, and fully oriented, in mod distress. HEAD: Normal with no signs of trauma. EYES: Pupils equal, round and reactive to light, extraocular movements intact, sclera anicteric, conjunctiva clear. No lid lag. EARS, NOSE, THROAT: oropharynx clear without exudates. slightly dry mucous membranes. NECK: Normal range of motion, supple without lymphadenopathy, JVD, or masses. LUNGS: Breath sounds equal, clear to auscultation bilaterally. No wheezes, and no crackles. No accessory muscle use. HEART: Regular rate and rhythm, normal S1 and S2 without murmur, rub or gallop. ABDOMEN: Soft, lower abdominal tenderness, not distended, normoactive bowel sounds, no guarding, no rebound, no masses. No hepatomegaly or splenomegaly. MUSCULOSKELETAL: Normal range of motion at all joints. parasurgical tenderness and swelling UPPER EXTREMITIES: 2+ pulses, warm, well-perfused. No cyanosis. No clubbing. No peripheral edema. LOWER EXTREMITIES: 2+ pulses, warm, well-perfused. No calf tenderness. No peripheral edema. NEUROLOGICAL: Cranial nerves II-XII intact. Normal speech. motor 5/5 except for left hip flexion 3/5 and sensation reduced PSYCHIATRIC: Cooperative. Good eye contact. Appropriate mood and affect. SKIN: Warm, surgical wound in lumbar region and midline. tender on palpation directly and para. no fluctuantion noded. erythematous Laboratory Results - last 24 hr 08/04/19 08/04/19 08/04/19 17:25 17:25 17:25 WBC 7.9 RBC 3.13 L Hgb 9.5 L Hct 28.8 L D MCV 92.0 MCH 30.3 MCHC 32.9 RDW 15.7 H Plt Count 437 H MPV 8.0 Absolute Neuts (auto) 5.1 Neutrophils % 64.6 D Lymphocytes % 21.8 D Monocytes % 11.9 H Eosinophils % 0.5 Basophils % 1.2 Nucleated RBC % 0 Sodium 140 Potassium 3.6 Chloride 106 Carbon Dioxide 27 Anion Gap 7 L BUN 5.4 L Creatinine 0.6 Est GFR (CKD-EPI)AfAm 123.18 Est GFR (CKD-EPI)NonAf 106.28 Random Glucose 94 Calcium 9.4 Total Bilirubin 0.1 L AST 13 L ALT 25 Alkaline Phosphatase 101 Total Protein 7.1 Albumin 3.1 L Serum , Qual Negative Urine Color Urine Appearance Urine pH Ur Specific [place] Urine Protein Urine Glucose (UA) Urine Ketones Urine Blood Urine Nitrite Urine Bilirubin Urine Urobilinogen Ur Leukocyte Esterase 08/04/19 19:35 WBC RBC Hgb Hct MCV MCH MCHC RDW Plt Count MPV Absolute Neuts (auto) Neutrophils % Lymphocytes % Monocytes % Eosinophils % Basophils % Nucleated RBC % Sodium Potassium Chloride Carbon Dioxide Anion Gap BUN Creatinine Est GFR (CKD-EPI)AfAm Est GFR (CKD-EPI)NonAf Random Glucose Calcium Total Bilirubin AST ALT Alkaline Phosphatase Total Protein Albumin Serum , Qual Urine Color Yellow Urine Appearance Clear Urine pH 6.5 Ur Specific [place] 1.007 L Urine Protein Negative Urine Glucose (UA) Negative Urine Ketones Trace H Urine Blood Negative Urine Nitrite Negative Urine Bilirubin Negative Urine Urobilinogen 0.2 Ur Leukocyte Esterase Negative ASSESSMENT/PLAN: 49 y/o F with PMH of asthma and chronic back pain s/p L3-L5 laminectomy with revision [address] Schmitz also s/p surgical washout on for infectious concerns presented to ED because acute on chronic back pain with radiation to the left anterior thigh&leg and diarrhea. Admitted for acute on chronic back pain and poss C. diff colitis Acute on chronic back pain possible infection cont pain control Neurosurgery Dr Schmitz consulted PT for rehabilitation and strength neuro checks Q6h ID consult Dr Thomason Acute Diarrhea patient currently on antibiotics and miralax c diff antigen and toxin sent stool WBC and culture {refer for routine colonoscopy pt is 49} NS@75cc/h Anemia basic work up sent Asthma albuterol PRN DVT lovenox Visit type - Emergency Visit Emergency Visit: Yes ED Registration Date: 08/04/19 Care time: The patient presented to the Emergency Department on the above date and was hospitalized for further evaluation of their emergent condition. - New Patient This patient is new to me today: Yes Date on this admission: 08/05/19 - Critical Care Critical Care patient: No ATTENDING PHYSICIAN STATEMENT I saw and evaluated the patient. I reviewed the resident's note and discussed the case with the resident. I agree with the resident's findings and plan as documented. SUBJECTIVE: OBJECTIVE: ASSESSMENT AND PLAN:
[2019-08-05] MEDS: oxyCODONE HCL 5 MG TABLET PO PRN ×3 (08:13→23:22)
[2019-08-05] MEDS: ACETAMINOPHEN 325 MG TABLET (FP) PO PRN ×3 (08:14→23:21)
[2019-08-05 08:29] LABS: BASO % 1.1 % (0-2.0); EOS % 0.9 % (0-4.5); HEMATOCRIT 27.5 % (32.4-45.2); LYMPH % 26.8 % (8-40); MCH 30.3 pg (25.7-33.7); MCHC 32.9 g/dl (32.0-36.0); MEAN PLT VOLUME 8.7 fl (7.5-11.1); MONO % 11.4 % (3.8-10.2); NEUT % 59.8 % (42.8-82.8); PLATELET COUNT 418 K/MM3 (134-434); RBC 2.98 M/mm3 (3.60-5.2)
[2019-08-05] MEDS ORDERED: POLYETHYLENE GLYCOL 3350 119 GM BTL PO PRN (08:38)
[2019-08-05 08:56] LABS: BLOOD UREA NITROGEN 4.3 mg/dL (7-18); CALCIUM 9.1 mg/dL (8.5-10.1); CREATININE 0.7 mg/dL (0.55-1.3); MAGNESIUM 1.9 mg/dL (1.8-2.4); PHOSPHOROUS 3.9 mg/dL (2.5-4.9); POTASSIUM 3.5 mmol/L (3.5-5.1)
[2019-08-05] MEDS: PANTOPRAZOLE 40 MG TABLET (FP) PO SCH (09:52)
[2019-08-05] MEDS: ENOXAPARIN NA (PORCINE) 40 MG/0.4 ML DISP.SYRIN SQ SCH (09:52)
[2019-08-05] MEDS: BACLOFEN 10 MG TABLET (FP) PO SCH ×2 (09:52→22:54)
[2019-08-05] MEDS: BUDESONIDE/FORMETEROL FUMARATE 80/4.5 mcg INHALER IH SCH ×2 (09:56→22:12)
[2019-08-05] MEDS ORDERED: GABAPENTIN 300 MG CAPSULE (FP) PO SCH (10:00)
--- NOTE | 2019-08-05 10:52 | PN ---
Progress Note (short form) - Note Progress Note: ID consult dictated 49 yo female s/p lumbar laminectomy revision 07/24-she developed high grade post op fevers and urinary retention, went back for surgical washout on 07/27, high inflammatory markers and gram stain with PMNS- she had received broadspectrum antiiboitcs and the decision was made to treat her with 6 weeks of iv antibioitics via picc line she was discharged on last week after surgical drain was removed reports chills since Saturday night and diarrhea since yesterday total of 6 bouts of nonbloody diarrhea, no vomiting, no sick contacts unchanged lower abdomnal discomfort that has been present since last admission back pain and leg pain persistent since discharge and unchanged denies miralax use at home got daptomycin and cefepime this am stool cdiff sent and pending diarrhea- r/o cdiff, if negative would start probiotics persistent lower abdominal discomfort s/p lumbar laminectomy revision with washout 07/24, 07/27 repeat esr/crp continue daptomycin and cefepime check cpk blood cultures no signs of wound infection picc line or surgical incision Problem List - Problems (1) Diarrhea Code(s): R19.7 - DIARRHEA, UNSPECIFIED (2) S/P lumbar fusion Code(s): Z98.1 - ARTHRODESIS STATUS
[2019-08-05 11:20] LABS: RETICULOCYTES 2.15 % (0.5-1.5)
--- NOTE | 2019-08-05 12:11 | EKG ---
Test Reason : Blood Pressure : / mmHG Vent. Rate : 075 BPM Atrial Rate : 075 BPM P-R Int : 140 ms QRS Dur : 072 ms QT Int : 390 ms P-R-T Axes : 027 046 014 degrees QTc Int : 435 ms POOR DATA QUALITY, INTERPRETATION MAY BE ADVERSELY AFFECTED NORMAL SINUS RHYTHM WITH SINUS ARRHYTHMIA NORMAL ECG WHEN COMPARED WITH ECG OF 25-JUL-2019 06:26, VENT. RATE HAS DECREASED BY 54 BPM Confirmed by MITUL JONES, GEREMIAS ([id number]) on 08/05/2019 12:11:14 PM Referred By: Confirmed By:GEREMIAS BAUMAN MD
[2019-08-05] MEDS ORDERED: LACTOBACILLUS ACIDOPHILUS 1 TABLET PO SCH (15:30)
--- NOTE | 2019-08-05 15:46 | PN ---
Teaching Attending Note Name of Resident: Marlin Baez ATTENDING PHYSICIAN STATEMENT I saw and evaluated the patient. I reviewed the resident's note and discussed the case with the resident. I agree with the resident's findings and plan as documented. SUBJECTIVE: cont to have lower abd pain , which is not changed since last admission. has lower back pain and LLE pain which also has not changed. complains of diarrhea that brought her here. chills and sweats at home OBJECTIVE: NAD. CV: RRR, no MRG Lungs: CATB Abd: soft, TTP in suprapubic area, no rebound tenderness today. NL BS Ext: no edema or erythema on upper or lower ext. Neuro of LE: RLE: hip flexion 5/5 , knee flexion 5/5 and knee extension 5/5. ankle dorsiflexion and plantar flexion 5/5 . LLE: hip flexion 4/5, knee flexion 5/5 and knee extension 5/5. ankle dorsiflexion and plantar flexion 5/5 . Sensation to light touch decreased on LLE . Knee jerk 1+ on L and 2+ on R lumbar surgical wound with no drainage or surrounding erythema ASSESSMENT AND PLAN: 49 y/o lady with h/o asthma, GERD, fibroids s/p hysterectomy, and low back pain and spinal stenossi s/p revisionand fusion 07/23 with complicationof infected wound s/p debridment 07/27 who presented with diarrhea 1- Diarrhea, likely side effect of Abx. Abd exam did not change from prior admission and C diff neg. CT of Abd/pelvis is unremarkable - start BAcid - IVF for hydration - cont diet - follow stool cx 2- H/o recent lumbar surgical wound infection : - cont cefepime and dapto - ESR and CRP are impropved compared to last admission - CK nl 3- H/o spinal stenosis s/p revisionand fusion L3-S1 07/23. - cont oxy - neuro sx to evaluate wound - start low dose neurontin 4- Chronic normocytic anemia: iron studies don't indicate iron def. check B12 and folate. rest of W/u as out pt 5- Incidental finding of L renal cyst. f/u as out pt 6- prominent b/l inguinal lymph nodes. will do a full lymphatic system exam in am .
--- NOTE | 2019-08-05 19:03 | PN ---
Physical Exam: SUBJECTIVE: Patient seen and examined in the morning. Patient had no acute events overnight but was not getting pain medication. Had 1 bowel movement since getting admitted, non bloody, but it was diarrhea; patient also complains of lower abdominal pain, and back pain with leg pain. Denies fever, chills, chest pain, and shortness of breath. OBJECTIVE: Vital Signs Period Temp Pulse Resp BP Sys/Mcnamara Pulse Ox Last 24 Hr 98.6 F-99 F 95-104 16-20 102-136/58-86 100-100 GENERAL: The patient is awake, alert, and fully oriented, in distress, patient is lying supine. HEAD: Normal with no signs of trauma. EYES: PERRL, extraocular movements intact, sclera anicteric, conjunctiva clear. NECK: Trachea midline, full range of motion, supple. LUNGS: Breath sounds equal, clear to auscultation bilaterally, no wheezes, no crackles, no accessory muscle use. HEART: Regular rate and rhythm, S1, S2 without murmur, rub or gallop. ABDOMEN: Soft, nontender, nondistended, normoactive bowel sounds, no guarding. EXTREMITIES: 2+ pulses, warm, well-perfused, no edema. Patient is able to feel examiners hands throughout dermatome levels on extremities. NEUROLOGICAL: Cranial nerves II through XII grossly intact. Normal speech, Skin: Surgical wound in lumbar region and midline. Non erythematous Laboratory Results - last 24 hr 08/04/19 08/05/19 08/05/19 19:35 07:45 07:45 WBC 8.0 RBC 2.98 L Hgb 9.0 L Hct 27.5 L MCV 92.0 MCH 30.3 MCHC 32.9 RDW 16.0 H Plt Count 418 MPV 8.7 Absolute Neuts (auto) 4.8 Neutrophils % 59.8 Lymphocytes % 26.8 D Monocytes % 11.4 H Eosinophils % 0.9 Basophils % 1.1 Nucleated RBC % 0 ESR Retic Count 2.15 H Sodium 142 Potassium 3.5 Chloride 109 H Carbon Dioxide 25 Anion Gap 8 BUN 4.3 L Creatinine 0.7 Est GFR (CKD-EPI)AfAm 117.09 Est GFR (CKD-EPI)NonAf 101.02 Random Glucose 103 Calcium 9.1 Phosphorus 3.9 Magnesium 1.9 Iron TIBC Iron Saturation Unsaturated IBC Ferritin Creatine Kinase 26 C-Reactive Protein 2.6 H Urine Color Yellow Urine Appearance Clear Urine pH 6.5 Ur Specific [place] 1.007 L Urine Protein Negative Urine Glucose (UA) Negative Urine Ketones Trace H Urine Blood Negative Urine Nitrite Negative Urine Bilirubin Negative Urine Urobilinogen 0.2 Ur Leukocyte Esterase Negative Stool Occult Blood 08/05/19 08/05/19 08/05/19 07:45 07:45 10:15 WBC RBC Hgb Hct MCV MCH MCHC RDW Plt Count MPV Absolute Neuts (auto) Neutrophils % Lymphocytes % Monocytes % Eosinophils % Basophils % Nucleated RBC % ESR 94 H Retic Count Sodium Potassium Chloride Carbon Dioxide Anion Gap BUN Creatinine Est GFR (CKD-EPI)AfAm Est GFR (CKD-EPI)NonAf Random Glucose Calcium Phosphorus Magnesium Iron 37 L TIBC 417 Iron Saturation 8 L Unsaturated IBC 380 H Ferritin 118.7 Creatine Kinase C-Reactive Protein Urine Color Urine Appearance Urine pH Ur Specific [place] Urine Protein Urine Glucose (UA) Urine Ketones Urine Blood Urine Nitrite Urine Bilirubin Urine Urobilinogen Ur Leukocyte Esterase Stool Occult Blood Positive Active Medications Generic Name Dose Route Start Last Admin Trade Name Freq PRN Reason Stop Dose Admin Acetaminophen 325 mg 08/05/19 07:55 08/05/19 17:34 Tylenol - PO 325 mg Q6H PRN Administration PAIN 6-10 Albuterol Sulfate 1 amp 08/05/19 08:38 Ventolin 0.083% Nebulizer Soln - NEB Q4H PRN SHORT OF BREATH/WHEEZING Baclofen 5 mg 08/05/19 10:00 08/05/19 09:52 Lioresal - PO 5 mg BID NEFTALY Administration Budesonide/Formoterol Fumarate 2 puff 08/05/19 10:00 08/05/19 09:56 Symbicort 80/4.5mcg - IH Not Given BID NEFTALY Enoxaparin Sodium 40 mg 08/05/19 10:00 08/05/19 09:52 Lovenox - SQ 40 mg DAILY NEFTALY Administration Gabapentin 100 mg 08/05/19 22:00 Neurontin - PO BID NEFTALY Sodium Chloride 1,000 mls @ 75 mls/hr 08/05/19 04:00 08/05/19 04:55 Normal Saline - IV 75 mls/hr ASDIR NEFTALY Administration Cefepime HCl 2 gm/ Dextrose 100 mls @ 100 mls/hr 08/05/19 22:00 IVPB BID NEFTALY Protocol Daptomycin 450 mg/ Sodium 50 mls @ 50 mls/hr 08/06/19 10:00 Chloride IVPB DAILY NEFTALY Protocol Lactobacillus Acidophilus 1 tab 08/05/19 17:30 Bacid - PO DAILY NEFTALY Oxycodone HCl 5 mg 08/05/19 07:55 08/05/19 17:33 Roxicodone - PO 5 mg Q6H PRN Administration PAIN 6-10 Pantoprazole Sodium 40 mg 08/05/19 10:00 08/05/19 09:52 Protonix - PO 40 mg DAILY NEFTALY Administration ASSESSMENT/PLAN: 49 F with PMH of asthma and chronic back pain s/p l3-l5 laminectomy with revision 1 week ago who presents with multiple episodes of diarrhea and acute back pain. 1)Diarrhea -C.Diff stool studies negative -Patient currently on antibiotics, could be source of infection -No nausea, no vomiting, no sick contacts, no one at home is experiencing diarrhea- enteritis is less likely -F/U stool culture -F/U blood culture -NS @ 75 ml/hr -ESR: 94, CRP: 2.6 -Continue Daptomycin 450 mg IV Daily -Continue Cefepime 2 gram IV Daily -ID consulted, appreciate recs 2)Acute on chronic back pain -Patient started on oxycodeone 5 mg PO q6H PRN -Baclofen 5 mg PO BID -Physical therapy -q6 neuro hecks -Component of pain is in legs-likely sciatica- will start Neurontin 100 mg BID -Neurosurgery consulted, appreciate recs 3) Asthma -Albuterol PRN 4)Anemia -chronic normocytic anemia -iron studies negstive -f/u vitamin b12 and folate levels F: NS @ 75ml E: Monitor CMP N: Regular diet DVT: lovenox 40 mg SQ Daily Dispo: admitted to medicine Visit type - Emergency Visit Emergency Visit: Yes ED Registration Date: 08/04/19 Care time: The patient presented to the Emergency Department on the above date and was hospitalized for further evaluation of their emergent condition. - New Patient This patient is new to me today: Yes Date on this admission: 08/05/19 - Critical Care Critical Care patient: No ATTENDING PHYSICIAN STATEMENT I saw and evaluated the patient. I reviewed the resident's note and discussed the case with the resident. I agree with the resident's findings and plan as documented. SUBJECTIVE: OBJECTIVE: ASSESSMENT AND PLAN:
--- NOTE | 2019-08-05 21:42 | CONS ---
INFECTIOUS DISEASE CONSULTATION DATE OF CONSULTATION: DATE OF DICTATION: 08/05/2019 REQUESTING PHYSICIAN: The hospitalist service. This is a 49-year-old woman status post lumbar laminectomy revision on July 24, who postoperatively developed high-grade fevers and urinary retention with very elevated inflammatory markers. She was subsequently taken back to the OR for a washout on July 27, and given the inflammatory markers and Gram stain with polys, she had received broad-spectrum antibiotics at the time of the washout. The decision was made to treat her with 6 weeks of IV antibiotics via PICC line. She was discharged on last after the surgical drain was removed. She reports at the time of discharge, she had continued back pain and leg pain which has persisted. She reports VNS came once to the house and has not returned. She has been doing her IV antibiotics, daptomycin and cefepime via her PICC line. She reports chills since Saturday night and 6 episodes of non-bloody diarrhea since yesterday. She has had no vomiting and no sick contacts. She has unchanged lower abdominal pain that has been present since the last admission. She denies MiraLAX use at home, and this morning, received daptomycin and cefepime in the emergency room. A stool C. difficile has been sent and is pending. ALLERGIES: She is allergic to LATEX. She has no other drug allergies. PAST MEDICAL HISTORY: Notable for asthma and the chronic back pain. She has had myomectomies and a partial hysterectomy secondary to endometriosis, and she has had multiple back surgeries, 3 prior to the recent surgery this month. SOCIAL HISTORY: She is a social drinker. No history of any substance use. She is currently out on disability, but was working prior to her back surgeries. MEDICATIONS AT HOME: Include baclofen, Dexilant, Dilaudid, Advair, Percocet, albuterol nebulizer. She was on cefepime 2 g b.i.d. which started last and daptomycin 450 daily. She was discharged on MiraLAX which she reported she was not taking. REVIEW OF SYSTEMS: Notable for the non-bloody diarrhea. She has had no appetite, but she has not had any vomiting, and she has had this lower abdominal discomfort, but she has been able to void. She has continued back pain that radiates down her leg, but she reports is unchanged. She also reports having had some chills over the last 48 hours. PHYSICAL EXAMINATION: Vital Signs: She is afebrile; temperature is 98.6. Pulse of 101, blood pressure 136/86, respiratory rate of 20. She is saturating 100% on room air. HEENT: She is normocephalic. Her eyes are anicteric. Neck: Supple. Lungs: Clear to auscultation. Heart: Regular rate and rhythm. Abdomen: Soft. She has some bilateral lower quadrant discomfort to palpation. Extremities: Without edema. Skin: Her incision is clean and dry without drainage. LABORATORY DATA: Labs are notable for a white count of 8000. Hemoglobin is 9. Platelets are 418. Chemistries: BUN is 4 and creatinine 0.7. Stool cultures and C. difficile are pending. She had a CAT scan of her abdomen and pelvis that is notable for no definite interval change, post-surgical changes of the lumbar spine. In summary, this is a 49-year-old woman status post recent back surgery on IV antibiotics, admitted with chills and non-bloody diarrhea. Would send her stool for evaluation, Clostridium difficile and stool cultures and white cells. Would order blood cultures as well. She is having chills. We will repeat a sedimentation rate, CRP. Continue the daptomycin and cefepime and will check a CPK. She has no signs at present of wound infection at the PICC line site or at the surgical incision. Case was discussed with the hospitalist. Further recommendations to follow. If her abdominal pain persists, this will need to be investigated. NARAYAN CHENG M.D. [id number]
[2019-08-05] MEDS ORDERED: PT OWN MED DRAWER 7, Y5N ONE (21:59)
[2019-08-05] MEDS: GABAPENTIN 100 MG CAPSULE (FP) PO SCH (22:02)
[2019-08-05] MEDS: CEFEPIME 2 GM in DEXTROSE 5%-WATER 100 ML IVPB SCH (22:02)
[2019-08-06] MEDS: ACETAMINOPHEN 325 MG TABLET (FP) PO PRN ×2 (08:48→22:05)
[2019-08-06] MEDS: oxyCODONE HCL 5 MG TABLET PO PRN ×2 (08:48→22:06)
[2019-08-06 09:09] LABS: EOS % 1.2 % (0-4.5); HEMATOCRIT 25.3 % (32.4-45.2); HEMOGLOBIN 8.4 GM/dL (10.7-15.3); LYMPH % 29.3 % (8-40); MCH 30.5 pg (25.7-33.7); MCHC 33.2 g/dl (32.0-36.0); MEAN CELL VOLUME 92.1 fl (80-96); MEAN PLT VOLUME 8.8 fl (7.5-11.1); MONO % 14.1 % (3.8-10.2); NEUT % 54.4 % (42.8-82.8); PLATELET COUNT 348 K/MM3 (134-434); RBC 2.74 M/mm3 (3.60-5.2); RDW 16.5 % (11.6-15.6); WHITE BLOOD COUNT 5.7 K/mm3 (4.0-10.0)
[2019-08-06] MEDS: DAPTOMYCIN 450 MG in SODIUM CHLORIDE 50 ML IVPB SCH (09:28)
[2019-08-06] MEDS ORDERED: LACTOBACILLUS ACIDOPHILUS 1 TABLET PO SCH (10:00)
[2019-08-06] MEDS: CEFEPIME 2 GM in DEXTROSE 5%-WATER 100 ML IVPB SCH ×2 (10:44→22:07)
[2019-08-06] MEDS ORDERED: PT OWN MED DRAWER 7, Y5N ONE ×2 (10:54→21:33)
[2019-08-06] MEDS: ENOXAPARIN NA (PORCINE) 40 MG/0.4 ML DISP.SYRIN SQ SCH (11:08)
[2019-08-06] MEDS: ONDANSETRON 4 MG/2 ML VIAL IVPB PRN ×2 (11:08→17:03)
[2019-08-06] MEDS: GABAPENTIN 100 MG CAPSULE (FP) PO SCH ×2 (11:09→22:06)
[2019-08-06] MEDS: PANTOPRAZOLE 40 MG TABLET (FP) PO SCH (11:09)
[2019-08-06] MEDS: BACLOFEN 10 MG TABLET (FP) PO SCH ×2 (11:09→22:06)
[2019-08-06] MEDS: BUDESONIDE/FORMETEROL FUMARATE 80/4.5 mcg INHALER IH SCH ×2 (11:10→22:07)
[2019-08-06] MEDS: LACTOBACILLUS ACIDOPHILUS 1 TABLET PO SCH (11:10)
[2019-08-06 11:38] LABS: ALBUMIN 2.7 g/dl (3.4-5.0); BILIRUBIN,TOTAL 0.2 mg/dL (0.2-1); CALCIUM 8.9 mg/dL (8.5-10.1); CREATININE 0.5 mg/dL (0.55-1.3); POTASSIUM 3.4 mmol/L (3.5-5.1)
[2019-08-06 12:09] LABS: BLOOD UREA NITROGEN 2.9 mg/dL (7-18)
[2019-08-06] MEDS: SODIUM CHLORIDE 1,000 ML IV SCH (13:45)
[2019-08-06] MEDS ORDERED: TRIMETHOBENZAMIDE HCL 200MG/2ML INJ IM PRN (14:04)
--- NOTE | 2019-08-06 15:39 | PN ---
Progress Note (short form) - Note Progress Note: now with formed stool belching with nausea no itching or rash no fevers Vital Signs Period Temp Pulse Resp BP Sys/Mcnamara Pulse Ox Last 24 Hr 97.9 F-98.8 F 60-100 20-20 120-133/72-82 100 cor-rrr lungs clear abd midepigastric discomfort to palpation less lower abdominal discomfort ext no edema CBC, BMP 08/06/19 07:45 08/06/19 07:45 Microbiology 08/05/19 11:48 Blood - Peripheral Venous Blood Culture - Preliminary NO GROWTH OBTAINED AFTER 24 HOURS, INCUBATION TO CONTINUE FOR 4 DAYS. 08/05/19 11:25 Blood - Peripheral Venous Blood Culture - Preliminary NO GROWTH OBTAINED AFTER 24 HOURS, INCUBATION TO CONTINUE FOR 4 DAYS. 08/05/19 10:15 Stool Salmonella/Shigella Culture - Preliminary Yeast Like Organism 08/05/19 10:15 Stool Yersinia Culture - Preliminary NO ENTERIC PATHOGENS, 24 HOURS, ON PRIMARY PLATES 08/05/19 10:15 Stool Vibrio Culture - Final NO GROWTH OF VIBRIO SPECIES OBTAINED 08/05/19 10:15 Stool Escherichia coli 0157 Culture - Final NO GROWTH OF E COLI 0157 OBTAINED 08/04/19 19:30 Urine - Urine Clean Catch Urine Culture - Final NO GROWTH OBTAINED 08/05/19 10:15 Stool Gram Stain - Final 08/05/19 06:20 Stool Clostridioides difficile Antigen - Final-negative 08/05/19 06:20 Stool Clostridioides difficile Toxin Assay - Final-negative Laboratory Tests 07/27/19 07/27/19 07/28/19 06:10 06:10 15:45 ESR 102 H C-Reactive Protein 27.3 H Vancomycin Pre-Dose 13.9 L 07/29/19 08/05/19 08/05/19 06:50 07:45 07:45 ESR 94 H C-Reactive Protein 12.2 H 2.6 H Vancomycin Pre-Dose a/p abdominal discomfort- per hospitalist service s/p lumbar laminectomy revision with washout 07/24, 07/27 continue daptomycin and cefepime inflammatory markers improved
--- NOTE | 2019-08-06 16:09 | PN ---
Teaching Attending Note Name of Resident: Marlin Nestor ATTENDING PHYSICIAN STATEMENT I saw and evaluated the patient. I reviewed the resident's note and discussed the case with the resident. I agree with the resident's findings and plan as documented. SUBJECTIVE: seen at 9 am No fever or chills. Had > 10 BM yesterday . feels nauseous today, did not eat breakfast OBJECTIVE: NAD. CV: RRR, no MRG Lungs: CATB Abd: soft, mild TTP in suprapubic area. NL BS Ext: no edema or erythema on upper or lower ext. Neuro of LE: RLE: hip flexion 5/5 , knee flexion 5/5 and knee extension 5/5. ankle dorsiflexion and plantar flexion 5/5 . LLE: hip flexion 4/5, knee flexion 5/5 and knee extension 5/5. ankle dorsiflexion and plantar flexion 5/5 . Sensation to light touch decreased on LLE . Knee jerk 1+ on L and 2+ on R lumbar surgical wound with no drainage or surrounding erythema. ASSESSMENT AND PLAN: 49 y/o lady with h/o asthma, GERD, fibroids s/p hysterectomy, and low back pain and spinal stenossi s/p revisionand fusion 07/23 with complicationof infected wound s/p debridment 07/27 who presented with diarrhea 1- Diarrhea, likely side effect of Abx. improved . but she is very nauseous with poor po intake. resident evaluation this afternoon indicates persistent nausea and epigastric pain. Possible viral gastroenteritis . - will get Lipase - give zofran PRN - change diet to full liquids for now - cont IVF - will assess in am - + OB in stool noted. Will perform rectal. her iron studies do not indicate iron def and this OB might not account for her anemia,. blood in stool could be due to ? colitis, enteritis , or other. will consider GI consult Inpatient vs out pt . 2- H/o recent lumbar surgical wound infection : - cont cefepime and dapto - d/w Dr. Self today 3- H/o spinal stenosis s/p revision and fusion L3-S1 07/23. - cont oxy - cont low dose neurontin 4- Chronic normocytic anemia: iron studies don't indicate iron def. B12 and folate NL. OB + as above 5- Incidental finding of L renal cyst. f/u as out pt 6- prominent b/l inguinal lymph nodes. will do a full lymphatic system exam in am . dispo : HLOC , due to poor po intake and persistent GI sx
--- NOTE | 2019-08-06 19:21 | PN ---
Physical Exam: SUBJECTIVE: Patient seen and examined in the morning. No acute events overnight. Has abdominal pain, and dry heaves throughout the day, has leg pain , no chest pain, no shortness of breath, no dysuria or urinary retention. OBJECTIVE: Vital Signs Period Temp Pulse Resp BP Sys/Mcnamara Pulse Ox Last 24 Hr 97.9 F-98.8 F 60-100 20-20 120-133/72-82 100 GENERAL: The patient is awake, alert, and fully oriented, in no acute distress. NECK: Trachea midline, full range of motion, supple. LUNGS: Breath sounds equal, clear to auscultation bilaterally, no wheezes, no crackles, no accessory muscle use. HEART: Regular rate and rhythm, S1, S2 without murmur, rub or gallop. ABDOMEN: Tender to palpation in all 4 quadrants. Non distended, no rebound tenderness. EXTREMITIES: 2+ pulses, warm, well-perfused, no edema. NEUROLOGICAL: Cranial nerves II through XII grossly intact. Full ROM in extremities. Back: Surgical wound is nonerythematous and healing. Laboratory Results - last 24 hr 08/06/19 08/06/19 07:45 07:45 WBC 5.7 RBC 2.74 L Hgb 8.4 L Hct 25.3 L MCV 92.1 MCH 30.5 MCHC 33.2 RDW 16.5 H Plt Count 348 MPV 8.8 Absolute Neuts (auto) 3.1 Neutrophils % 54.4 Lymphocytes % 29.3 Monocytes % 14.1 H Eosinophils % 1.2 Basophils % 1.0 Nucleated RBC % 0 Sodium 144 Potassium 3.4 L Chloride 110 H Carbon Dioxide 14 L Anion Gap 21 H BUN 2.9 L* Creatinine 0.5 L Est GFR (CKD-EPI)AfAm 130.79 Est GFR (CKD-EPI)NonAf 112.85 Random Glucose 99 Calcium 8.9 Total Bilirubin 0.2 AST 12 L ALT 22 Alkaline Phosphatase 90 Total Protein 6.0 L Albumin 2.7 L Vitamin B12 657 Serum Folate 14 Active Medications Generic Name Dose Route Start Last Admin Trade Name Freq PRN Reason Stop Dose Admin Acetaminophen 325 mg 08/05/19 07:55 08/06/19 08:48 Tylenol - PO 325 mg Q6H PRN Administration PAIN 6-10 Albuterol Sulfate 1 amp 08/05/19 08:38 Ventolin 0.083% Nebulizer Soln - NEB Q4H PRN SHORT OF BREATH/WHEEZING Baclofen 5 mg 08/05/19 10:00 08/06/19 11:09 Lioresal - PO Not Given BID [facility] Budesonide/Formoterol Fumarate 2 puff 08/05/19 10:00 08/06/19 11:10 Symbicort 80/4.5mcg - IH Not Given BID NEFTALY Enoxaparin Sodium 40 mg 08/05/19 10:00 08/06/19 11:08 Lovenox - SQ 40 mg DAILY NEFTALY Administration Gabapentin 100 mg 08/05/19 22:00 08/06/19 11:09 Neurontin - PO Not Given BID NEFTALY Sodium Chloride 1,000 mls @ 75 mls/hr 08/05/19 04:00 08/06/19 13:45 Normal Saline - IV 75 mls/hr ASDIR NEFTALY Administration Cefepime HCl 2 gm/ Dextrose 100 mls @ 100 mls/hr 08/05/19 22:00 08/06/19 10: 44 IVPB 100 mls/hr BID NEFTALY Administration Protocol Daptomycin 450 mg/ Sodium 50 mls @ 50 mls/hr 08/06/19 10:00 08/06/19 09:28 Chloride IVPB 50 mls/hr DAILY NEFTALY Administration Protocol Lactobacillus Acidophilus 1 tab 08/05/19 17:30 08/06/19 11:10 Bacid - PO Not Given DAILY [facility] Ondansetron HCl 8 mg 08/06/19 10:50 08/06/19 17:03 Zofran Injection IVPB 8 mg Q6H PRN Administration NAUSEA Oxycodone HCl 5 mg 08/05/19 07:55 08/06/19 08:48 Roxicodone - PO 5 mg Q6H PRN Administration PAIN 6-10 Pantoprazole Sodium 40 mg 08/05/19 10:00 08/06/19 11:09 Protonix - PO Not Given DAILY [facility] Trimethobenzamide HCl 200 mg 08/06/19 14:04 Tigan Injection - IM Q8H PRN NAUSEA ASSESSMENT/PLAN: 49 F with PMH of asthma and chronic back pain s/p l3-l5 laminectomy with revision 1 week ago who presents with multiple episodes of diarrhea and acute back pain. 1)Diarrhea -Resolving, stools are becoming soft solids now. -C.Diff stool studies negative -Patient currently on antibiotics, could be source of infection -No nausea, no vomiting, no sick contacts, no one at home is experiencing diarrhea- enteritis is less likely -F/U stool culture -F/U blood culture -NS @ 75 ml/hr -ESR: 94, CRP: 2.6 -Continue Daptomycin 450 mg IV Daily -Continue Cefepime 2 gram IV Daily -ID consulted, appreciate recs -High level of care required due to poor PO intake and GI symptoms 2)Acute on chronic back pain -Patient started on oxycodeone 5 mg PO q6H PRN -Baclofen 5 mg PO BID -Physical therapy -q6 neuro hecks -Component of pain is in legs-likely sciatica- will start Neurontin 100 mg BID -Neurosurgery consulted, appreciate recs 3) Nausea IV Zofran 8mg Q4 PRN IV Tigan 200 mg Q8 PRN 4) Asthma -Albuterol PRN 5)Anemia -chronic normocytic anemia -iron studies negstive -f/u vitamin b12 and folate levels F: NS @ 75ml E: Monitor CMP N: Regular diet DVT: lovenox 40 mg SQ Daily Dispo: admitted to medicine Visit type - Emergency Visit Emergency Visit: Yes ED Registration Date: 08/04/19 Care time: The patient presented to the Emergency Department on the above date and was hospitalized for further evaluation of their emergent condition. - New Patient This patient is new to me today: No - Critical Care Critical Care patient: No ATTENDING PHYSICIAN STATEMENT I saw and evaluated the patient. I reviewed the resident's note and discussed the case with the resident. I agree with the resident's findings and plan as documented. SUBJECTIVE: OBJECTIVE: ASSESSMENT AND PLAN:
[2019-08-07] MEDS: SODIUM CHLORIDE 1,000 ML IV SCH (05:14)
[2019-08-07] MEDS: ACETAMINOPHEN 325 MG TABLET (FP) PO PRN ×2 (08:40→23:39)
[2019-08-07] MEDS: ONDANSETRON 4 MG/2 ML VIAL IVPB PRN (08:46)
[2019-08-07 09:02] LABS: EOS % 1.2 % (0-4.5); HEMATOCRIT 24.9 % (32.4-45.2); HEMOGLOBIN 8.4 GM/dL (10.7-15.3); LYMPH % 26.1 % (8-40); MCH 30.7 pg (25.7-33.7); MCHC 33.6 g/dl (32.0-36.0); MEAN CELL VOLUME 91.5 fl (80-96); MEAN PLT VOLUME 8.7 fl (7.5-11.1); MONO % 14.7 % (3.8-10.2); PLATELET COUNT 341 K/MM3 (134-434); RBC 2.73 M/mm3 (3.60-5.2); RDW 16.1 % (11.6-15.6); WHITE BLOOD COUNT 6.3 K/mm3 (4.0-10.0)
[2019-08-07] MEDS ORDERED: PT OWN MED DRAWER 7, Y5N ONE ×4 (09:50→23:51)
[2019-08-07] MEDS: CEFEPIME 2 GM in DEXTROSE 5%-WATER 100 ML IVPB SCH ×2 (09:56→23:41)
[2019-08-07] MEDS: LACTOBACILLUS ACIDOPHILUS 1 TABLET PO SCH ×3 (09:57→23:41)
[2019-08-07] MEDS: ENOXAPARIN NA (PORCINE) 40 MG/0.4 ML DISP.SYRIN SQ SCH (09:57)
[2019-08-07] MEDS: PANTOPRAZOLE 40 MG TABLET (FP) PO SCH (09:58)
[2019-08-07] MEDS: GABAPENTIN 100 MG CAPSULE (FP) PO SCH ×2 (09:59→23:41)
[2019-08-07] MEDS: BUDESONIDE/FORMETEROL FUMARATE 80/4.5 mcg INHALER IH SCH ×3 (10:03→23:49)
[2019-08-07 10:12] LABS: ALBUMIN 2.7 g/dl (3.4-5.0); BILIRUBIN,TOTAL 0.3 mg/dL (0.2-1); BLOOD UREA NITROGEN 3.8 mg/dL (7-18); CALCIUM 8.8 mg/dL (8.5-10.1); CREATININE 0.7 mg/dL (0.55-1.3); POTASSIUM 3.5 mmol/L (3.5-5.1); TOT PROT 6.1 g/dl (6.4-8.2)
[2019-08-07] MEDS: DAPTOMYCIN 450 MG in SODIUM CHLORIDE 50 ML IVPB SCH (11:03)
[2019-08-07] MEDS: BACLOFEN 10 MG TABLET (FP) PO SCH ×2 (11:47→23:41)
--- NOTE | 2019-08-07 13:49 | PN ---
Progress Note (short form) - Note Progress Note: now with formed stool persistent nausea no fevers Vital Signs Period Temp Pulse Resp BP Sys/Mcnamara Pulse Ox Last 24 Hr 97.9 F-98.8 F 60-90 18-20 110-144/67-89 96 cor-rrr lungs clear abd soft, midepigastric pain to palpation ext no edeme incision on back dry CBC, BMP 08/07/19 08:25 08/07/19 08:25 Microbiology 08/05/19 11:48 Blood - Peripheral Venous Blood Culture - Preliminary NO GROWTH OBTAINED AFTER 48 HOURS, INCUBATION TO CONTINUE FOR 3 DAYS. 08/05/19 11:25 Blood - Peripheral Venous Blood Culture - Preliminary NO GROWTH OBTAINED AFTER 48 HOURS, INCUBATION TO CONTINUE FOR 3 DAYS. 08/05/19 10:15 Stool Salmonella/Shigella Culture - Final Yeast Like Organism 08/05/19 10:15 Stool Campylobacter Culture - Final NO GROWTH OF CAMPYLOBACTER SPECIES OBTAINED 08/05/19 10:15 Stool Yersinia Culture - Final NO GROWTH OF YERSINIA SPECIES OBTAINED 08/05/19 10:15 Stool Vibrio Culture - Final NO GROWTH OF VIBRIO SPECIES OBTAINED 08/05/19 10:15 Stool Escherichia coli 0157 Culture - Final NO GROWTH OF E COLI 0157 OBTAINED 08/04/19 19:30 Urine - Urine Clean Catch Urine Culture - Final NO GROWTH OBTAINED 08/05/19 10:15 Stool Gram Stain - Final 08/05/19 06:20 Stool Clostridioides difficile Antigen - Final 08/05/19 06:20 Stool Clostridioides difficile Toxin Assay - Final Current Medications Acetaminophen (Tylenol -) 325 mg PO Q6H PRN PRN Reason: PAIN 6-10 Last Admin: 08/07/19 08:40 Dose: 325 mg Albuterol Sulfate (Ventolin 0.083% Nebulizer Soln -) 1 amp NEB Q4H PRN PRN Reason: SHORT OF BREATH/WHEEZING Baclofen (Lioresal -) 5 mg PO BID [facility] Last Admin: 08/07/19 11:47 Dose: 5 mg Budesonide/Formoterol Fumarate (Symbicort 80/4.5mcg -) 2 puff IH BID [facility] Last Admin: 08/07/19 10:03 Dose: Not Given Enoxaparin Sodium (Lovenox -) 40 mg SQ DAILY [facility] Last Admin: 08/07/19 09:57 Dose: 40 mg Gabapentin (Neurontin -) 100 mg PO BID [facility] Last Admin: 08/07/19 09:59 Dose: 100 mg Sodium Chloride (Normal Saline -) 1,000 mls @ 75 mls/hr IV ASDIR NEFTALY Last Admin: 08/07/19 05:14 Dose: 75 mls/hr Cefepime HCl 2 gm/ Dextrose 100 mls @ 100 mls/hr IVPB BID [facility]; Protocol Last Admin: 08/07/19 09:56 Dose: 100 mls/hr Daptomycin 450 mg/ Sodium (Chloride) 50 mls @ 50 mls/hr IVPB DAILY [facility]; Protocol Last Admin: 08/07/19 11:03 Dose: 50 mls/hr Lactobacillus Acidophilus (Bacid -) 1 tab PO DAILY [facility] Last Admin: 08/07/19 09:58 Dose: 1 tab Ondansetron HCl (Zofran Injection) 8 mg IVPB Q6H PRN PRN Reason: NAUSEA Last Admin: 08/07/19 08:46 Dose: 8 mg Oxycodone HCl (Roxicodone -) 5 mg PO Q6H PRN PRN Reason: PAIN 6-10 Last Admin: 08/06/19 22:06 Dose: 5 mg Pantoprazole Sodium (Protonix -) 40 mg PO DAILY [facility] Last Admin: 08/07/19 09:58 Dose: 40 mg Trimethobenzamide HCl (Tigan Injection -) 200 mg IM Q8H PRN PRN Reason: NAUSEA a/p abdominal discomfort- per hospitalist service-?pain meds s/p lumbar laminectomy revision with washout 07/24, 07/27 continue daptomycin and cefepime inflammatory markers improved
--- NOTE | 2019-08-07 13:55 | PN ---
Teaching Attending Note Name of Resident: Marlin Nestor ATTENDING PHYSICIAN STATEMENT I saw and evaluated the patient. I reviewed the resident's note and discussed the case with the resident. I agree with the resident's findings and plan as documented. SUBJECTIVE: cont to be nausea but better. has no fever or chills. back pain at base line. reported a small amount of red blood withher BM 2 days ago. had h/o internal hemorrhoids, last colo 1 yr ago OBJECTIVE: NAD. CV: RRR, no MRG Lungs: CATB Ext: no edema or erythema on upper or lower ext. lumbar surgical wound with no drainage or surrounding erythema. Rectal: no external hemorrhoids or fissures. nl hair distribution. no masses or hemorrhoids felt in vault, no stool on examiner's finger. Lymphatic system: no LAP in axillary areas. has enlarged lymph nodes in groins. ASSESSMENT AND PLAN: 49 y/o lady with h/o asthma, GERD, fibroids s/p hysterectomy, and low back pain and spinal stenossi s/p revisionand fusion 07/23 with complicationof infected wound s/p debridment 07/27 who presented with diarrhea 1- Diarrhea, and nausea ? due to Abx vs viral gastroenteritis. Diarrhea resolved. Nausea is slightly better but still not tolerating liquids - lipase pending - rectal bleed is likely due to the known internal hemorrhoids. did not happen in a long time - LFTS nl. - cont PPI - cont liquid diet - will ask GI eval for persistent nausea 2- H/o recent lumbar surgical wound infection: - cont cefepime and dapto 3- H/o spinal stenosis s/p revision and fusion L3-S1 07/23. - cont oxy - cont low dose neurontin 4- Chronic normocytic anemia: iron studies don't indicate iron def. B12 and folate NL. OB + is likely form internal hemorrhoids.last colo 1 yr ago. she will need heme eval as out patient especially with the b/l groin lymphadenopathy onm exam. she was made aware 5- Incidental finding of L renal cyst. f/u as out pt
--- NOTE | 2019-08-07 14:15 | CON.GI ---
Consult Consult Specialty:: GI Referred by:: Hospitalist Service Reason for Consultation:: Nausea - History of Present Illness Chief Complaint: Nausea, diarrhea that has resolved History of Present Illness: 49F admitted [facility] for evalutaion of back pain, loose bowel movements and nausea. Noticed belching as well starting yesterday. Recently admitted . At that time she underwent L3-L5 Lumbar laminectomy. Was readmitted last month for back pain. Underwent washout of her lumbar surgical site by her orthopedist. Was discharged on Daptomycin and cefepime as well as oxycodone, percocet, baclofen and oral dilaudid for pain. Takes Dexilant at home for reflux. Was using medicinal marijuana for back pain as well but has not used for quite some time. Noticed blood on toilet paper after episodes of diarrhea at home. Explaines that diarrhea has stopped and she had a formed bowel movement yesterday and today. No further blood. Follows with cotton classer aide Dr. Zehra Gray at [facility], per the patient. She performed colonoscopy on Ms. Hamm in 2018 that revealed a colon polyp. Ms. Hamm believes that Dr. Gray performed EGD in 2017 but does not recall the findings. Nausea somewhat improved. Some back pain. Describes pelvic pain as well and mid abdominal pain. Denies NSAID use. Guaiac positive on specimen sent. CT scan of the abdomen and pelvis with IV contrast revealed diverticulosis , renal cyst, inguinal lymphadenopathy, fluid in cul de sac. Normocytic anemia noted since last admission. 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 Place of : [facility] History of Recent Travel: No Home Medications - Allergies Allergies/Adverse Reactions: Allergies Allergy/AdvReac Type Severity Reaction Status Date / Time latex Allergy "rash from Verified 08/04/19 17:15 tape" No Known Drug Allergies Allergy Verified 08/04/19 17:15 - Home Medications Home Medications: Ambulatory Orders Baclofen 5 mg PO BID 07/22/19 Dexlansoprazole [Dexilant -] 60 mg PO DAILY 07/22/19 HYDROmorphone [Dilaudid -] 2 mg PO Q4H PRN 07/22/19 Fluticasone/Salmeterol [Advair 250-50 Diskus] 1 each IH PRN PRN 07/23/19 Oxycodone HCl/Acetaminophen [Percocet 5-325 mg Tablet] 1 - 2 tab PO Q6H PRN #20 tab MDD 8 07/24/19 Albuterol 0.083% Nebulizer Sakina [Ventolin 0.083% Nebulizer Soln -] 1 amp NEB Q4H PRN amp 07/30/19 Cefepime [Maxipime (Restricted To Id) -] 2 gm IVPB BID #70 vial 07/30/19 Daptomycin [Cubicin (Restricted To Id) -] 450 mg IV DAILY #35 vial 07/30/19 Polyethylene Glycol 3350 [Miralax 119 gm Btl -] 17 gm PO DAILY PRN bottle 07/30 Family Medical History Other Family History: Father: : Uncelar cause. Mother: Alive: 72: pre diabetic. 2 brothers: 1 prediabetic. 3 sisters: 1 with pre diabetes. No children. No family history of colorectal cancer or other GI malignancy, celiac disease or IBD Review of Systems - Review of Systems Constitutional: denies: Chills, Fever, Unintentional Wgt. Loss Gastrointestinal: reports: Abdominal Pain, Diarrhea, Nausea. denies: Bloating, Constipation, Dysphagia, Vomiting, Vomiting Blood Physical Exam-GI Vital Signs: Vital Signs Temperature 98.4 F 08/07/19 04:57 Pulse Rate 90 08/07/19 04:57 Respiratory Rate 18 08/07/19 04:57 Blood Pressure 144/89 08/07/19 04:57 O2 Sat by Pulse Oximetry (%) 96 08/06/19 19:56 Constitutional: Yes: Calm Eyes: No: Sclera Icterus Cardiovascular: Yes: Regular Rate and Rhythm. No: Murmur Respiratory: Yes: CTA Bilaterally ...Auscultate: Yes: Normoactive Bowel Sounds, Other (No succussion splash) ...Palpate: Yes: Soft, Tenderness (Suprapubic TTP) ...Percussion: No: Tympanitic ...Rectal Exam: Yes: Other (No external lesions, no masses, no blood/melena, light dee liquid stool) Edema: No (No LE edema) Neurological: Yes: Alert Labs: CBC, BMP 08/07/19 08:25 08/07/19 08:25 Hepatic Panel Total Bilirubin 0.3 mg/dL (0.2-1) 08/07/19 08:25 AST 9 U/L (15-37) L 08/07/19 08:25 ALT 21 U/L (13-61) 08/07/19 08:25 Alkaline Phosphatase 92 U/L (45-117) 08/07/19 08:25 Albumin 2.7 g/dl (3.4-5.0) L 08/07/19 08:25 Problem List - Problems (1) Diarrhea Assessment/Plan: Suspect related to antibiotic use Resolved Continue probiotic Code(s): R19.7 - DIARRHEA, UNSPECIFIED (2) Nausea Assessment/Plan: No vomiting, + retching and nausea Suspect related to pain / medication regimen Medication elimination as feasible: Consider changing antibiotics as feasible per ID Added pyridoxine 25mg BID Discontinued Tigan If persistent retching, consider UGIS on Saturday Advance to full liquids then as tolerated Wean opiate analgesia as feasible Code(s): R11.0 - NAUSEA (3) Anemia Assessment/Plan: Iron deficiency component Will need further evaluation when acute issues are resolved. Advised that she make a follow-up appointment with Her cotton classer aide Dr. Zehra Gray to discuss EGD/Colonoscopy Code(s): D64.9 - ANEMIA, UNSPECIFIED Qualifiers: Anemia type: unspecified type Qualified Code(s): D64.9 - Anemia, unspecified (4) Lymphadenopathy Assessment/Plan: Inguinal lymphadeopathy: unclear etiology. ? if can be reactive from current back issues. Further w/u per primary team along with renal cyst Code(s): R59.1 - GENERALIZED ENLARGED LYMPH NODES
[2019-08-07] MEDS: PYRIDOXINE HCL (B-6) 50 MG TABLET (FP) PO SCH (17:21)
[2019-08-07] MEDS ORDERED: diphenhydrAMINE HCL 12.5 MG/5 ML UNIT-DOSE CUPS PO ONE ×2 (18:42→19:00)
--- NOTE | 2019-08-07 19:47 | PN ---
Physical Exam: SUBJECTIVE: Patient seen and examined in the morning. No acute events overnight. No complaints of chest pain, abdominal pain, fever, chills, cough, shortness of breath. OBJECTIVE: Vital Signs Period Temp Pulse Resp BP Sys/Mcnamara Pulse Ox Last 24 Hr 98.4 F-98.8 F 66-90 18-20 110-144/67-89 96 GENERAL: The patient is awake, alert, and fully oriented, in no acute distress. NECK: Trachea midline, full range of motion, supple. LUNGS: Breath sounds equal, clear to auscultation bilaterally, no wheezes, no crackles, no accessory muscle use. HEART: Regular rate and rhythm, S1, S2 without murmur, rub or gallop. ABDOMEN: Tender to palpation in all 4 quadrants. Non distended, no rebound tenderness. EXTREMITIES: 2+ pulses, warm, well-perfused, no edema. NEUROLOGICAL: Cranial nerves II through XII grossly intact. Full ROM in extremities. Back: Surgical wound is nonerythematous and healing. Laboratory Results - last 24 hr 08/07/19 08/07/19 08:25 08:25 WBC 6.3 RBC 2.73 L Hgb 8.4 L Hct 24.9 L MCV 91.5 MCH 30.7 MCHC 33.6 RDW 16.1 H Plt Count 341 MPV 8.7 Absolute Neuts (auto) 3.6 Neutrophils % 57.0 Lymphocytes % 26.1 Monocytes % 14.7 H Eosinophils % 1.2 Basophils % 1.0 Nucleated RBC % 0 Sodium 142 Potassium 3.5 Chloride 108 H Carbon Dioxide 27 Anion Gap 6 L BUN 3.8 L Creatinine 0.7 Est GFR (CKD-EPI)AfAm 117.09 Est GFR (CKD-EPI)NonAf 101.02 Random Glucose 98 Calcium 8.8 Total Bilirubin 0.3 AST 9 L ALT 21 Alkaline Phosphatase 92 Total Protein 6.1 L Albumin 2.7 L Total Amylase 30 Lipase 68 L Active Medications Generic Name Dose Route Start Last Admin Trade Name Freq PRN Reason Stop Dose Admin Acetaminophen 325 mg 08/05/19 07:55 08/07/19 08:40 Tylenol - PO 325 mg Q6H PRN Administration PAIN 6-10 Albuterol Sulfate 1 amp 08/05/19 08:38 Ventolin 0.083% Nebulizer Soln - NEB Q4H PRN SHORT OF BREATH/WHEEZING Baclofen 5 mg 08/05/19 10:00 08/07/19 11:47 Lioresal - PO 5 mg BID NEFTALY Administration Budesonide/Formoterol Fumarate 2 puff 08/05/19 10:00 08/07/19 10:03 Symbicort 80/4.5mcg - IH Not Given BID NEFTALY Enoxaparin Sodium 40 mg 08/05/19 10:00 08/07/19 09:57 Lovenox - SQ 40 mg DAILY NEFTALY Administration Gabapentin 100 mg 08/05/19 22:00 08/07/19 09:59 Neurontin - PO 100 mg BID NEFTALY Administration Sodium Chloride 1,000 mls @ 75 mls/hr 08/05/19 04:00 08/07/19 05:14 Normal Saline - IV 75 mls/hr ASDIR NEFTALY Administration Cefepime HCl 2 gm/ Dextrose 100 mls @ 100 mls/hr 08/05/19 22:00 08/07/19 09: 56 IVPB 100 mls/hr BID NEFTALY Administration Protocol Daptomycin 450 mg/ Sodium 50 mls @ 50 mls/hr 08/06/19 10:00 08/07/19 11:03 Chloride IVPB 50 mls/hr DAILY NEFTALY Administration Protocol Lactobacillus Acidophilus 1 tab 08/07/19 22:00 Bacid - PO BID NEFTALY Ondansetron HCl 4 mg 08/07/19 14:07 Zofran Injection IVPB Q6H PRN NAUSEA Oxycodone HCl 5 mg 08/05/19 07:55 08/06/19 22:06 Roxicodone - PO 5 mg Q6H PRN Administration PAIN 6-10 Pantoprazole Sodium 40 mg 08/05/19 10:00 08/07/19 09:58 Protonix - PO 40 mg DAILY NEFTALY Administration Pyridoxine HCl 25 mg 08/07/19 14:49 08/07/19 17:21 Vitamin B6 - PO 25 mg BID NEFTALY Administration Trimethobenzamide HCl 200 mg 08/06/19 14:04 Tigan Injection - IM Q8H PRN NAUSEA ASSESSMENT/PLAN: 49 F with PMH of asthma and chronic back pain s/p l3-l5 laminectomy with revision 1 week ago who presents with multiple episodes of diarrhea and acute back pain. 1)Diarrhea -Resolving, stools are becoming soft solids now. -C.Diff stool studies negative -Patient currently on antibiotics, could be source of infection -No nausea, no vomiting, no sick contacts, no one at home is experiencing diarrhea- enteritis is less likely -F/U stool culture- yeast organism seen. -F/U blood culture -NS @ 75 ml/hr -Continue Daptomycin 450 mg IV Daily -Continue Cefepime 2 gram IV Daily -ID consulted, appreciate recs -High level of care required due to poor PO intake and GI symptoms 2)Acute on chronic back pain -Patient started on oxycodeone 5 mg PO q6H PRN -Baclofen 5 mg PO BID -Physical therapy -q6 neuro hecks -Component of pain is in legs-likely sciatica- will start Neurontin 100 mg BID -Neurosurgery consulted, appreciate recs 3) Nausea -IV Zofran 8mg Q4 PRN -GI Consulted, appreciate recs -Low fiber diet -UGIS in AM 4) Asthma -Albuterol PRN 5)Anemia -chronic normocytic anemia -iron studies negstive -Pyrodixine 25 mg PO BID -Occult blood found in stool F: NS @ 75ml E: Monitor CMP N: Regular diet DVT: lovenox 40 mg SQ Daily Dispo: admitted to medicine Visit type - Emergency Visit Emergency Visit: Yes ED Registration Date: 08/04/19 Care time: The patient presented to the Emergency Department on the above date and was hospitalized for further evaluation of their emergent condition. - New Patient This patient is new to me today: No - Critical Care Critical Care patient: No ATTENDING PHYSICIAN STATEMENT I saw and evaluated the patient. I reviewed the resident's note and discussed the case with the resident. I agree with the resident's findings and plan as documented. SUBJECTIVE: OBJECTIVE: ASSESSMENT AND PLAN:
[2019-08-07] MEDS: oxyCODONE HCL 5 MG TABLET PO PRN (23:38)
[2019-08-08] MEDS: PYRIDOXINE HCL (B-6) 50 MG TABLET (FP) PO SCH ×3 (01:37→22:40)
--- NOTE | 2019-08-08 07:54 | PN.GI ---
GI Progress Note Subjective: denies vomiting but still with nausea , no other complaints - Objective Vital Signs: Vital Signs Temperature 98.1 F 08/08/19 05:24 Pulse Rate 102 H 08/08/19 05:24 Respiratory Rate 20 08/08/19 05:24 Blood Pressure 123/80 08/08/19 05:24 O2 Sat by Pulse Oximetry (%) 96 08/06/19 19:56 Constitutional: Well Nourished, No Distress, Calm Eyes: Yes: WNL HENT: Yes: WNL Neck: Yes: WNL Cardiovascular: Yes: WNL Respiratory: Yes: WNL, Regular, CTA Bilaterally Gastrointestinal Inspection: Yes: WNL ...Auscultate: Yes: Normoactive Bowel Sounds Musculoskeletal: Yes: WNL Extremities: Yes: WNL Edema: No Labs: CBC, BMP 08/07/19 08:25 08/07/19 08:25 Problem List - Problems (1) Anemia Assessment/Plan: upper GI series to further evaluate her dyspepsia she will f/u with her private GI as outpt for further work- up / endoscopic evaluation of her anemia antiemetic PPI advance to clear liquid as tolerated Code(s): D64.9 - ANEMIA, UNSPECIFIED Qualifiers: Anemia type: unspecified type Qualified Code(s): D64.9 - Anemia, unspecified (2) Intractable low back pain Code(s): M54.5 - LOW BACK PAIN (3) Nausea Code(s): R11.0 - NAUSEA
[2019-08-08 09:14] LABS: BASO % 0.9 % (0-2.0); EOS % 1.8 % (0-4.5); HEMATOCRIT 24.2 % (32.4-45.2); HEMOGLOBIN 8.4 GM/dL (10.7-15.3); LYMPH % 25.4 % (8-40); MCHC 34.9 g/dl (32.0-36.0); MEAN CELL VOLUME 91.7 fl (80-96); MEAN PLT VOLUME 9.3 fl (7.5-11.1); MONO % 14.3 % (3.8-10.2); NEUT % 57.6 % (42.8-82.8); PLATELET COUNT 347 K/MM3 (134-434); RBC 2.63 M/mm3 (3.60-5.2); RDW 16.5 % (11.6-15.6)
[2019-08-08] MEDS ORDERED: PT OWN MED DRAWER 7, Y5N ONE ×2 (09:14→20:44)
[2019-08-08 09:38] LABS: ALBUMIN 2.8 g/dl (3.4-5.0); BILIRUBIN,TOTAL 0.2 mg/dL (0.2-1); CALCIUM 8.9 mg/dL (8.5-10.1); CREATININE 0.6 mg/dL (0.55-1.3); POTASSIUM 3.2 mmol/L (3.5-5.1)
[2019-08-08 10:01] LABS: BLOOD UREA NITROGEN 2.5 mg/dL (7-18)
[2019-08-08] MEDS: ONDANSETRON 4 MG/2 ML VIAL IVPB PRN ×3 (10:08→22:42)
[2019-08-08] MEDS: ACETAMINOPHEN 325 MG TABLET (FP) PO PRN ×3 (10:12→22:40)
[2019-08-08] MEDS: BACLOFEN 10 MG TABLET (FP) PO SCH ×2 (10:13→22:39)
[2019-08-08] MEDS: LACTOBACILLUS ACIDOPHILUS 1 TABLET PO SCH ×2 (10:13→22:39)
[2019-08-08] MEDS: PANTOPRAZOLE 40 MG TABLET (FP) PO SCH (10:13)
[2019-08-08] MEDS: CEFEPIME 2 GM in DEXTROSE 5%-WATER 100 ML IVPB SCH ×2 (10:14→17:44)
[2019-08-08] MEDS: ENOXAPARIN NA (PORCINE) 40 MG/0.4 ML DISP.SYRIN SQ SCH (10:14)
[2019-08-08] MEDS: DAPTOMYCIN 450 MG in SODIUM CHLORIDE 50 ML IVPB SCH (10:15)
[2019-08-08] MEDS: BUDESONIDE/FORMETEROL FUMARATE 80/4.5 mcg INHALER IH SCH ×2 (10:15→22:42)
[2019-08-08] MEDS: GABAPENTIN 100 MG CAPSULE (FP) PO SCH ×2 (10:25→22:39)
--- NOTE | 2019-08-08 11:29 | PN ---
Physical Exam: SUBJECTIVE: Patient seen this morning, denies vomiting overnight but is still nauseous, denies any diarrhea. OBJECTIVE: Vital Signs Period Temp Pulse Resp BP Sys/Mncamara Pulse Ox Last 24 Hr 98.1 F-98.5 F 71-104 18-20 123-130/72-85 GENERAL: The patient is awake, alert, and fully oriented, in no acute distress.. LUNGS: Breath sounds equal, clear to auscultation bilaterally, no wheezes, no crackles, no accessory muscle use. HEART: Regular rate and rhythm, S1, S2 without murmur, rub or gallop. ABDOMEN: nontender EXTREMITIES: 2+ pulses, warm, well-perfused, no edema. SKIN: Warm, dry, normal turgor, no rashes or lesions noted CBC, BMP 08/08/19 07:10 08/08/19 07:10 Active Medications Acetaminophen (Tylenol -) 325 mg PO Q6H PRN PRN Reason: PAIN 6-10 Last Admin: 08/08/19 10:12 Dose: 325 mg Albuterol Sulfate (Ventolin 0.083% Nebulizer Soln -) 1 amp NEB Q4H PRN PRN Reason: SHORT OF BREATH/WHEEZING Baclofen (Lioresal -) 5 mg PO BID [facility] Last Admin: 08/08/19 10:13 Dose: 5 mg Budesonide/Formoterol Fumarate (Symbicort 80/4.5mcg -) 2 puff IH BID [facility] Last Admin: 08/08/19 10:15 Dose: Not Given Enoxaparin Sodium (Lovenox -) 40 mg SQ DAILY [facility] Last Admin: 08/08/19 10:14 Dose: 40 mg Gabapentin (Neurontin -) 100 mg PO BID [facility] Last Admin: 08/08/19 10:25 Dose: 100 mg Sodium Chloride (Normal Saline -) 1,000 mls @ 75 mls/hr IV ASDIR [facility] Last Admin: 08/07/19 05:14 Dose: 75 mls/hr Daptomycin 450 mg/ Sodium (Chloride) 50 mls @ 50 mls/hr IVPB DAILY NEFTALY; Protocol Last Admin: 08/08/19 10:15 Dose: 50 mls/hr Piperacillin Sod/Tazobactam (Sod 4.5 gm/ Dextrose) 100 mls @ 200 mls/hr IVPB Q8H-IV NEFTALY; Protocol Lactobacillus Acidophilus (Bacid -) 1 tab PO BID NEFTALY Last Admin: 08/08/19 10:13 Dose: 1 tab Ondansetron HCl (Zofran Injection) 4 mg IVPB Q6H PRN PRN Reason: NAUSEA Last Admin: 08/08/19 10:08 Dose: 4 mg Pantoprazole Sodium (Protonix -) 40 mg PO DAILY [facility] Last Admin: 08/08/19 10:13 Dose: 40 mg Pyridoxine HCl (Vitamin B6 -) 25 mg PO BID [facility] Last Admin: 08/08/19 10:13 Dose: 25 mg ASSESSMENT/PLAN: #nausea, vomting, diarrhea - diarrhea resolved, and cdiff negative - will obtain GI series for nausea - nausea possibly 2/2 to abx, will continue daptomycin and zosyn - monitor for improvement of sympotms - continue zofran and pyridoxine - pt followed by GI - stool cx negative #back pain with recent lumbar surgery - continue abx treatment for recent infection post op - continue home pain medication as needed - patient strength and sensation at baseline - continue PT #anemia - chronic normocytic anemia - iron studies negative - pyrodizine 25 mg po bid - stool occult positive #DVT ppx - lovenox 40 sq daily FEN regular diet Dspo: monitor on med surg, reevaluate symptoms on saturday Visit type - Emergency Visit Emergency Visit: Yes ED Registration Date: 08/04/19 Care time: The patient presented to the Emergency Department on the above date and was hospitalized for further evaluation of their emergent condition. - New Patient This patient is new to me today: Yes Date on this admission: 08/08/19 - Critical Care Critical Care patient: No ATTENDING PHYSICIAN STATEMENT I saw and evaluated the patient. I reviewed the resident's note and discussed the case with the resident. I agree with the resident's findings and plan as documented. SUBJECTIVE: OBJECTIVE: ASSESSMENT AND PLAN:
[2019-08-08] MEDS ORDERED: ALTEPLASE 2 MG VIAL IVPUSH ONE (13:23)
--- NOTE | 2019-08-08 13:43 | PN ---
Progress Note (short form) - Note Progress Note: now with formed stool persistent nausea no fevers abdominal pain improved Vital Signs Period Temp Pulse Resp BP Sys/Mcnamara Pulse Ox Last 24 Hr 98.1 F-99.2 F 63-104 18-20 119-130/71-85 cor-rrr llungs clear abd soft,nt ext no edema CBC, BMP 08/08/19 07:10 08/08/19 07:10 Microbiology 08/05/19 11:48 Blood - Peripheral Venous Blood Culture - Preliminary NO GROWTH OBTAINED AFTER 72 HOURS, INCUBATION TO CONTINUE FOR 2 DAYS. 08/05/19 11:25 Blood - Peripheral Venous Blood Culture - Preliminary NO GROWTH OBTAINED AFTER 72 HOURS, INCUBATION TO CONTINUE FOR 2 DAYS. 08/05/19 10:15 Stool Salmonella/Shigella Culture - Final Yeast Like Organism 08/05/19 10:15 Stool Campylobacter Culture - Final NO GROWTH OF CAMPYLOBACTER SPECIES OBTAINED 08/05/19 10:15 Stool Yersinia Culture - Final NO GROWTH OF YERSINIA SPECIES OBTAINED 08/05/19 10:15 Stool Vibrio Culture - Final NO GROWTH OF VIBRIO SPECIES OBTAINED 08/05/19 10:15 Stool Escherichia coli 0157 Culture - Final NO GROWTH OF E COLI 0157 OBTAINED 08/04/19 19:30 Urine - Urine Clean Catch Urine Culture - Final NO GROWTH OBTAINED 08/05/19 10:15 Stool Gram Stain - Final 08/05/19 06:20 Stool Clostridioides difficile Antigen - Final 08/05/19 06:20 Stool Clostridioides difficile Toxin Assay - Final a/p abdominal discomfort- d/w hospitalist, d/w patient- lucrecia d/c cefepime and switch to zosyn, for GI series , continues to need zofran she has been on all these pain meds before without difficulty, diarrhea has resolved anemia s/p lumbar laminectomy revision with washout 07/24, 07/27 continue daptomycin and zosyn inflammatory markers improved
[2019-08-08] MEDS ORDERED: POTASSIUM CHLORIDE TABS 20 MEQ TABLET.ER (FP) PO ONE (14:22)
--- NOTE | 2019-08-08 17:03 | PN ---
Teaching Attending Note Name of Resident: Marlin Baez ATTENDING PHYSICIAN STATEMENT I saw and evaluated the patient. I reviewed the resident's note and discussed the case with the resident. I agree with the resident's findings and plan as documented. SUBJECTIVE: No fever or chills. she still feels very nauseous and can't tolerate diet, ( minimal food intake and takes only liquids ) OBJECTIVE: NAD. CV: RRR, no MRG Lungs: CATB Ext: no edema or erythema on upper or lower ext. Lumbar surgical wound with no drainage or surrounding erythema. Neuro of LE: strength in L hip flexion is 4/5 other henderson 5/5 strength in R hip flexion and b/l knee flexion /extension adn ankle dorsiflexion/extension. L knee jerk 1+ , R knee jerk 2+ . decreased sensation to light touch in LLE ASSESSMENT AND PLAN: 49 y/o lady with h/o asthma, GERD, fibroids s/p hysterectomy, and low back pain and spinal stenossi s/p revisionand fusion 07/23 with complicationof infected wound s/p debridment 07/27 who presented with diarrhea 1- Diarrhea, and nausea :? due to Abx vs viral gastroenteritis. Diarrhea resolved. Nausea continues with poor po intake - cont PPI - GI series ordered but can't be done until Saturday - change diet to full liquid -d/w ID , Abx changed to zosyn and dapto - add compazine to zofran 2- H/o recent lumbar surgical wound infection: - zosyn and dapto now 3- H/o spinal stenosis s/p revision and fusion L3-S1 07/23. - cont oxy - cont low dose neurontin 4- Chronic normocytic anemia: Gi and heme eval as out pt 5- Incidental finding of L renal cyst. f/u as out pt 6- LAP : she knows she needs to follow as out pt HLOC due to intractable nausea and inability to tolerate diet.
[2019-08-08] MEDS: SODIUM CHLORIDE 1,000 ML IV SCH (17:41)
[2019-08-08] MEDS ORDERED: DEXTROSE 5%-WATER 100 ML IVPB ONE (17:46)
[2019-08-08] MEDS ORDERED: PIPERACILLIN/TAZOBACTAM 4.5 GM VIAL IVPB ONE (17:46)
[2019-08-08] MEDS ORDERED: SIMETHICONE 80 MG TAB.CHEW (FP) PO ONE (23:47)
--- NOTE | 2019-08-08 23:48 | HOSP ---
Subjective - Review of Symptoms Events since last encounter: Rapid response was called. Rapid response team arrived to the scene to find pt in chest discomfort and pain. Pt was evaluated and examined. Pts symptoms self resolved within few minutes after she belched. Patient was saturating well, with no further c.o. Was afebrile and stable. vitals: 132/97 HR 89 O2sat 99 RR 17 PE: General- anxious, in discomfort and pain Neuro- CN 2-12 intact, sensation and strength intact b/l, PERRLA, EOMI Resp: CTAB CV: RRR, no M/G/R Back- pt in brace Plan #Chest Pain r/o ACS vs gas pain EKG was without ischemic changes troponins were ordered stat simethicone was administered Physical Examination Vital Signs: Vital Signs Temperature 99.5 F 08/08/19 19:45 Pulse Rate 76 08/08/19 19:45 Respiratory Rate 20 08/08/19 19:45 Blood Pressure 127/77 08/08/19 19:45 O2 Sat by Pulse Oximetry (%) 96 08/06/19 19:56 Labs: CBC, BMP 08/08/19 07:10 08/08/19 07:10 Visit type - Emergency Visit Emergency Visit: Yes ED Registration Date: 08/04/19 Care time: The patient presented to the Emergency Department on the above date and was hospitalized for further evaluation of their emergent condition. - New Patient This patient is new to me today: Yes Date on this admission: 08/09/19 - Critical Care Critical Care patient: No
[2019-08-09] MEDS: PIPERACILLIN/TAZOB 4.5 GM 4.5 GM in DEXTROSE 5%-WATER 100 ML IVPB SCH ×4 (01:22→18:57)
[2019-08-09] MEDS ORDERED: DEXTROSE 5%-WATER 100 ML IVPB ONE ×3 (01:35→18:47)
[2019-08-09] MEDS ORDERED: PIPERACILLIN/TAZOBACTAM 4.5 GM VIAL IVPB ONE ×3 (01:35→18:46)
[2019-08-09] MEDS: ONDANSETRON 4 MG/2 ML VIAL IVPB PRN ×2 (05:36→13:07)
[2019-08-09] MEDS: ACETAMINOPHEN 325 MG TABLET (FP) PO PRN ×3 (05:36→21:33)
[2019-08-09] MEDS: SODIUM CHLORIDE 1,000 ML IV SCH ×2 (05:37→23:59)
--- NOTE | 2019-08-09 06:55 | PN.GI ---
GI Progress Note Subjective: family at the bedside still with some nausea - no new complaints - Objective Vital Signs: Vital Signs Temperature 99.5 F 08/08/19 19:45 Pulse Rate 76 08/08/19 19:45 Respiratory Rate 20 08/08/19 19:45 Blood Pressure 127/77 08/08/19 19:45 O2 Sat by Pulse Oximetry (%) 96 08/06/19 19:56 Constitutional: Well Nourished, No Distress, Calm Eyes: Yes: WNL HENT: Yes: WNL Neck: Yes: WNL Cardiovascular: Yes: WNL Respiratory: Yes: WNL, Regular, CTA Bilaterally Gastrointestinal Inspection: Yes: WNL ...Auscultate: Yes: Normoactive Bowel Sounds Extremities: Yes: WNL Edema: No Labs: CBC, BMP 08/08/19 07:10 08/08/19 07:10 Problem List - Problems (1) Anemia Assessment/Plan: upper GI series to further evaluate her dyspepsia she will f/u with her private GI as outpt for further work- up / endoscopic evaluation of her anemia antiemetic PPI / short course of pepcid added advance diet as tolerated Code(s): D64.9 - ANEMIA, UNSPECIFIED Qualifiers: Anemia type: unspecified type Qualified Code(s): D64.9 - Anemia, unspecified (2) Intractable low back pain Code(s): M54.5 - LOW BACK PAIN (3) Nausea Code(s): R11.0 - NAUSEA
[2019-08-09] MEDS ORDERED: PT OWN MED DRAWER 7, Y5N ONE ×2 (09:07→10:31)
[2019-08-09] MEDS: LACTOBACILLUS ACIDOPHILUS 1 TABLET PO SCH ×2 (09:14→21:33)
[2019-08-09] MEDS: BACLOFEN 10 MG TABLET (FP) PO SCH ×2 (09:14→21:33)
[2019-08-09] MEDS: PANTOPRAZOLE 40 MG TABLET (FP) PO SCH (09:14)
[2019-08-09] MEDS: ENOXAPARIN NA (PORCINE) 40 MG/0.4 ML DISP.SYRIN SQ SCH (09:17)
[2019-08-09] MEDS: GABAPENTIN 100 MG CAPSULE (FP) PO SCH ×2 (09:17→21:34)
[2019-08-09] MEDS: PYRIDOXINE HCL (B-6) 50 MG TABLET (FP) PO SCH ×2 (09:22→21:33)
[2019-08-09] MEDS: BUDESONIDE/FORMETEROL FUMARATE 80/4.5 mcg INHALER IH SCH ×2 (09:28→21:34)
[2019-08-09 09:49] LABS: MAGNESIUM 1.7 mg/dL (1.8-2.4); PHOSPHOROUS 3.9 mg/dL (2.5-4.9); POTASSIUM 3.6 mmol/L (3.5-5.1)
[2019-08-09] MEDS: DAPTOMYCIN 450 MG in SODIUM CHLORIDE 50 ML IVPB SCH (10:25)
--- NOTE | 2019-08-09 13:06 | PN ---
Progress Note (short form) - Note Progress Note: vomited her cream of wheat this am, ate lunch still with nausea and abdominal cramps switched from cefepime to zosyn yesterday no fevers no diarrhea Vital Signs Period Temp Pulse Resp BP Sys/Mcnamara Pulse Ox Last 24 Hr 99.5 F 76-132 20-20 127-139/77-97 98-99 cor-rrr lungs clear abd soft,mild midepigastric discomfort to palpation ext no edema CBC, BMP 08/08/19 07:10 08/09/19 08:55 no labs today Microbiology 08/05/19 11:48 Blood - Peripheral Venous Blood Culture - Preliminary NO GROWTH OBTAINED AFTER 96 HOURS, INCUBATION TO CONTINUE FOR 1 DAYS. 08/05/19 11:25 Blood - Peripheral Venous Blood Culture - Preliminary NO GROWTH OBTAINED AFTER 96 HOURS, INCUBATION TO CONTINUE FOR 1 DAYS. 08/05/19 10:15 Stool Salmonella/Shigella Culture - Final Yeast Like Organism 08/05/19 10:15 Stool Campylobacter Culture - Final NO GROWTH OF CAMPYLOBACTER SPECIES OBTAINED 08/05/19 10:15 Stool Yersinia Culture - Final NO GROWTH OF YERSINIA SPECIES OBTAINED 08/05/19 10:15 Stool Vibrio Culture - Final NO GROWTH OF VIBRIO SPECIES OBTAINED 08/05/19 10:15 Stool Escherichia coli 0157 Culture - Final NO GROWTH OF E COLI 0157 OBTAINED 08/04/19 19:30 Urine - Urine Clean Catch Urine Culture - Final NO GROWTH OBTAINED 08/05/19 10:15 Stool Gram Stain - Final 08/05/19 06:20 Stool Clostridioides difficile Antigen - Final 08/05/19 06:20 Stool Clostridioides difficile Toxin Assay - Final a/p diarrhea has resolve persistent nausea and cramps- switched off cefepime to zosyn, further workup per GI s/p lumbar laminectomy revision with washout 07/24, 07/27 continue daptomycin and zosyn no signs of wound infection picc line or surgical incision Problem List - Problems (1) Diarrhea Code(s): R19.7 - DIARRHEA, UNSPECIFIED (2) S/P lumbar fusion Code(s): Z98.1 - ARTHRODESIS STATUS
[2019-08-09] MEDS ORDERED: MAGNESIUM SULF 50% (8.12 MEQ/2 ML-1 GM VIAL) IVPB ONE (15:53)
--- NOTE | 2019-08-09 15:57 | PN ---
Progress Note (short form) - Note Progress Note: Subjective: no fever or chills. No MCCULLOUGH . still feels nauseous. No vomiting. declined liquid diet. events over night are noted Objective: Vital Signs: Last Vital Signs Temp Pulse Resp BP Pulse Ox 98.5 F 91 H 18 134/81 98 08/09/19 13:56 08/09/19 13:56 08/09/19 13:56 08/09/19 13:56 08/09/19 09:00 Intake & Output 08/06/19 08/07/19 08/08/19 08/09/19 23:59 23:59 23:59 22:59 Intake Total 2850 1970 410 440 Balance 2850 1970 410 440 Physical Exam: NAD. CV: RRR, no MRG Lungs: CATB Ext: no edema or erythema on upper or lower ext. Lumbar surgical wound with no drainage or surrounding erythema. Neuro of LE: strength in L hip flexion is 4/5 other henderson 5/5 strength in R hip flexion and b/l knee flexion /extension adn ankle dorsiflexion/extension. L knee jerk 1+ , R knee jerk 2+ . decreased sensation to light touch in LLE ASSESSMENT AND PLAN: 49 y/o lady with h/o asthma, GERD, fibroids s/p hysterectomy, and low back pain and spinal stenossi s/p revisionand fusion 07/23 with complicationof infected wound s/p debridment 07/27 who presented with diarrhea 1- Diarrhea: resolved 2- Persistent nausea. continues with changing Abx - UGIS tomorrow . - if no etiology found, will d/w GI the need for EGD - cont PPI - cont compazine and zofran 3- H/o recent lumbar surgical wound infection: - zosyn and dapto 4- H/o spinal stenosis s/p revision and fusion L3-S1 07/23. - cont oxy - cont low dose neurontin 5- Chronic normocytic anemia: GI and heme eval as out pt 6- Incidental finding of L renal cyst. f/u as out pt 7- LAP : she knows she needs to follow as out pt for biopsy if no resolution 8- Dysfunctional PICC line: functional again after heparin flush. No DVT. cont to use HLOC due to intractable nausea and inability to tolerate diet. Visit type - Emergency Visit Emergency Visit: Yes ED Registration Date: 08/04/19 Care time: The patient presented to the Emergency Department on the above date and was hospitalized for further evaluation of their emergent condition. - New Patient This patient is new to me today: No - Critical Care Critical Care patient: No
[2019-08-09] MEDS: FAMOTIDINE 20 MG/50 ML IVPB 20 MG/50 ML MG IVPB SCH (21:33)
[2019-08-10] MEDS ORDERED: PIPERACILLIN/TAZOBACTAM 4.5 GM VIAL IVPB ONE ×2 (01:01→09:44)
[2019-08-10] MEDS ORDERED: DEXTROSE 5%-WATER 100 ML IVPB ONE ×2 (01:01→09:44)
[2019-08-10] MEDS: PIPERACILLIN/TAZOB 4.5 GM 4.5 GM in DEXTROSE 5%-WATER 100 ML IVPB SCH ×3 (01:09→09:52)
[2019-08-10] MEDS: ACETAMINOPHEN 325 MG TABLET (FP) PO PRN ×2 (03:01→09:49)
[2019-08-10] MEDS: SODIUM CHLORIDE 1,000 ML IV SCH ×2 (04:39→23:11)
[2019-08-10 08:24] LABS: MAGNESIUM 2.1 mg/dL (1.8-2.4); PHOSPHOROUS 3.9 mg/dL (2.5-4.9); POTASSIUM 3.5 mmol/L (3.5-5.1)
[2019-08-10] MEDS: LACTOBACILLUS ACIDOPHILUS 1 TABLET PO SCH ×2 (09:47→21:50)
[2019-08-10] MEDS: BACLOFEN 10 MG TABLET (FP) PO SCH ×2 (09:49→21:50)
[2019-08-10] MEDS: FAMOTIDINE 20 MG/50 ML IVPB 20 MG/50 ML MG IVPB SCH ×2 (09:49→21:50)
[2019-08-10] MEDS: PANTOPRAZOLE 40 MG TABLET (FP) PO SCH (09:50)
[2019-08-10] MEDS: GABAPENTIN 100 MG CAPSULE (FP) PO SCH (09:50)
[2019-08-10] MEDS: ENOXAPARIN NA (PORCINE) 40 MG/0.4 ML DISP.SYRIN SQ SCH (09:51)
--- NOTE | 2019-08-10 10:17 | EKG ---
Test Reason : Blood Pressure : / mmHG Vent. Rate : 084 BPM Atrial Rate : 084 BPM P-R Int : 152 ms QRS Dur : 080 ms QT Int : 364 ms P-R-T Axes : 047 036 038 degrees QTc Int : 430 ms NORMAL SINUS RHYTHM WITH SINUS ARRHYTHMIA NORMAL ECG WHEN COMPARED WITH ECG OF 04-AUG-2019 20:58, NO SIGNIFICANT CHANGE WAS FOUND Confirmed by KAYLI MARTINEZ MD ([id number]) on 08/10/2019 10:17:20 AM Referred By: Confirmed By:KAYLI MARTINEZ MD
[2019-08-10] MEDS: oxyCODONE HCL 5 MG TABLET PO PRN ×2 (11:34→17:15)
[2019-08-10] MEDS: BUDESONIDE/FORMETEROL FUMARATE 80/4.5 mcg INHALER IH SCH ×2 (11:52→22:10)
[2019-08-10] MEDS: DAPTOMYCIN 450 MG in SODIUM CHLORIDE 50 ML IVPB SCH (11:52)
[2019-08-10] MEDS: PYRIDOXINE HCL (B-6) 50 MG TABLET (FP) PO SCH ×2 (12:19→23:02)
--- NOTE | 2019-08-10 12:48 | PN ---
Physical Exam: SUBJECTIVE: Patient seen and examined in the morning. No acute events overnight but patient had episode of diarrhea shortly before speaking with examiner. Was able to tolerate regular diet yesterday and had no vomiting or diarrhea. Patient still has diffuse abdominal pain and back pain. No complaints of chest pain, shortness of breath,fevers, chills. OBJECTIVE: Vital Signs Period Temp Pulse Resp BP Sys/Mcnamara Pulse Ox Last 24 Hr 98.5 F-98.6 F 73-91 18-18 130-134/73-81 98 GENERAL: The patient is awake, alert, and fully oriented, in no acute distress. NECK: Trachea midline, full range of motion, supple. LUNGS: Breath sounds equal, clear to auscultation bilaterally, no wheezes, no crackles, no accessory muscle use. HEART: Regular rate and rhythm, S1, S2 without murmur, rub or gallop. ABDOMEN: Tender to palpation in all 4 quadrants. Non distended, no rebound tenderness. EXTREMITIES: 2+ pulses, warm, well-perfused, no edema. Left upper extremity is slightly swollen around PICC insertion site. No erythema. NEUROLOGICAL: Cranial nerves II through XII grossly intact. Full ROM in extremities. Back: Surgical wound is nonerythematous and healing. Laboratory Results - last 24 hr 08/10/19 06:55 Potassium 3.5 Phosphorus 3.9 Magnesium 2.1 Active Medications Generic Name Dose Route Start Last Admin Trade Name Freq PRN Reason Stop Dose Admin Acetaminophen 325 mg 08/10/19 10:15 Tylenol - PO Q6H PRN PAIN LEVEL 4 - 6 Baclofen 5 mg 08/05/19 10:00 08/10/19 09:49 Lioresal - PO 5 mg BID NEFTALY Administration Budesonide/Formoterol Fumarate 2 puff 08/05/19 10:00 08/10/19 11:52 Symbicort 80/4.5mcg - IH Not Given BID NEFTALY Enoxaparin Sodium 40 mg 08/05/19 10:00 08/10/19 09:51 Lovenox - SQ 40 mg DAILY NEFTALY Administration Gabapentin 100 mg 08/05/19 22:00 08/10/19 09:50 Neurontin - PO 100 mg BID NEFTALY Administration Sodium Chloride 1,000 mls @ 75 mls/hr 08/05/19 04:00 08/10/19 04:39 Normal Saline - IV Not Given ASDIR NEFTALY Daptomycin 450 mg/ Sodium 50 mls @ 50 mls/hr 08/06/19 10:00 08/10/19 11:52 Chloride IVPB 50 mls/hr DAILY NEFTALY Administration Protocol Piperacillin Sod/Tazobactam 100 mls @ 200 mls/hr 08/08/19 18:00 08/10/19 09: 52 Sod 4.5 gm/ Dextrose IVPB 200 mls/hr Q8H-IV NEFTALY Administration Protocol Famotidine/Sodium Chloride 20 mg in 50 mls @ 100 mls/hr 08/09/19 22:00 09:49 Pepcid 20 Mg Premixed Ivpb - IVPB 100 mls/hr BID NEFTALY Administration Lactobacillus Acidophilus 1 tab 08/07/19 22:00 08/10/19 09:47 Bacid - PO 1 tab BID NEFTALY Administration Ondansetron HCl 4 mg 08/07/19 14:07 08/09/19 13:07 Zofran Injection IVPB 4 mg Q6H PRN Administration NAUSEA Oxycodone HCl 5 mg 08/10/19 10:07 08/10/19 11:34 Roxicodone - PO 5 mg Q6H PRN Administration PAIN LEVEL 7 - 10 Pantoprazole Sodium 40 mg 08/05/19 10:00 08/10/19 09:50 Protonix - PO 40 mg DAILY NEFTALY Administration Pyridoxine HCl 25 mg 08/07/19 14:49 08/09/19 21:33 Vitamin B6 - PO 25 mg BID NEFTALY Administration ASSESSMENT/PLAN: 49 F with PMH of asthma and chronic back pain s/p l3-l5 laminectomy with revision 1 week ago who presents with multiple episodes of diarrhea and acute back pain. 1)Diarrhea -No episodes over the weekend, but one episode in the AM. -C.Diff stool studies negative -Patient currently on antibiotics, could be source of infection- Cefepime switched to Zoysn. -F/U stool culture- yeast organism seen. -F/U blood culture- no organisms grown. -NS @ 75 ml/hr -Continue Daptomycin 450 mg IV Daily -Continue Zoysn 4.5 gram IV Daily -ID consulted, appreciate recs -High level of care required due to poor PO intake and GI symptoms 2) Nausea -IV Zofran 8mg Q4 PRN -UGIS completed- shows no signs of obstruction. No gastric or duodenal bulb ulcer seen. No GERD during examination. No hiatal hernia. -GI Consulted, appreciate recs -Starting clear liquid diet -Pepcid 20 mg IV -Protonix 40 mg IV 3)Acute on chronic back pain -Patient started on oxycodeone 5 mg PO q6H PRN -Baclofen 5 mg PO BID -Physical therapy -q6 neuro hecks -Component of pain is in legs-likely sciatica- will start Neurontin 100 mg BID -Neurosurgery consulted, appreciate recs 4) Asthma -Albuterol PRN 5)Anemia -chronic normocytic anemia -iron studies negstive -Pyrodixine 25 mg PO BID -Occult blood found in stool F: NS @ 75ml E: Monitor CMP N: Clear Liquid Diet DVT: lovenox 40 mg SQ Daily Dispo: admitted to medicine Visit type - Emergency Visit Emergency Visit: Yes ED Registration Date: 08/04/19 Care time: The patient presented to the Emergency Department on the above date and was hospitalized for further evaluation of their emergent condition. - New Patient This patient is new to me today: No - Critical Care Critical Care patient: No ATTENDING PHYSICIAN STATEMENT I saw and evaluated the patient. I reviewed the resident's note and discussed the case with the resident. I agree with the resident's findings and plan as documented. SUBJECTIVE: OBJECTIVE: ASSESSMENT AND PLAN:
--- NOTE | 2019-08-10 13:31 | PN ---
Progress Note (short form) - Note Progress Note: GI f/u Ate regular meal last night and no nausea, no GI upset Had UGIS this am - unremarkable Got clears for lunch and is feeling hungry - asking for regular diet No abdominal pain ok to resume regular diet Please call GI back with questions
--- NOTE | 2019-08-10 13:52 | PN ---
Teaching Attending Note Name of Resident: Elmer Griffin ATTENDING PHYSICIAN STATEMENT I saw and evaluated the patient. I reviewed the resident's note and discussed the case with the resident. I agree with the resident's findings and plan as documented. SUBJECTIVE: No fever or chills. cont to have nausea . had massive diarrhea today OBJECTIVE: NAD. CV: RRR, no MRG Abd: soft, ND, minimal discomfort in epigastric area and in suprapubic area Lungs: CATB Ext: no edema or erythema on upper or lower ext. Lumbar surgical wound is clean with no erythema Neuro of LE: strength in L hip flexion is 3/5 other henderson 5/5 strength in R hip flexion and b/l knee flexion /extension adn ankle dorsiflexion/extension. L knee jerk 1+ , R knee jerk 2+ . decreased sensation to light touch in LLE ASSESSMENT AND PLAN: 49 y/o lady with h/o asthma, GERD, fibroids s/p hysterectomy, and low back pain and spinal stenossi s/p revisionand fusion 07/23 with complicationof infected wound s/p debridment 07/27 who presented with diarrhea 1- Diarrhea: resolved 2- Nausea. improved - UGIS with no pathology - cont PPI - dc neurontin - will d/w GI the possibility of EGD 3- H/o recent lumbar surgical wound infection: - d/w ID. change zosyn to cefipime and dapto to vanco. Abx to cont through 09/07 4- H/o spinal stenosis s/p revision and fusion L3-S1 07/23. - cont oxy - dc neurontin 5- Chronic normocytic anemia: GI and heme eval as out pt 6- Incidental finding of L renal cyst. f/u as out pt 7- LAP: follow up as out pt for biopsy if no resolution cont to monitor
[2019-08-10] MEDS: ONDANSETRON 4 MG/2 ML VIAL IVPB PRN (14:14)
--- NOTE | 2019-08-10 14:47 | PN ---
Progress Note (short form) - Note Progress Note: reports diarrhea time 3 this am, now resolved continued abodminal discomfort continued nausea unchanged despite switch from cefepime to zosyn Vital Signs Period Temp Pulse Resp BP Sys/Mcnamara Pulse Ox Last 24 Hr 98.3 F-98.6 F 73-96 18-18 130-134/73-82 98 cor-rrr lungs clear abd soft,midepigastric discomfort unchanged ext no edema CBC, BMP 08/08/19 07:10 08/10/19 06:55 a/p recurrent diarrhea-would observe to see if recurs after she starts eating again persistent nausea- switch back to cefepime (no change with switch), switch daptomycin to vancomycin s/p lumbar laminectomy revision with washout 07/24, 07/27 repeat esr Problem List - Problems (1) Diarrhea Code(s): R19.7 - DIARRHEA, UNSPECIFIED (2) S/P lumbar fusion Code(s): Z98.1 - ARTHRODESIS STATUS
[2019-08-10] MEDS: VANCOMYCIN 1 GRAM (PRE-DOCKED) 1,000 MG/250 ML BAG IVPB SCH (19:39)
[2019-08-10] MEDS: CEFEPIME 2 GM in DEXTROSE 5%-WATER 100 ML IVPB SCH (23:03)
[2019-08-11] MEDS: oxyCODONE HCL 5 MG TABLET PO PRN ×4 (03:13→23:24)
[2019-08-11] MEDS: ACETAMINOPHEN 325 MG TABLET (FP) PO PRN ×4 (03:14→23:25)
[2019-08-11] MEDS: SODIUM CHLORIDE 1,000 ML IV SCH (05:19)
[2019-08-11] MEDS: ONDANSETRON 4 MG/2 ML VIAL IVPB PRN (05:36)
[2019-08-11 07:54] LABS: BASO % 1.2 % (0-2.0); EOS % 1.6 % (0-4.5); HEMATOCRIT 28.1 % (32.4-45.2); HEMOGLOBIN 9.3 GM/dL (10.7-15.3); LYMPH % 36.9 % (8-40); MCH 30.3 pg (25.7-33.7); MCHC 33.2 g/dl (32.0-36.0); MEAN CELL VOLUME 91.4 fl (80-96); MEAN PLT VOLUME 9.1 fl (7.5-11.1); MONO % 14.2 % (3.8-10.2); NEUT % 46.1 % (42.8-82.8); PLATELET COUNT 377 K/MM3 (134-434); RBC 3.07 M/mm3 (3.60-5.2); RDW 16.7 % (11.6-15.6); WHITE BLOOD COUNT 4.9 K/mm3 (4.0-10.0)
[2019-08-11 08:20] LABS: ALBUMIN 3.1 g/dl (3.4-5.0); BILIRUBIN,TOTAL 0.2 mg/dL (0.2-1); BLOOD UREA NITROGEN 3.4 mg/dL (7-18); CALCIUM 9.4 mg/dL (8.5-10.1); CREATININE 0.7 mg/dL (0.55-1.3); POTASSIUM 3.7 mmol/L (3.5-5.1); TOT PROT 6.8 g/dl (6.4-8.2)
[2019-08-11] MEDS: VANCOMYCIN 1 GRAM (PRE-DOCKED) 1,000 MG/250 ML BAG IVPB SCH (09:00)
[2019-08-11] MEDS ORDERED: PT OWN MED DRAWER 7, Y5N ONE ×3 (09:30→21:29)
[2019-08-11] MEDS: BACLOFEN 10 MG TABLET (FP) PO SCH ×2 (09:57→21:35)
[2019-08-11] MEDS: ENOXAPARIN NA (PORCINE) 40 MG/0.4 ML DISP.SYRIN SQ SCH (09:57)
[2019-08-11] MEDS: PYRIDOXINE HCL (B-6) 50 MG TABLET (FP) PO SCH ×2 (09:58→21:34)
[2019-08-11] MEDS: LACTOBACILLUS ACIDOPHILUS 1 TABLET PO SCH ×2 (09:59→21:35)
[2019-08-11] MEDS: FAMOTIDINE 20 MG/50 ML IVPB 20 MG/50 ML MG IVPB SCH (10:01)
[2019-08-11] MEDS: BUDESONIDE/FORMETEROL FUMARATE 80/4.5 mcg INHALER IH SCH ×3 (10:02→21:35)
[2019-08-11] MEDS: CEFEPIME 2 GM in DEXTROSE 5%-WATER 100 ML IVPB SCH (11:37)
[2019-08-11] MEDS ORDERED: PIPERACILLIN/TAZOBACTAM 4.5 GM VIAL IVPB ONE ×2 (12:41→17:41)
[2019-08-11] MEDS ORDERED: DEXTROSE 5%-WATER 100 ML IVPB ONE ×2 (12:41→17:42)
[2019-08-11] MEDS: PIPERACILLIN/TAZOB 4.5 GM 4.5 GM in DEXTROSE 5%-WATER 100 ML IVPB SCH ×2 (12:47→17:57)
[2019-08-11] MEDS ORDERED: diphenhydrAMINE HCL 25 MG CAPSULE (FP) PO ONE (16:36)
--- NOTE | 2019-08-11 16:52 | PN ---
Progress Note (short form) - Note Progress Note: diarrhea resolved, now with midepiagstric discomfort only still some nausea cefepime is giving her headaches- will switch back to zosyn at her request Vital Signs Period Temp Pulse Resp BP Sys/Mcnamara Pulse Ox Last 24 Hr 98.0 F-98.7 F 64-114 20-22 121-138/41-76 99-99 cor-rrr lungs clear abd soft,midepigastric discomfort unchanged, no pelvic discomfort on exam ext no edema CBC, BMP 08/11/19 07:20 08/11/19 07:20 Microbiology 08/05/19 11:48 Blood - Peripheral Venous Blood Culture - Final NO GROWTH AFTER 5 DAYS INCUBATION 08/05/19 11:25 Blood - Peripheral Venous Blood Culture - Final NO GROWTH AFTER 5 DAYS INCUBATION 08/05/19 10:15 Stool Salmonella/Shigella Culture - Final Yeast Like Organism 08/05/19 10:15 Stool Campylobacter Culture - Final NO GROWTH OF CAMPYLOBACTER SPECIES OBTAINED 08/05/19 10:15 Stool Yersinia Culture - Final NO GROWTH OF YERSINIA SPECIES OBTAINED 08/05/19 10:15 Stool Vibrio Culture - Final NO GROWTH OF VIBRIO SPECIES OBTAINED 08/05/19 10:15 Stool Escherichia coli 0157 Culture - Final NO GROWTH OF E COLI 0157 OBTAINED 08/04/19 19:30 Urine - Urine Clean Catch Urine Culture - Final NO GROWTH OBTAINED 08/05/19 10:15 Stool Gram Stain - Final 08/05/19 06:20 Stool Clostridioides difficile Antigen - Final 08/05/19 06:20 Stool Clostridioides difficile Toxin Assay - Final a/p diarrhea resolved persistent nausea- daptomycin/zosyn for now s/p lumbar laminectomy revision with washout 07/24, 07/27 crp trending down day #15 antibiotics d/w patient at length and with dr ugalde by phone ideally would like to complete 6 weeks antibioitics as we do not have a good explanation for the PMNS seen at the washout or the elevated esr/crp and fevers ?early wound infection in the setting of hardware we have stopped the neurontin (also new) will try to continue the antibiotics if the patient can tolerate otherwise we will need to stop the antibiotics with the understanding by the patient that she is at risk for recurrent infection (she is aware) d/w patient and her mother at the bedside will hopefully be able to discharge home in am patient to f/u with her GI doc for persistent midepigastric pain after discharge dr ugalde will speak to her proofsheet corrector as well-he apparently stopped by [facility] today and spoke to her and will return to speak to her after speaking with her proofsheet corrector Problem List - Problems (1) Diarrhea Code(s): R19.7 - DIARRHEA, UNSPECIFIED (2) S/P lumbar fusion Code(s): Z98.1 - ARTHRODESIS STATUS
--- NOTE | 2019-08-11 17:38 | PN ---
Physical Exam: SUBJECTIVE: Patient seen and examined in the morning. Had no acute events overnight. Patient's diarrhea has started to form into more solid form, still has some nausea. Still has abdominal pain and back pain. No complaints of chest pain, shortness of breath, fever, chills, cough. OBJECTIVE: Vital Signs Period Temp Pulse Resp BP Sys/Mcnamara Pulse Ox Last 24 Hr 98.0 F-98.7 F 64-114 20-22 121-138/41-76 99-99 GENERAL: The patient is awake, alert, and fully oriented, in no acute distress. NECK: Trachea midline, full range of motion, supple. LUNGS: Breath sounds equal, clear to auscultation bilaterally, no wheezes, no crackles, no accessory muscle use. HEART: Regular rate and rhythm, S1, S2 without murmur, rub or gallop. ABDOMEN: Tender to palpation in all 4 quadrants. Non distended, no rebound tenderness. EXTREMITIES: 2+ pulses, warm, well-perfused, no edema. PICC line in place. No erythema. NEUROLOGICAL: Cranial nerves II through XII grossly intact. Full ROM in extremities. Back: Surgical wound is nonerythematous and healing. Laboratory Results - last 24 hr 08/11/19 08/11/19 07:20 07:20 WBC 4.9 RBC 3.07 L Hgb 9.3 L Hct 28.1 L D MCV 91.4 MCH 30.3 MCHC 33.2 RDW 16.7 H Plt Count 377 MPV 9.1 Absolute Neuts (auto) 2.2 Neutrophils % 46.1 Lymphocytes % 36.9 D Monocytes % 14.2 H Eosinophils % 1.6 Basophils % 1.2 Nucleated RBC % 0 Sodium 143 Potassium 3.7 Chloride 110 H Carbon Dioxide 29 Anion Gap 5 L BUN 3.4 L Creatinine 0.7 Est GFR (CKD-EPI)AfAm 117.09 Est GFR (CKD-EPI)NonAf 101.02 Random Glucose 91 Calcium 9.4 Total Bilirubin 0.2 AST 9 L ALT 20 Alkaline Phosphatase 89 C-Reactive Protein 1.1 H Total Protein 6.8 Albumin 3.1 L Active Medications Generic Name Dose Route Start Last Admin Trade Name Freq PRN Reason Stop Dose Admin Acetaminophen 325 mg 08/10/19 10:15 08/11/19 16:50 Tylenol - PO 325 mg Q6H PRN Administration PAIN LEVEL 4 - 6 Baclofen 5 mg 08/05/19 10:00 08/11/19 09:57 Lioresal - PO 5 mg BID NEFTALY Administration Budesonide/Formoterol Fumarate 2 puff 08/05/19 10:00 08/11/19 10:42 Symbicort 80/4.5mcg - IH Not Given BID NEFTALY Enoxaparin Sodium 40 mg 08/05/19 10:00 08/11/19 09:57 Lovenox - SQ 40 mg DAILY NEFTALY Administration Famotidine/Sodium Chloride 20 mg in 50 mls @ 100 mls/hr 08/09/19 22:00 10:01 Pepcid 20 Mg Premixed Ivpb - IVPB 100 mls/hr BID NEFTALY Administration Piperacillin Sod/Tazobactam 100 mls @ 200 mls/hr 08/11/19 11:45 08/11/19 12: 47 Sod 4.5 gm/ Dextrose IVPB 200 mls/hr Q8H-IV NEFTALY Administration Protocol Daptomycin 450 mg/ Sodium 50 mls @ 50 mls/hr 08/11/19 20:00 Chloride IVPB Q24H NEFTALY Protocol Daptomycin 450 mg/ Sodium 50 mls @ 100 mls/hr 08/11/19 22:00 Chloride IVPB 08/11/19 22:29 Q24H ONE Protocol Lactobacillus Acidophilus 1 tab 08/07/19 22:00 08/11/19 09:59 Bacid - PO 1 tab BID NEFTALY Administration Ondansetron HCl 4 mg 08/07/19 14:07 08/11/19 05:36 Zofran Injection IVPB 4 mg Q6H PRN Administration NAUSEA Oxycodone HCl 5 mg 08/10/19 10:07 08/11/19 16:50 Roxicodone - PO 5 mg Q6H PRN Administration PAIN LEVEL 7 - 10 Pyridoxine HCl 25 mg 08/07/19 14:49 08/11/19 09:58 Vitamin B6 - PO 25 mg BID NEFTALY Administration ASSESSMENT/PLAN: 49 F with PMH of asthma and chronic back pain s/p l3-l5 laminectomy with revision 1 week ago who presents with multiple episodes of diarrhea and acute back pain. 1)Diarrhea -No episodes over the weekend, but one episode in the AM. -C.Diff stool studies negative -Patient currently on antibiotics, could be source of infection- Cefepime switched to Zoysn. -F/U stool culture- yeast organism seen. -blood culture- no organisms grown. -NS @ 75 ml/hr -Continue Daptomycin 450 mg IV Daily -Continue Zoysn 4.5 gram IV Q8H -ID consulted, appreciate recs -High level of care required due to poor PO intake and GI symptoms 2) Nausea -Tolerating PO, and less nausous today. -IV Zofran 8mg Q4 PRN -UGIS completed- shows no signs of obstruction. No gastric or duodenal bulb ulcer seen. No GERD during examination. No hiatal hernia. -GI Consulted, appreciate recs -Starting clear liquid diet -Pepcid 20 mg IV -Protonix 40 mg IV 3)Acute on chronic back pain -Patient started on oxycodeone 5 mg PO q6H PRN -Baclofen 5 mg PO BID -Physical therapy -q6 neuro hecks -Component of pain is in legs-likely sciatica- will start Neurontin 100 mg BID -Neurosurgery consulted, appreciate recs 4) Asthma -Albuterol PRN 5)Anemia -chronic normocytic anemia -iron studies negstive -Pyrodixine 25 mg PO BID -Occult blood found in stool -Follow up with GI as outpatient. F: NS @ 75ml E: Monitor CMP N: Clear Liquid Diet DVT: lovenox 40 mg SQ Daily Dispo: for discharge tomorrow Visit type - Emergency Visit Emergency Visit: Yes ED Registration Date: 08/04/19 Care time: The patient presented to the Emergency Department on the above date and was hospitalized for further evaluation of their emergent condition. - New Patient This patient is new to me today: No - Critical Care Critical Care patient: No ATTENDING PHYSICIAN STATEMENT I saw and evaluated the patient. I reviewed the resident's note and discussed the case with the resident. I agree with the resident's findings and plan as documented. SUBJECTIVE: OBJECTIVE: ASSESSMENT AND PLAN:
[2019-08-11] MEDS ORDERED: ONDANSETRON *ODT* 4 MG TABLET SL PRN (17:55)
--- NOTE | 2019-08-11 17:59 | PN ---
Teaching Attending Note Name of Resident: Elmer Griffin ATTENDING PHYSICIAN STATEMENT I saw and evaluated the patient. I reviewed the resident's note and discussed the case with the resident. I agree with the resident's findings and plan as documented. SUBJECTIVE: seen around 11 am No fever or chills. still has some nausea. diarrhea this am , then stool became more formed. cont to have Abd pain OBJECTIVE: NAD. CV: RRR, no MRG Abd: soft, ND, TTP in suprapubic area and epigastric area Lungs: CATB Ext: no edema or erythema on upper or lower ext. Lumbar surgical wound is clean with no erythema ASSESSMENT AND PLAN: 49 y/o lady with h/o asthma, GERD, fibroids s/p hysterectomy, and low back pain and spinal stenossi s/p revisionand fusion 07/23 with complicationof infected wound s/p debridment 07/27 who presented with diarrhea 1- Diarrhea.improved 2- Nausea. improved - offered her to contact GI again for EGD , she is not interested and declined - cont PPI , switch to po - f/u with her GI as out pt 3- H/o recent lumbar surgical wound infection: patient wanted to go back to ZOyn as she thinks cefepime causes HAs. - d/w Paddy Mcgrath: will resume zosyn and dapto - patient was reluctant to cont Abx. after D/w Dr. sellers , she decided to cont . - will be dc on zosyn and dapto cont until Sep 07. - will need CMP, CBC , ESR weekly after dc to be faxed to Dr. sellers. - she will need to see ID in clinic in 1 week - complained of claritza to ID, Benadryl given . Monitor 4- H/o spinal stenosis s/p revision and fusion L3-S1 07/23. - cont oxy 5- Chronic normocytic anemia: GI and heme eval as out pt. 6- Incidental finding of L renal cyst. f/u as out pt 7- LAP: follow up as out pt for biopsy if no resolution. she is aware planned dc for Am . Abx prescription was given to [facility].
[2019-08-11] MEDS ORDERED: DAPTOMYCIN 450 MG in SODIUM CHLORIDE 50 ML IVPB ONE (22:00)
[2019-08-12] MEDS ORDERED: DEXTROSE 5%-WATER 100 ML IVPB ONE ×2 (01:20→09:57)
[2019-08-12] MEDS ORDERED: PIPERACILLIN/TAZOBACTAM 4.5 GM VIAL IVPB ONE ×2 (01:20→09:57)
[2019-08-12] MEDS: PIPERACILLIN/TAZOB 4.5 GM 4.5 GM in DEXTROSE 5%-WATER 100 ML IVPB SCH ×2 (01:22→10:10)
[2019-08-12 08:10] LABS: BASO % 1.2 % (0-2.0); HEMATOCRIT 25.9 % (32.4-45.2); LYMPH % 38.2 % (8-40); MCH 31.6 pg (25.7-33.7); MCHC 34.6 g/dl (32.0-36.0); MEAN CELL VOLUME 91.5 fl (80-96); MEAN PLT VOLUME 9.4 fl (7.5-11.1); MONO % 16.1 % (3.8-10.2); NEUT % 42.5 % (42.8-82.8); PLATELET COUNT 368 K/MM3 (134-434); RBC 2.84 M/mm3 (3.60-5.2); RDW 16.6 % (11.6-15.6); WHITE BLOOD COUNT 4.1 K/mm3 (4.0-10.0)
[2019-08-12 08:53] LABS: BLOOD UREA NITROGEN 4.7 mg/dL (7-18); CALCIUM 8.8 mg/dL (8.5-10.1); CREATININE 0.7 mg/dL (0.55-1.3); POTASSIUM 3.5 mmol/L (3.5-5.1)
--- NOTE | 2019-08-12 09:23 | PN ---
Teaching Attending Note Name of Resident: Elmer Griffin ATTENDING PHYSICIAN STATEMENT I saw and evaluated the patient. I reviewed the resident's note and discussed the case with the resident. I agree with the resident's findings and plan as documented. SUBJECTIVE: No fever or chills. no further nausea, . diarrhea this am , then stool became more formed. cont to have Abd pain Vital Signs Temperature 98.2 F 08/12/19 08:05 Pulse Rate 88 08/12/19 08:05 Respiratory Rate 20 08/12/19 08:05 Blood Pressure 133/77 08/12/19 08:05 O2 Sat by Pulse Oximetry (%) 99 08/11/19 21:00 GENERAL: The patient is awake, alert, and fully oriented, in no acute distress. HEAD: Normal with no signs of trauma. EYES: PERRL, extraocular movements intact, sclera anicteric, conjunctiva clear. No ptosis. ENT: Ears normal, nares patent, oropharynx clear without exudates, moist mucous membranes. NECK: Trachea midline, full range of motion, supple. LUNGS: Breath sounds equal, clear to auscultation bilaterally, no wheezes, no crackles, no accessory muscle use. HEART: Regular rate and rhythm, S1, S2 without murmur, rub or gallop. ABDOMEN: Soft, nontender, nondistended, normoactive bowel sounds, no guarding, no rebound, no hepatosplenomegaly, no masses. Lumbar surgical wound is clean with no erythema EXTREMITIES: 2+ pulses, warm, well-perfused, no edema. NEUROLOGICAL: Cranial nerves II through XII grossly intact. Normal speech, gait not observed. PSYCH: Normal mood, normal affect. SKIN: Warm, dry, normal turgor, no rashes or lesions noted CBCD WBC 4.1 K/mm3 (4.0-10.0) 08/12/19 07:05 RBC 2.84 M/mm3 (3.60-5.2) L 08/12/19 07:05 Hgb 9.0 GM/dL (10.7-15.3) L 08/12/19 07:05 Hct 25.9 % (32.4-45.2) L 08/12/19 07:05 MCV 91.5 fl (80-96) 08/12/19 07:05 MCHC 34.6 g/dl (32.0-36.0) 08/12/19 07:05 RDW 16.6 % (11.6-15.6) H 08/12/19 07:05 Plt Count 368 K/MM3 (134-434) 08/12/19 07:05 MPV 9.4 fl (7.5-11.1) 08/12/19 07:05 CMP Sodium 141 mmol/L (136-145) 08/12/19 07:05 Potassium 3.5 mmol/L (3.5-5.1) 08/12/19 07:05 Chloride 108 mmol/L (98-107) H 08/12/19 07:05 Carbon Dioxide 26 mmol/L (21-32) 08/12/19 07:05 Anion Gap 8 MMOL/L (8-16) 08/12/19 07:05 BUN 4.7 mg/dL (7-18) L 08/12/19 07:05 Creatinine 0.7 mg/dL (0.55-1.3) 08/12/19 07:05 Random Glucose 92 mg/dL (74-106) 08/12/19 07:05 Calcium 8.8 mg/dL (8.5-10.1) 08/12/19 07:05 Total Bilirubin 0.2 mg/dL (0.2-1) 08/11/19 07:20 AST 9 U/L (15-37) L 08/11/19 07:20 ALT 20 U/L (13-61) 08/11/19 07:20 Alkaline Phosphatase 89 U/L (45-117) 08/11/19 07:20 Total Protein 6.8 g/dl (6.4-8.2) 08/11/19 07:20 Albumin 3.1 g/dl (3.4-5.0) L 08/11/19 07:20 CARDIAC ENZYMES Creatine Kinase 26 U/L (26-192) 08/05/19 07:45 Troponin I < 0.02 ng/ml (0.00-0.05) 08/09/19 01:03 EST Current Medications Generic Name Dose Route Start Last Admin Trade Name Freq PRN Reason Stop Dose Admin Acetaminophen 325 mg 08/10/19 10:15 08/11/19 23:25 Tylenol - PO 325 mg Q6H PRN Administration PAIN LEVEL 4 - 6 Baclofen 5 mg 08/05/19 10:00 08/11/19 21:35 Lioresal - PO 5 mg BID NEFTALY Administration Budesonide/Formoterol Fumarate 2 puff 08/05/19 10:00 08/11/19 21:35 Symbicort 80/4.5mcg - IH Not Given BID NEFTALY Enoxaparin Sodium 40 mg 08/05/19 10:00 08/11/19 09:57 Lovenox - SQ 40 mg DAILY NEFTALY Administration Piperacillin Sod/Tazobactam 100 mls @ 200 mls/hr 08/11/19 11:45 08/12/19 01: 22 Sod 4.5 gm/ Dextrose IVPB 200 mls/hr Q8H-IV NEFTALY Administration Protocol Daptomycin 450 mg/ Sodium 50 mls @ 50 mls/hr 08/12/19 20:00 Chloride IVPB Q24H NEFTALY Protocol Lactobacillus Acidophilus 1 tab 08/07/19 22:00 08/11/19 21:35 Bacid - PO 1 tab BID NEFTALY Administration Ondansetron HCl 4 mg 08/11/19 17:55 Zofran Odt - SL Q12H PRN NAUSEA Oxycodone HCl 5 mg 08/10/19 10:07 08/11/19 23:24 Roxicodone - PO 5 mg Q6H PRN Administration PAIN LEVEL 7 - 10 Pantoprazole Sodium 40 mg 08/12/19 10:00 Protonix - PO DAILY [facility] Pyridoxine HCl 25 mg 08/07/19 14:49 08/11/19 21:34 Vitamin B6 - PO 25 mg BID NEFTALY Administration Home Medications Medication Instructions Recorded Baclofen 5 mg PO BID 07/22/19 Dexlansoprazole [Dexilant -] 60 mg PO DAILY 07/22/19 HYDROmorphone [Dilaudid -] 2 mg PO Q4H PRN 07/22/19 Fluticasone/Salmeterol [Advair 1 each IH PRN PRN 07/23/19 250-50 Diskus] Oxycodone HCl/Acetaminophen 1 - 2 tab PO Q6H PRN #20 tab MDD 8 07/24/19 [Percocet 5-325 mg Tablet] Albuterol 0.083% Nebulizer Sakina 1 amp NEB Q4H PRN amp 07/30/19 [Ventolin 0.083% Nebulizer Soln -] Daptomycin 450 mg IV DAILY #27 vial 08/11/19 Piperacillin Sodium/Tazobactam 4.5 gm IV Q8H #81 vial 08/11/19 [Zosyn 4.5 Gram Vial] ASSESSMENT AND PLAN: Patient is a 49yo female with PMhx of asthma, GERD, fibroids s/p hysterectomy, and low back pain and spinal stenosis s/p revisionand fusion 07/23 with complicationof infected wound s/p debridment 07/27 who presented with nausea and diarrhea # Diarrhea.improved # Nausea. improved # H/o recent lumbar surgical wound infection: patient wanted to go back to ZOyn as she thinks cefepime causes HAs. - as per Dr. Thomason: to continue with zosyn and dapto - CMP, CBC , ESR weekly after dc to be faxed to Dr. thomason. - she will need to follow up with ID in clinic and the labs to be send to ID in 1 week # H/o spinal stenosis s/p revision and fusion L3-S1 07/23. follow up with Neuro[facility] Dr.Choudry Perdomo # Chronic normocytic anemia: GI and heme eval as out pt. # Incidental finding of L renal cyst. f/u as out pt # LAP: follow up as out pt for biopsy if no resolution. she is aware Abx prescription was given to SW. is being arranged patient to f/u with her GI doc for persistent midepigastric pain after discharge since refused endoscopy here dr ugalde to speak to her basket turner as well no objection to d/c home - prescriptions have been given to the d/c train planner for the infusion company patient to follow up with ID.
--- NOTE | 2019-08-12 09:24 | PN ---
Progress Note (short form) - Note Progress Note: diarrhea resolved still some midepigastric discomfort less nausea ate oatmeal Vital Signs Period Temp Pulse Resp BP Sys/Mcnamara Pulse Ox Last 24 Hr 98.0 F-98.7 F 64-114 20-20 127-138/41-77 99 cor-rrr lungs clear abd midepigastric discomfort to deep palpation soft,nt ext no edema CBC, BMP 08/12/19 07:05 08/12/19 07:05 Microbiology 08/05/19 11:48 Blood - Peripheral Venous Blood Culture - Final NO GROWTH AFTER 5 DAYS INCUBATION 08/05/19 11:25 Blood - Peripheral Venous Blood Culture - Final NO GROWTH AFTER 5 DAYS INCUBATION 08/05/19 10:15 Stool Salmonella/Shigella Culture - Final Yeast Like Organism 08/05/19 10:15 Stool Campylobacter Culture - Final NO GROWTH OF CAMPYLOBACTER SPECIES OBTAINED 08/05/19 10:15 Stool Yersinia Culture - Final NO GROWTH OF YERSINIA SPECIES OBTAINED 08/05/19 10:15 Stool Vibrio Culture - Final NO GROWTH OF VIBRIO SPECIES OBTAINED 08/05/19 10:15 Stool Escherichia coli 0157 Culture - Final NO GROWTH OF E COLI 0157 OBTAINED 08/04/19 19:30 Urine - Urine Clean Catch Urine Culture - Final NO GROWTH OBTAINED 08/05/19 10:15 Stool Gram Stain - Final 08/05/19 06:20 Stool Clostridioides difficile Antigen - Final 08/05/19 06:20 Stool Clostridioides difficile Toxin Assay - Final a/p diarrhea resolved persistent nausea- daptomycin/zosyn for now s/p lumbar laminectomy revision with washout 07/24, 07/27 crp trending down day #16 antibiotics d/w patient at length and with dr ugalde by phone ideally would like to complete 6 weeks antibioitics as we do not have a good explanation for the PMNS seen at the washout or the elevated esr/crp and fevers ?early wound infection in the setting of hardware we have stopped the neurontin (also new) will try to continue the antibiotics if the patient can tolerate otherwise we will need to stop the antibiotics with the understanding by the patient that she is at risk for recurrent infection (she is aware) d/w patient and her mother at the bedside was on medical marijuana prior to the original surgery- could this be related to her nausea? 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
[2019-08-12] MEDS ORDERED: PANTOPRAZOLE 40 MG TABLET (FP) PO SCH (10:00)
[2019-08-12] MEDS: oxyCODONE HCL 5 MG TABLET PO PRN (10:09)
[2019-08-12] MEDS: PYRIDOXINE HCL (B-6) 50 MG TABLET (FP) PO SCH (10:11)
[2019-08-12] MEDS: BACLOFEN 10 MG TABLET (FP) PO SCH (10:11)
[2019-08-12] MEDS: LACTOBACILLUS ACIDOPHILUS 1 TABLET PO SCH (10:11)
[2019-08-12] MEDS: ENOXAPARIN NA (PORCINE) 40 MG/0.4 ML DISP.SYRIN SQ SCH (10:13)
[2019-08-12] MEDS: BUDESONIDE/FORMETEROL FUMARATE 80/4.5 mcg INHALER IH SCH (10:26)
[2019-08-12] MEDS ORDERED: POTASSIUM CHLORIDE TABS 20 MEQ TABLET.ER (FP) PO ONE (10:51)
[2019-08-12 12:03] VITALS: BP 144/80; PULSE 73; TEMP 98.4
--- NOTE | 2019-08-12 13:15 | DS ---
Physical Exam: SUBJECTIVE: Patient seen and examined in the morning. No acute events overnight. Patient complains of chronic back pain, and abdominal pain. Nausea has diminished. No complaints of chest pain, shortness of breath, abdominal pain , no cough, no chills, no fever overnight. OBJECTIVE: Vital Signs Period Temp Pulse Resp BP Sys/Mcnamara Pulse Ox Last 24 Hr 98.0 F-98.7 F 73-114 20-20 127-144/41-80 99 PHYSICAL EXAM GENERAL: The patient is awake, alert, and fully oriented, in no acute distress. NECK: Trachea midline, full range of motion, supple. LUNGS: Breath sounds equal, clear to auscultation bilaterally, no wheezes, no crackles, no accessory muscle use. HEART: Regular rate and rhythm, S1, S2 without murmur, rub or gallop. ABDOMEN: Tender to palpation in all 4 quadrants. Non distended, no rebound tenderness. EXTREMITIES: 2+ pulses, warm, well-perfused, no edema. PICC line in place. No erythema. NEUROLOGICAL: Cranial nerves II through XII grossly intact. Full ROM in extremities. Back: Surgical wound is nonerythematous and healing. LABS Laboratory Results - last 24 hr CBC, BMP 08/12/19 07:05 08/12/19 07:05 Microbiology 08/05/19 11:48 Blood - Peripheral Venous Blood Culture - Final NO GROWTH AFTER 5 DAYS INCUBATION 08/05/19 11:25 Blood - Peripheral Venous Blood Culture - Final NO GROWTH AFTER 5 DAYS INCUBATION 08/05/19 10:15 Stool Salmonella/Shigella Culture - Final Yeast Like Organism 08/05/19 10:15 Stool Campylobacter Culture - Final NO GROWTH OF CAMPYLOBACTER SPECIES OBTAINED 08/05/19 10:15 Stool Yersinia Culture - Final NO GROWTH OF YERSINIA SPECIES OBTAINED 08/05/19 10:15 Stool Vibrio Culture - Final NO GROWTH OF VIBRIO SPECIES OBTAINED 08/05/19 10:15 Stool Escherichia coli 0157 Culture - Final NO GROWTH OF E COLI 0157 OBTAINED 08/04/19 19:30 Urine - Urine Clean Catch Urine Culture - Final NO GROWTH OBTAINED 08/05/19 10:15 Stool Gram Stain - Final 08/05/19 06:20 Stool Clostridioides difficile Antigen - Final 08/05/19 06:20 Stool Clostridioides difficile Toxin Assay - Final HOSPITAL COURSE: Date of Admission:08/04/19 Date of Discharge: 08/12/19 49 F with PMH of asthma and chronic back pain s/p l3-l5 laminectomy with revision 2 week ago who presents with multiple episodes of diarrhea and acute back pain. Patient was on IV Daptomycin and Cefepime at home, and was continued in the hospital initially. CT abdomen/pelvis was done which did not show any abdominal pathology. Patient had stool cultures tested for C.Diff, which was negative. Stool cultures only resulted yeast like organisms. Patient developed nausea and began wretching during stay. GI was consulted who recommended looking at antibiotic regimen once more. ID switched Cefepime to Zoysn 4.25 mg Q8H, and patient tolerated Daptomycin and Zoysn further. Upper GI series was done which did not show any abnormalities. Patient had swelling of the right arm where PICC line is inserted, however U/S ruled out DVT and phlebitis. Patient's nausea and vomiting resolved, with stools becoming more formed on 02/22 and patient was discharged 08/12/19. Patient was discharged with 27 days of IV Daptomycin 450 mg Daily, and 27 days of Zoysn 4.5 grams Q8H. Relevant Imaging Done This Stay: CT abdomen and pelvis: 0.9 cm left renal hypodense focus is seen probably representing a cyst. Correlation with nonemergent sonography is suggested to exclude a solid nodule. Postsurgical changes are noted within the lumbar spine. Several mildly prominent bilateral inguinal lymph nodes are observed. Absent vs atrophic uterus. PICC line in place. US Duplex Vascular: No sonographic evidence of right arm DVT is identified. There is no obvious superficial thrombophelibitis. Upper GI Series: No evidence of obstruction. No gasric or duodneal bulb ulcer is seen. No gastroesophageal reflux observed during examination. No evidence of hiatal hernia. Minutes to complete discharge: 35 Discharge Summary Problems reviewed: Yes Reason For Visit: INTRACTABLE LOW BACK PAIN,UNABLE TO WALK Current Active Problems Abdominal pain (Chronic) Anemia (Chronic) Back pain (Chronic) Intractable low back pain (Chronic) Lymphadenopathy (Chronic) Nausea (Chronic) Condition: Improved - Instructions Diet, Activity, Other Instructions: You were admitted to the hospital because you were having diarrhea and eating less, and we were concerned you were having an infection. We tested your stool and saw no signs of infection. You had episodes of nausea and vomiting and we evaluated your digestive tract and it was normal. Your diarrhea resolved while you were admitted and we think you are stable for discharge. We saw a renal cyst you have on a CT scan we did, you need to follow this up with your primary care doctor. One of the stool samples we tested had a little blood in it, so we are referring you to a GI specialist. Please follow up with them. Please continue taking your home medications, including the antibiotics through the IV, as directed. We changed the antibiotics. You will now be taking Zoysn 4.5 gm daily, through the IV for the next 4 weeks. Please continue the Daptomycin 450 mg through the IV for the next 4 weeks. Please do not continue Cefepime and throw it out when you get home. Please follow up with your primary care physician in a week. Please follow up with the GI specialist regarding your anemia and nausea within a week. Please follow up with a soil surveyor regarding the enlarged lymph nodes in your groin we saw on your scans Please continue follow up with Dr. Self You need to continue your weekly blood work (CBC, CMP, ESR, CRP) while on these antibiotics Return to the ED if you have continued diarrhea, nausea and vomiting, fever, chills, or worsening pain in your surgical site. Referrals: Tin Schmitz MD, FAANS [Staff Physician] - 1 Week Pascual Esteves DO [Staff Physician] - 1 Week lAeksandra Delaney MD [Primary Care Provider] - 1 Week Alla Thomason MD [Staff Physician] - 1 Week Disposition: HOME - Home Medications Comprehensive Discharge Medication List: Ambulatory Orders Baclofen 5 mg PO BID 07/22/19 Dexlansoprazole [Dexilant -] 60 mg PO DAILY 07/22/19 HYDROmorphone [Dilaudid -] 2 mg PO Q4H PRN 07/22/19 Fluticasone/Salmeterol [Advair 250-50 Diskus] 1 each IH PRN PRN 07/23/19 Oxycodone HCl/Acetaminophen [Percocet 5-325 mg Tablet] 1 - 2 tab PO Q6H PRN #20 tab MDD 8 07/24/19 Albuterol 0.083% Nebulizer Sakina [Ventolin 0.083% Nebulizer Soln -] 1 amp NEB Q4H PRN amp 07/30/19 Daptomycin 450 mg IV DAILY #27 vial 08/11/19 Piperacillin Sodium/Tazobactam [Zosyn 4.5 Gram Vial] 4.5 gm IV Q8H #81 vial 02/22 Daptomycin [Cubicin (Restricted To Id) -] 450 mg IVPB Q24H vial 08/12/19 Piperacillin/Tazob 4.5 gm [Zosyn -] 4.5 gm IVPB Q8H-IV vial 08/12/19 Pyridoxine HCl (B-6) [Vitamin B6 -] 25 mg PO BID tablet 08/12/19 This patient is new to me today: No Emergency Visit: Yes ED Registration Date: 08/04/19 Care time: The patient presented to the Emergency Department on the above date and was hospitalized for further evaluation of their emergent condition. Critical Care patient: No - Discharge Referral Referred to [facility] Med P.C.: No ATTENDING PHYSICIAN STATEMENT I saw and evaluated the patient. I reviewed the resident's note and discussed the case with the resident. I agree with the resident's findings and plan as documented. SUBJECTIVE: OBJECTIVE: ASSESSMENT AND PLAN:
[2019-08-12] MEDS ORDERED: DAPTOMYCIN 450 MG in SODIUM CHLORIDE 50 ML IVPB SCH (20:00)
[2019-08-13 13:40] VITALS: BMI 26.8
--- NOTE | 2019-08-13 16:41 | PN ---
Progress Note (short form) - Note Progress Note: NEUROSURGERY Patient seen and examined on August 11, 2019. Clinical course and chart reviewed in detail. At this point her wound is well healed with no erythema, tenderness, swelling or drainage. She has been afebrile and continues on antibiotics per Dr. Thomason. Patient with resolving diarrhea and nausea. She feels that her antibiotics are the primary cause of her GI difficulties. Case discussed at length with her Hospitalist team (Charline), infectious Diseases (Paddy) and PCP (Aleksandra Mathews) . All are in agreement with continuation of antibiotics and outpatient workup of persisting GI problems. No neurosurgical contraindications to discharge as planned.
== END 2019-08-12 15:37 | disposition home or self-care (01) | DRG 395 ==
LOC: JER 17:02 → JERBED 23:11 → J6S 08-05 02:04
PROVIDERS: ADMIT Internal Medicine; ATTEND Internal Medicine
DX: K91.89 Other postprocedural complications and disorders of digestive system (principal); R19.7 Diarrhea, unspecified; R50.82 Postprocedural fever; R11.2 Nausea with vomiting, unspecified; D64.9 Anemia, unspecified; E88.09 Other disorders of plasma-protein metabolism, not elsewhere classified; R33.9 Retention of urine, unspecified; N28.1 Cyst of kidney, acquired; J45.909 Unspecified asthma, uncomplicated; K31.9 Disease of stomach and duodenum, unspecified; R59.1 Generalized enlarged lymph nodes; M54.5 Low back pain; Z98.1 Arthrodesis status; Y83.8 Other surgical procedures as the cause of abnormal reaction of the patient, or of later complication, without mention of misadventure at the time of the procedure
CPT/HCPCS: 36415; 74177-TC; 74240-TC-FY; 80048; 80053; 81003; 82150; 82272; 82550; 82607; 82728; 82746; 83540; 83550; 83690; 83735; 84100; 84132; 84484; 84703; 85025; 85044; 85651; 86140; 87040; 87045; 87046; 87086; 87205; 87324; 87449; 93005; 93010; 93971; 97116-GP; 97162-GP; 99284-25; J0131; J0475; J0878; J2997; J7030